=== PATIENT | male | born 1955 | race African-American/Black ===

== ENCOUNTER → 2017-02-16 | Outpatient (CLI) | payer MEDICARE ==
[~2017-02-16] MED LIST: REGADENOSON 0.4 MG/5 ML SYRINGE IV ONE
--- NOTE | 2017-02-16 13:56 | NM ---
EXAMINATION TYPE: NM stress lexiscan cardiolite DATE OF EXAM: 02/16/2017 COMPARISON: NONE HISTORY: Precordial chest pain, abnormal EKG TECHNIQUE: After the intravenous administration of 10.22 mCi Tc 99m Sestamibi - Cardiolite resting S PECT images acquired 45 minutes post injection. The patient received 0.4mg Lexiscan, 27.4 mCi Tc 99m Sestamibi - Stress images obtained [address] injection FINDINGS: Review of stress and rest SPECT images demonstrates fixed defect lateral wall and inferior wall. Foca l area of decreased perfusion on stress imaging involving the cardiac apex. Gated analysis shows norm al wall motion with an estimated left ventricular ejection fraction of 64 %. IMPRESSION: Stress-induced ischemia cardiac apex is difficult to exclude.
--- NOTE | 2017-02-17 07:26 | EST ---
EXERCISE STRESS AGE: 62 SEX: M HT: 6' WT: 341 PROTOCOL: LEXISCAN CARDIOLITE STRESS TEST STAGE: - DURATION OF EXERCISE: - HEART RATE REST: 84 BLOOD PRESSURE REST: 129/70 MAXIMUM HEART RATE ACHIEVED: 92 MAXIMUM BLOOD PRESSURE: 118/74 85% MPHR: - 100% MPHR: - METS: - INDICATIONS: Abnormal EKG. CLINICAL INFORMATION: Baseline EKG revealed a normal sinus rhythm with nonspecific T-wave flattening. With Lexiscan administration, the heart rate changed from 84 to 92 beats per minute and the blood pressure changed from 129/70 to 118/74. EKG remained unremarkable. Patient did not have any angina. By EKG criteria, this is an unremarkable Lexiscan stress test. The nuclear scan results which are more pertinent, will be reported by the radiologist. MMSARITHAL / IJN: [id number] /
== END | disposition home or self-care (01) ==
LOC: RADNMMAIN 09:03
PROVIDERS: ATTEND Internal Medicine
DX: I20.8 Other forms of angina pectoris (principal)
CPT/HCPCS: 93017; 78452; A9500; J2785

== ENCOUNTER 2017-03-02 17:35 | Inpatient (IN) | payer MEDICARE ==
[2017-03-02] MEDS ORDERED: RX INFO: IV CONTRAST WAS GIVEN 1 EACH MISC MISCELLANE PRN (18:45)
--- NOTE | 2017-03-02 18:55 | ED ---
General Adult HPI <Franklin Shaw - Last Filed: 03/02/17 21:18> - General Source: patient, RN notes reviewed Mode of arrival: ambulatory Limitations: no limitations <Eugenio Best - Last Filed: 03/02/17 21:22> - General Chief complaint: Recheck/Abnormal Lab/Rx Stated complaint: swollen glands Time Seen by Provider: 03/02/17 18:17 - History of Present Illness Initial comments: 62-year-old male who presents emergency room today with chief complaint of right -sided throat and neck swelling. He states that he was seen here in the emergency room just 2 days ago he started having some discomfort on the right side was told that there was a salivary stone. States it was 7 mm. States once he got much worse over the last day. She is having a difficult time swallowing at times and eating because his pain. States he is tolerating oral secretions. Patient denies any other complaints associated symptoms. She admits to some fever and chills. Patient denies any recent shortness of breath , chest pain, back pain, abdominal pain, nausea or vomiting, numbness or tingling, dysuria or hematuria, constipation or diarrhea, headaches or visual changes, or any other complaints. (Eugenio Best) - Related Data Home Medications Medication Instructions Recorded Confirmed Losartan/Hydrochlorothiazide 1 tab PO DAILY 03/01/17 03/02/17 [Losartan-Hctz 100-25 mg Tab] metFORMIN HCL 1,000 mg PO BID 03/01/17 03/02/17 Atorvastatin [Lipitor] 20 mg PO HS 03/02/17 03/02/17 Cabergoline 0.5 mg PO MOFR 03/02/17 03/02/17 Previous Rx's Medication Instructions Recorded Amoxic-Pot Clav 875-125Mg 1 tab PO Q12HR #20 tablet 03/01/17 [Augmentin 875-125] Fluticasone Nasal [place] [Flonase 1 spray EA NOSTRIL DAILY #1 bottle 03/01/17 Nasal [place]] Allergies Allergy/AdvReac Type Severity Reaction Status Date / Time No Known Allergies Allergy Verified 03/02/17 19:23 Review of Systems ROS Other: All systems not noted in ROS Statement are negative. <Franklin Shaw - Last Filed: 03/02/17 21:18> ROS Other: All systems not noted in ROS Statement are negative. <Eugenio Best - Last Filed: 03/02/17 21:22> ROS Statement: Those systems with pertinent positive or pertinent negative responses have been documented in the HPI. 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 Eye: Pupils are equal, round and reactive to light, extra-ocular movements are intact. No nystagmus. There is normal conjunctiva bilaterally. No signs of icterus. Ears, nose, mouth and throat: There are moist mucous membranes and no oral lesions. Moderate swelling to the right side of the neck and lower jaw. There is firm on palpation. Neck: The neck is supple, there is no tenderness or JVD. Cardiovascular: There is a regular rate and rhythm. No murmur, rub or gallop is appreciated. Respiratory: Lungs are clear to auscultation, respirations are non-labored, breath sounds are equal. No wheezes, stridor, rales, or rhonchi. Musculoskeletal: Normal ROM, no tenderness. Strength 5/5. Sensation intact. Pulses equal bilaterally 2+. Neurological: A&O x 3. CN II-XII intact, There are no obvious motor or sensory deficits. Coordination appears grossly intact. Speech is normal. Skin: Skin is warm and dry and no rashes or lesions are noted. Psychiatric: Cooperative, appropriate mood & affect, normal judgment. (Eugenio Best) Course <Franklin Shaw - Last Filed: 03/02/17 21:18> <NasirEugenio - Last Filed: 03/02/17 21:22> Vital Signs 03/02/17 03/02/17 18:07 19:36 Temperature 99.9 F H 99.9 F H Pulse Rate 97 90 Respiratory 18 24 Rate Blood Pressure 170/83 131/61 O2 Sat by Pulse 96 97 Oximetry - Reevaluation(s) Reevaluation #1: 03/02/17 21:18 I did personally do a [id number] evaluation the patient did discuss findings with him and his . Patient does have evidence of submandibular soft tissue swelling no palpable mass on excoriation of the floor of the mouth. Patient does maintain his airway. I did review the CAT scan are is evidence of 70 No evidence of any abscess or phlegmon. I did discuss case with Dr. Deutsch. The patient will be admitted with consultation by Dr. Nicole. (Franklin Shaw) Medical Decision Making - Lab Data Result diagrams: 03/02/17 19:14 03/02/17 19:14 <Franklin Shaw - Last Filed: 03/02/17 21:18> - Lab Data Result diagrams: 03/02/17 19:14 03/02/17 19:14 <Eugenio Best - Last Filed: 03/02/17 21:22> - Lab Data Lab Results 03/02/17 03/02/17 03/02/17 Range/Units 19:14 19:14 19:14 WBC 15.2 H (3.8-10.6) k/uL RBC 4.43 (4.30-5.90) m/uL Hgb 12.6 L (13.0-17.5) gm/dL Hct 38.6 L (39.0-53.0) % MCV 87.2 (80.0-100.0) fL MCH 28.3 (25.0-35.0) pg MCHC 32.5 (31.0-37.0) g/dL RDW 13.8 (11.5-15.5) % Plt Count 248 (150-450) k/uL Neutrophils % 77 % Lymphocytes % 14 % Monocytes % 5 % Eosinophils % 3 % Basophils % 1 % Neutrophils # 11.7 H (1.3-7.7) k/uL Lymphocytes # 2.1 (1.0-4.8) k/uL Monocytes # 0.7 (0-1.0) k/uL Eosinophils # 0.4 (0-0.7) k/uL Basophils # 0.1 (0-0.2) k/uL PT 11.2 (9.0-12.0) sec INR 1.1 (<1.2) APTT 27.8 (22.0-30.0) sec Sodium 143 (137-145) mmol/L Potassium 3.5 (3.5-5.1) mmol/L Chloride 102 (98-107) mmol/L Carbon Dioxide 27 (22-30) mmol/L Anion Gap 14 mmol/L BUN 8 L (9-20) mg/dL Creatinine 0.71 (0.66-1.25) mg/dL Est GFR (MDRD) Af Amer >60 (>60 ml/min/1.73 sqM) Est GFR (MDRD) Non-Af >60 (>60 ml/min/1.73 sqM) Glucose 131 H (74-99) mg/dL Calcium 9.7 (8.4-10.2) mg/dL Total Bilirubin 2.6 H (0.2-1.3) mg/dL AST 31 (17-59) U/L ALT 50 (21-72) U/L Alkaline Phosphatase 79 (38-126) U/L Total Protein 8.3 H (6.3-8.2) g/dL Albumin 4.4 (3.5-5.0) g/dL Disposition <Franklin Shaw - Last Filed: 03/02/17 21:18> Time of Disposition: 21:21 <Eugenio Best - Last Filed: 03/02/17 21:22> Clinical Impression: Sialadenitis, Submandibular swelling Disposition: ADMITTED IP TO THIS HOSP Condition: Good Referrals: Yg Gibson MD [Primary Care Provider] - 1-2 days
[2017-03-02 19:21] LABS: Basophils # (A) 0.1 k/uL (0-0.2); Basophils % (A) 1 %; CH 28.8; CHCM 33.2; Eosinophils # (A) 0.4 k/uL (0-0.7); Eosinophils % (A) 3 %; HCT 38.6 % (39.0-53.0); HDW 2.84; HGB 12.6 gm/dL (13.0-17.5); Luc # (Auto) 0.15; Luc % (Auto) 1; Lymphocytes # (A) 2.1 k/uL (1.0-4.8); Lymphocytes % (A) 14 %; MCH 28.3 pg (25.0-35.0); MCHC 32.5 g/dL (31.0-37.0); MCV 87.2 fL (80.0-100.0); Mean Platelet Volume 8.4; Monocytes # (A) 0.7 k/uL (0-1.0); Monocytes % (A) 5 %; Neutrophils # (A) 11.7 k/uL (1.3-7.7); Neutrophils % (A) 77 %; RBC 4.43 m/uL (4.30-5.90); RDW 13.8 % (11.5-15.5); WBC 15.2 k/uL (3.8-10.6)
[2017-03-02 19:29] LABS: INR 1.1 (<1.2); Partial Thromboplastin Time 27.8 sec (22.0-30.0); Prothrombin Time 11.2 sec (9.0-12.0)
[2017-03-02 19:37] LABS: ALT 50 U/L (21-72); AST 31 U/L (17-59); Alkaline Phosphatase 79 U/L (38-126); Anion Gap 14 mmol/L; Blood Urea Nitrogen 8 mg/dL (9-20); Calcium 9.7 mg/dL (8.4-10.2); Carbon Dioxide 27 mmol/L (22-30); Chloride 102 mmol/L (98-107); Glucose 131 mg/dL (74-99); Non-African American GFR(MDRD) >60 (>60 ml/min/1.73 sqM); Potassium 3.5 mmol/L (3.5-5.1); Sodium 143 mmol/L (137-145); Total Bilirubin 2.6 mg/dL (0.2-1.3); Total Protein 8.3 g/dL (6.3-8.2)
--- NOTE | 2017-03-02 20:25 | CT ---
EXAMINATION TYPE: CT soft tissue neck w con DATE OF EXAM: 03/02/2017 8:15 PM COMPARISON: 03/01/2017 HISTORY: Neck swelling under chin area. CT DLP: 687 mGycm Automated exposure control for dose reduction was used. CONTRAST: CT scan of the neck is performed following with IV Contrast, patient injected with 100 mL of Omnipaqu e 300. Axial images are obtained, coronal and sagittal reformatted images are reviewed. FINDINGS: Epiglottis appears normal. Prevertebral soft tissues are not enlarged. Parotid glands are symmetric. The right submandibular salivary gland is slightly larger than the left and shows slight enhancement. . There is increased density on the right side of the hypopharynx which is narrowing the airway to so me degree. This measures up to 15 mm in thickness. There is normal contrast opacification of the carotid arteries and jugular veins. The thyroid gland i s symmetric. The mid and lower trachea appear normal. Tonsils and adenoids appear normal. IMPRESSION: There is evidence of soft tissue swelling on the right side of the hypopharynx and upper trachea that appears new compared to yesterday and consistent with inflammatory process. No abscess seen. There is no drainable fluid collection. There is asymmetric submandibular salivary gland on the right side that could relate to inflammatory process. This is unchanged compared to yesterday. There is new mild subcutaneous edema in the submandibular region compared to last exam.
[2017-03-02] MEDS ORDERED: PIPERACILLIN-TAZOBACTAM 3.375 GM in DEXTROSE/WATER 1 50ML.BAG IVPB STA (20:38)
[2017-03-02] MEDS ORDERED: NALOXONE 0.4 MG/ML 1 ML VIAL IV PRN (21:15)
[2017-03-02] MEDS ORDERED: methylPREDNISolone SOD SUCCI 125 MG/2 ML VIAL IV STA (21:15)
[2017-03-02] MEDS ORDERED: HYDROmorphone 1 MG/ML 1 ML SYRINGE IV PRN (21:15)
[2017-03-02] MEDS ORDERED: ACETAMINOPHEN TAB 325 MG TAB PO PRN (21:15)
[2017-03-02] MEDS ORDERED: ONDANSETRON 4 MG/2 ML VIAL IVP PRN (21:15)
[2017-03-02] MEDS: HYDROcodone/APAP 5-325MG 1 EACH TAB PO PRN (22:34)
[2017-03-03] MEDS: PIPERACILLIN-TAZOBACTAM 3.375 GM in DEXTROSE/WATER 1 50ML.BAG IVPB SCH ×3 (05:19→20:55)
[2017-03-03 07:22] LABS: Glucose,Whole Blood 224 mg/dL (75-99)
[2017-03-03 09:45] LABS: Basophils % (A) 0 %; CH 28.8; CHCM 32.1; Eosinophils # (A) 0.1 k/uL (0-0.7); Eosinophils % (A) 0 %; HCT 39.6 % (39.0-53.0); HDW 2.81; HGB 12.2 gm/dL (13.0-17.5); Luc # (Auto) 0.03; Luc % (Auto) 0; Lymphocytes # (A) 0.9 k/uL (1.0-4.8); Lymphocytes % (A) 6 %; MCH 27.9 pg (25.0-35.0); MCHC 30.8 g/dL (31.0-37.0); MCV 90.4 fL (80.0-100.0); Mean Platelet Volume 8.9; Monocytes # (A) 0.2 k/uL (0-1.0); Monocytes % (A) 1 %; Neutrophils # (A) 14.6 k/uL (1.3-7.7); Neutrophils % (A) 93 %; RBC 4.38 m/uL (4.30-5.90); RDW 13.9 % (11.5-15.5); WBC 15.8 k/uL (3.8-10.6); WBC (Perox) 15.93
[2017-03-03] MEDS: HYDROcodone/APAP 5-325MG 1 EACH TAB PO PRN ×2 (09:54→21:18)
[2017-03-03 10:19] LABS: ALT 47 U/L (21-72); AST 30 U/L (17-59); Alkaline Phosphatase 88 U/L (38-126); Anion Gap 17 mmol/L; Blood Urea Nitrogen 9 mg/dL (9-20); Calcium 9.7 mg/dL (8.4-10.2); Carbon Dioxide 26 mmol/L (22-30); Chloride 99 mmol/L (98-107); Glucose 268 mg/dL (74-99); Non-African American GFR(MDRD) >60 (>60 ml/min/1.73 sqM); Potassium 3.7 mmol/L (3.5-5.1); Sodium 142 mmol/L (137-145); Total Bilirubin 2.1 mg/dL (0.2-1.3); Total Protein 8.2 g/dL (6.3-8.2)
[2017-03-03 11:49] LABS: Glucose,Whole Blood 202 mg/dL (75-99)
[2017-03-03] MEDS ORDERED: DEXAMETHASONE SOD PHOSPHATE 10 MG/ML 1 ML VIAL IV STA (12:06)
[2017-03-03 16:53] LABS: Glucose,Whole Blood 220 mg/dL (75-99)
[2017-03-03 17:04] VITALS: RESP 18
[2017-03-03] MEDS: INSULIN LISPRO (humaLOG) 300 UNIT/3 ML VIAL SQ SCH ×3 (17:45→21:20)
--- NOTE | 2017-03-03 19:49 | P.HPIM ---
History of Present Illness H&P Date: 03/03/17 Chief Complaint: throat and neck swelling 62-year-old -Thai male patient of Dr. Gibson presented with chief complaint of right-sided throat and neck swelling. Patient has history of saliva duct stone and has been seen by primary care physician in his office. Mostly patient's symptoms get better with taking lemon drops and warm compression but this time patient's symptoms got worse and patient started having difficulty swallowing secondary to the pain. Patient denies any fever or chills but did feel hot. Patient stated that he felt that his throat is closing up from sweating and could not open his mouth or chew food She does state he was in the ED the day before and was sent home on oral antibiotic which did not improve his symptoms. He came back to the ED via he had had a fever of 101.[address] neck suggesting soft tissue swelling on the right side of hypopharynx and upper trachea consistent with inflammation process with subcutaneous edema and submandibular region. Patient was given IV antibiotics and one dose of Solu-Medrol and was admitted for further management and Dr. Nicole consulted Review of Systems Constitutional: Reports chills, Reports fever, Reports lethargy Eyes: denies blurred vision, denies discharge Ears: deny: decreased hearing Ears, nose, mouth and throat: Reports ant. neck pain, Reports dysphagia, Reports mouth pain, Reports neck fullness/pressure, Reports neck lump, Reports swelling in mouth, Denies epistaxis, Denies headache, Denies hoarseness, Denies nasal congestion, Denies nasal discharge, Denies nose pain, Denies odynophagia, Denies post-nasal drip, Denies sinus pain, Denies sinus pressure, Denies swelling in throat, Denies sore throat Cardiovascular: Denies chest pain, Denies dyspnea on exertion, Denies edema, Denies high blood pressure, Denies irregular heart beat, Denies palpitations, Denies syncope Respiratory: Denies cough, Denies dyspnea Gastrointestinal: Denies abdominal pain, Denies belching, Denies bloating, Denies BRBPR, Denies change in bowel habits, Denies hematemesis, Denies hematochezia Genitourinary: Denies discharge, Denies dysuria, Denies flank pain Musculoskeletal: Denies limitation of motion, Denies muscle cramps Integumentary: Denies rash, Denies sores, Denies wounds Neurological: Denies change in speech, Denies confusion, Denies double vision, Denies motor disturbance, Denies numbness, Denies paralysis, Denies seizures Psychiatric: Denies anxiety, Denies depression Endocrine: Reports high blood sugars, Denies deepening of the voice, Denies excessive sweating, Denies fatigue Past Medical History Past Medical History: Diabetes Mellitus, Hypertension 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 History of Any Multi-Drug Resistant Organisms: None Reported Past Surgical History: No Surgical Hx Reported Additional Past Anesthesia/Blood Transfusion Reaction / Comment(s): no history of surgery Past Psychological History: No Psychological Hx Reported Smoking Status: Never smoker Past Alcohol Use History: None Reported Past Drug Use History: None Reported - Past Family History Mother Additional Family Medical History / Comment(s): heart failure Medications and Allergies Home Medications Medication Instructions Recorded Confirmed Type Amoxic-Pot Clav 875-125Mg 1 tab PO Q12HR #20 tablet 03/01/17 03/02/17 Rx [Augmentin 875-125] Fluticasone Nasal [place] [Flonase 1 spray EA NOSTRIL DAILY #1 bottle 03/01/17 Rx Nasal [place]] Losartan/Hydrochlorothiazide 1 tab PO DAILY 03/01/17 03/02/17 History [Losartan-Hctz 100-25 mg Tab] metFORMIN HCL 1,000 mg PO BID 03/01/17 03/02/17 History Atorvastatin [Lipitor] 20 mg PO HS 03/02/17 03/02/17 History Cabergoline 0.5 mg PO MOFR 03/02/17 03/02/17 History Allergies Allergy/AdvReac Type Severity Reaction Status Date / Time No Known Allergies Allergy Verified 03/02/17 19:23 Physical Exam Vitals: Vital Signs Temp Pulse Pulse Resp BP BP Pulse Ox 03/03/17 17:01 18 03/03/17 15:00 99.5 F 85 16 127/79 95 03/03/17 07:00 98.2 F 82 18 137/72 93 L 03/02/17 22:20 97.8 F 95 20 124/78 97 03/02/17 21:32 101.2 F H 94 18 136/65 96 03/02/17 19:36 99.9 F H 90 24 131/61 97 Intake and Output 03/03/17 03/03/17 03/03/17 06:59 14:59 22:59 Intake Total 100 Balance 100 Intake: Oral 100 Other: Voiding Method Toilet Toilet Toilet # Voids 1 Weight 148.688 kg - Constitutional General appearance: morbidly obese, no acute distress - EENT Eyes: anicteric sclerae, EOMI, PERRLA ENT: normal oropharynx (moderate swelling in the right side of the neck present with no overlying erythema or discoloration. We'll were laying skin is warm to touch. No dental caries or open wounds seen in the oropharynx.), other, no pharyngeal erythema, no thrush, no tonsillar exudates Ears: bilateral: normal - Neck Neck: no lymphadenopathy, no normal ROM, other (sweats submandibular swelling present on the right side), no thyromegaly Carotids: bilateral: upstroke normal Thyroid: bilateral: normal size - Respiratory Respiratory: bilateral: CTA, negative: dullness, rales, rhonchi, wheezing - Cardiovascular Rhythm: regular Heart sounds: normal: S1, S2 Abnormal Heart Sounds: no systolic murmur ankle Peripheral Edema: bilateral: None dorsalis pedis Peripheral Pulses: bilateral: Normal - Gastrointestinal General gastrointestinal: normal bowel sounds, no organomegaly, soft, no tenderness - Integumentary Integumentary: no rash, no ulcer - Psychiatric Psychiatric: A&O x's 3, appropriate affect Results CBC & Chem 7: 03/03/17 08:38 03/03/17 08:38 Labs: Abnormal Lab Results - Last 24 Hours (Table) 03/02/17 03/03/17 03/03/17 Range/Units 19:14 07:16 08:38 WBC 15.8 H (3.8-10.6) k/uL Hgb 12.2 L (13.0-17.5) gm/dL MCHC 30.8 L (31.0-37.0) g/dL Neutrophils # 14.6 H (1.3-7.7) k/uL Lymphocytes # 0.9 L (1.0-4.8) k/uL BUN 8 L (9-20) mg/dL Glucose 131 H (74-99) mg/dL POC Glucose (mg/dL) 224 H (75-99) mg/dL Total Bilirubin 2.6 H (0.2-1.3) mg/dL Total Protein 8.3 H (6.3-8.2) g/dL 03/03/17 03/03/17 03/03/17 Range/Units 08:38 11:43 16:47 WBC (3.8-10.6) k/uL Hgb (13.0-17.5) gm/dL MCHC (31.0-37.0) g/dL Neutrophils # (1.3-7.7) k/uL Lymphocytes # (1.0-4.8) k/uL BUN (9-20) mg/dL Glucose 268 H (74-99) mg/dL POC Glucose (mg/dL) 202 H 220 H (75-99) mg/dL Total Bilirubin 2.1 H (0.2-1.3) mg/dL Total Protein (6.3-8.2) g/dL Thrombosis Risk Factor Assmnt - DVT/VTE Prophylaxis DVT/VTE Prophylaxis: Pharmacologic Prophylaxis ordered - Choose All That Apply Any of the Below Risk Factors Present?: Yes Each Factor Represents 1 point: Obesity (BMI >25) Other Risk Factors: Yes Each Risk Factor Represents 2 Points: Age 61-74 years Thrombosis Risk Factor Assessment Total Risk Factor Score: 3 Thrombosis Risk Factor Assessment Level: Moderate Risk Assessment and Plan Plan: #1 Neck swelling- secondary to inflammatory process involving the soft tissue of hypopharynx and upper trachea with association of submandibular saliva reclined on the right. Continue Zosyn. Status post one dose of IV Decadron. ENT consulted. Patient feels much better after a dose of Decadron will start patient on soft diet #2 diabetes continue metformin 1000 mg twice a day #3Hyperlipidemia continue atorvastatin 20 mg #4Hypertension continue her Hyzaar #5DVT prophylaxis heparin 5000 every 12 #6GI prophylaxis continue Pepcid 20 mg by mouth daily #7CODE STATUS full code #8Disposition likely discharge tomorrow
--- NOTE | 2017-03-03 20:31 | CONS ---
CONSULTATION REASON FOR CONSULTATION: Right submandibular swelling. HISTORY: This is a 62-year-old, black male, who came 3 days ago presented to the ER with right submandibular swelling which had been increasing over the previous 2 days. He had been placed on antibiotics and discharged. This worsened yesterday and he presented to the ER again. Interestingly enough, his initial CT on 03/01 did show salivary duct stone on the right which was distal with submandibular sialoadenitis. He apparently already had made an appointment with Dr. Nicole for next week for longer term issues in this area but this worsened enough that he came to the ER. When this worsened yet after his first ER visit and he returned yesterday he had worsening swelling and even some dysphagia. His CT appeared worse and therefore he was admitted. He was placed on IV antibiotics and I ordered a dose of IV steroids today after discussing the case with the patient's nurse. He is considerably better now. He can eat and drink and swallow now and even place his partial plate which is mandibular where he could not do this before. Interestingly for the last year he has had intermittent swelling in the right submandibular area with eating or drinking and had been recommended that he use lemon drops when this happens by his primary care physician. This is why he had the appointment with Dr. Nicole already scheduled next week. 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 PAST SURGICAL HISTORY: Noncontributory. ALLERGIES: No known drug allergies. SMOKING AND ALCOHOL: None. CURRENT MEDICATIONS: Current medications at home were Losartan, metformin, Lipitor, Cabergoline. Antibiotics at home were amoxicillin. REVIEW OF SYSTEMS: Noncontributory other than as above. PHYSICAL EXAM: The vital signs are overall within normal limits. He did have a fever last night of 101 in the ER; 99.5 is the peak today. GENERAL: This is well-developed black adult male in no acute distress. He is conversant. His speech is normal. He is handling his own secretions well. There was no stridor. No voice change. HEENT: Head is normocephalic, atraumatic. Ears, bilateral canals clear. Tympanic membranes unremarkable and mobile. Nose shows no drainage or obstruction. Mouth and throat, no trismus. Intraoral exam shows he is partially edentulous and his lower plate was removed for evaluation. Floor of mouth shows an opening approximately 6 mm across in the distal right [place]'s duct with purulence which was cultured. This was approximately 1 cm distal to the [place]'s duct opening on the right. The purulence was free flowing and could be produce more by palpation of the submandibular gland. No calculus was visualized or palpated. The oropharynx is unremarkable. Hypopharynx and larynx shows no edema or swelling. Vocal cords were well visualized with flexible nasopharyngoscopy. The neck is supple without adenopathy. There is moderate submandibular swelling on the right in the submandibular gland diffusely compared to the left and it is a little firmer also. No fluctuation or erythema. ASSESSMENT: Right submandibular sialoadenitis secondary to obstruction-improving. PLAN: The patient is improving nicely and the duct itself may have broken down and started draining with calculus also extruding spontaneously given the fact that he has improved as much as he has as well as the physical exam findings. Certainly he is in much improved. We will continue the Zosyn empirically which is a reasonable choice. He does have Augmentin at home. If he continues to do well overnight he likely could be discharged in the morning but will leave this decision to his internal controls analyst. Does not appear to need any surgical intervention at this point. Certainly he does need outpatient followup to be sure there was no residual calculus as otherwise he would have continued and recurrent difficulties in the future as this was the original etiology for his issues. He does have an appoint with Dr. Nicole already scheduled next week and he prefers to keep this. Certainly I would be happy to see him as an outpatient myself although he is going to keep his appointment Dr. Nicole. Certainly, if he has any questions or concerns in the meantime, he is to call. Increase oral hydration on a routine basis would also be recommended. If further questions or concerns, please free to contact me. I did compare his CTs and the calculus is not apparent on his second CT although there is some dental artifact in this area. Therefore this may have actually spontaneously passed. If there are questions or concerns, please feel free to contact me. MMODL / IJN: [id number] /
[2017-03-03] MEDS ORDERED: ATORVASTATIN 20 MG TAB PO SCH (21:00)
[2017-03-03 21:18] LABS: Hemoglobin A1C 5.9 % (4.2-6.1)
[2017-03-03] MEDS: metFORMIN 500 MG TAB PO SCH (21:18)
[2017-03-03] MEDS: HEPARIN SODIUM,PORCINE 5,000 UNIT/ML 1 ML VIAL SQ SCH (21:20)
[2017-03-03 21:27] LABS: Glucose,Whole Blood 177 mg/dL (75-99)
[2017-03-03 23:19] VITALS: TEMP 97.6
[2017-03-04] MEDS: PIPERACILLIN-TAZOBACTAM 3.375 GM in DEXTROSE/WATER 1 50ML.BAG IVPB SCH (05:23)
[2017-03-04 06:01] VITALS: BP 142/84; PULSE 75
[2017-03-04 07:27] LABS: Glucose,Whole Blood 176 mg/dL (75-99)
[2017-03-04] MEDS: INSULIN LISPRO (humaLOG) 300 UNIT/3 ML VIAL SQ SCH (08:09)
[2017-03-04] MEDS: metFORMIN 500 MG TAB PO SCH (08:10)
[2017-03-04] MEDS: HEPARIN SODIUM,PORCINE 5,000 UNIT/ML 1 ML VIAL SQ SCH (08:11)
[2017-03-04] MEDS ORDERED: LOSARTAN-HCTZ 50-12.5 MG 1 EACH TAB PO SCH (09:00)
[2017-03-04] MEDS ORDERED: FLUTICASONE 50MCG/SPRAY NASAL 16GM EA NOSTRIL SCH (09:00)
[2017-03-04] MEDS ORDERED: FAMOTIDINE 20 MG TAB PO SCH (09:00)
[2017-03-04] MEDS: HYDROcodone/APAP 5-325MG 1 EACH TAB PO PRN (09:05)
[2017-03-04] MEDS ORDERED: CABERGOLINE 0.5 MG PO SCH (15:32)
--- NOTE | 2017-03-07 15:18 | P.DS ---
Providers Date of admission: 03/02/17 21:19 Expected date of discharge: 03/04/17 Attending physician: Janie Deutsch MD Consults: 03/02/17 21:15 Consult Physician Stat Consulting Provider: Nixon Nicole Consult Reason/Comments: Submandibular swelling Do you want consulting provider notified?: Yes Primary care physician: Yg Gibson Hospital Course: 62-year-old -[place] male patient of Dr. Gibson presented with chief complaint of right-sided throat and neck swelling. Patient has history of saliva duct stone and has been seen by primary care physician in his office. Mostly patient's symptoms get better with taking lemon drops and warm compression but this time patient's symptoms got worse and patient started having difficulty swallowing secondary to the pain. Patient denies any fever or chills but did feel hot. Patient stated that he felt that his throat is closing up from sweating and could not open his mouth or chew food She does state he was in the ED the day before and was sent home on oral antibiotic which did not improve his symptoms. He came back to the ED via he had had a fever of 101.[address] neck suggesting soft tissue swelling on the right side of hypopharynx and upper trachea consistent with inflammation process with subcutaneous edema and submandibular region. Patient was given IV antibiotics and one dose of Solu-Medrol and was admitted for further management and Dr. Nicole consulted 03/04: is doing much better today. He tolerated a soft diet without difficulty. Swallowing is improved. Patient will be discharged home today in stable condition with plan to follow up with ENT and Dr. Gibson. Discharge diagnoses: #1 Neck swelling- secondary to inflammatory process involving the soft tissue of hypopharynx and upper trachea with association of submandibular saliva reclined on the right. Continue Zosyn. Status post one dose of IV Decadron. ENT consulted. Patient feels much better after a dose of Decadron will start patient on soft diet #2 diabetes continue metformin 1000 mg twice a day #3Hyperlipidemia continue atorvastatin 20 mg #4Hypertension Discharge plan: Home Impression and plan of care have been directed as dictated by the signing physician. Lay Medina nurse practitioner acting as scribe for signing physician. Patient Condition at Discharge: Good Plan - Discharge Summary New Discharge Prescriptions: New HYDROcodone/APAP 5-325MG [Chilo 5] 1 each PO Q12H PRN #10 tab PRN Reason: Pain methylPREDNISolone Dose Pack [Medrol Dose Pack] 4 mg PO DIRECTED #21 package Continue metFORMIN HCL 1,000 mg PO BID Losartan/Hydrochlorothiazide [Losartan-Hctz 100-25 mg Tab] 1 tab PO DAILY Amoxic-Pot Clav 875-125Mg [Augmentin 875-125] 1 tab PO Q12HR #20 tablet Fluticasone Nasal [place] [Flonase Nasal [place]] 1 spray EA NOSTRIL DAILY #1 bottle Cabergoline 0.5 mg PO MOFR Atorvastatin [Lipitor] 20 mg PO HS Discharge Medication List Amoxic-Pot Clav 875-125Mg [Augmentin 875-125] 1 tab PO Q12HR #20 tablet [Rx] Fluticasone Nasal [place] [Flonase Nasal [place]] 1 spray EA NOSTRIL DAILY #1 bottle 03/01/17 [Rx] Losartan/Hydrochlorothiazide [Losartan-Hctz 100-25 mg Tab] 1 tab PO DAILY [History] metFORMIN HCL 1,000 mg PO BID 03/01/17 [History] Atorvastatin [Lipitor] 20 mg PO HS 03/02/17 [History] Cabergoline 0.5 mg PO MOFR 03/02/17 [History] HYDROcodone/APAP 5-325MG [Chilo 5] 1 each PO Q12H PRN #10 tab 03/04/17 [Rx] methylPREDNISolone Dose Pack [Medrol Dose Pack] 4 mg PO DIRECTED #21 package 03/04/17 [Rx] Follow up Appointment(s)/Referral(s): Yg Gibson MD [Primary Care Provider] - 03/11/17 11:00 am Nixon Nicole MD [STAFF PHYSICIAN] - 1 Week (Office currently closed, please call for appointment.) Patient Instructions/Handouts: Parotid Duct Obstruction (GEN) Activity/Diet/Wound Care/Special Instructions: Cardiac, diabetic diet. Limited activity until follow up . Discharge Disposition: HOME SELF-CARE
== END 2017-03-04 11:01 | disposition home or self-care (01) | DRG 156 ==
LOC: EC 17:35 → 4MS4W 21:19
PROVIDERS: ADMIT Internal Medicine; ATTEND Internal Medicine
DX: K11.20 Sialoadenitis, unspecified (principal); R13.10 Dysphagia, unspecified; I10 Essential (primary) hypertension; E11.9 Type 2 diabetes mellitus without complications; E78.5 Hyperlipidemia, unspecified; K11.5 Sialolithiasis; Z79.899 Other long term (current) drug therapy; Z82.49 Family history of ischemic heart disease and other diseases of the circulatory system; Z79.84 Long term (current) use of oral hypoglycemic drugs
CPT/HCPCS: 36415; 70450; 70491; 80048; 80053; 83036; 85025; 85610; 85730; 87040; 87070; 87075; 87081; 87205; 87430; 96361; 96365; 96374; 96375; 99284

== ENCOUNTER 2017-04-15 10:51 | Day surgery (SDC) | payer MEDICARE ==
[2017-04-13 10:46] VITALS: BMI 45.7
[~2017-04-15 10:51] MED LIST changes: +ALPRAZolam 0.25 MG TAB PO PRN; +ALPRAZolam 0.5 MG TAB PO PRN; +ASPIRIN 325 MG TAB PO STA; +NITROGLYCERIN SL TABS 0.4 MG TAB SUBLINGUAL PRN; -REGADENOSON 0.4 MG/5 ML SYRINGE IV ONE; +SODIUM CHLORIDE 0.9% 1,000 ML in EMPTY BAG 1 BAG IV ONE
[2017-04-15 11:31] LABS: Glucose,Whole Blood 136 mg/dL (75-99)
[2017-04-15] MEDS ORDERED: VERAPAMIL 2.5 MG/ML 2 ML AMP ONE (11:34)
[2017-04-15] MEDS ORDERED: LIDOCAINE 2% INJ 20 MG/ML (20 ML MDV) ONE (11:35)
[2017-04-15 11:45] LABS: Basophils % (A) 1 %; CH 27.9; CHCM 31.9; Eosinophils # (A) 0.2 k/uL (0-0.7); Eosinophils % (A) 3 %; HCT 37.1 % (39.0-53.0); HDW 2.62; HGB 11.8 gm/dL (13.0-17.5); Luc # (Auto) 0.13; Luc % (Auto) 2; Lymphocytes % (A) 29 %; MCHC 31.8 g/dL (31.0-37.0); MCV 87.9 fL (80.0-100.0); Mean Platelet Volume 8.2; Monocytes # (A) 0.3 k/uL (0-1.0); Monocytes % (A) 5 %; Neutrophils # (A) 4.2 k/uL (1.3-7.7); Neutrophils % (A) 61 %; RBC 4.22 m/uL (4.30-5.90); RDW 14.4 % (11.5-15.5); WBC (Perox) 7.04
[2017-04-15] MEDS ORDERED: MIDAZOLAM 2 MG/2 ML VIAL ONE (12:26)
[2017-04-15] MEDS: LIDOCAINE 2% INJ 20 MG/ML SQ ONE ×2 (12:28→13:26)
[2017-04-15] MEDS ORDERED: LIDOCAINE 2% INJ 20 MG/ML SQ ONE (12:28)
[2017-04-15] MEDS ORDERED: fentaNYL (PF) 50 MCG/ML 2 ML AMP ONE (12:34)
[2017-04-15] MEDS ORDERED: VERAPAMIL SYRINGE (5 MG/10 ML) INTRAARTER ONE (12:36)
[2017-04-15] MEDS ORDERED: MIDAZOLAM 2 MG/2 ML VIAL IV ONE (12:36)
[2017-04-15] MEDS ORDERED: fentaNYL (PF) 50 MCG/ML 2 ML AMP IV ONE (12:37)
[2017-04-15] MEDS ORDERED: HEPARIN SODIUM 1,000 UN/ML (10ML VL) ONE (12:38)
[2017-04-15] MEDS ORDERED: HEPARIN SODIUM 1,000 UN/ML (10ML VL) IV ONE (12:39)
[2017-04-15] MEDS ORDERED: BIVALIRUDIN BOLUS 250 MG/50 ML IV ONE (12:58)
[2017-04-15] MEDS ORDERED: BIVALIRUDIN 250 MG in SODIUM CHLORIDE 0.9% 50 ML IV ONE (12:59)
[2017-04-15] MEDS ORDERED: ADENOSINE 180 MG in SODIUM CHLORIDE 0.9% 30 ML IVP ONE (13:02)
[2017-04-15] MEDS ORDERED: IOHEXOL 350 MG/ML 125ML BOTTLE INJ ONE (13:07)
[2017-04-15] MEDS ORDERED: RX INFO: IV CONTRAST WAS GIVEN 1 EACH MISC MISCELLANE PRN (13:14)
[2017-04-15] MEDS ORDERED: SODIUM CHLORIDE 0.9% 1,000 ML IV SCH (13:15)
--- NOTE | 2017-04-15 13:36 | LTR ---
April 15, [address] Gibson: Mr. Camilo Patiño underwent a heart catheterization which revealed intermediate to severe disease involving the mid LAD with FFR of 0.84. I want to thank you for allowing me to participate in his care and please do not hesitate to call if you have any question or concern. Sincerely, CARLA / MARYN: [id number] /
[2017-04-15 13:45] LABS: Anion Gap 8 mmol/L; Blood Urea Nitrogen 8 mg/dL (9-20); Calcium 9.1 mg/dL (8.4-10.2); Carbon Dioxide 29 mmol/L (22-30); Chloride 104 mmol/L (98-107); Glucose 127 mg/dL (74-99); Non-African American GFR(MDRD) >60 (>60 ml/min/1.73 sqM); Potassium 3.1 mmol/L (3.5-5.1); Sodium 141 mmol/L (137-145)
--- NOTE | 2017-04-15 13:46 | CC ---
CARDIAC CATHETERIZATION REPORT DATE OF SERVICE: April 15, 2017 PERFORMING PHYSICIAN: Antoine Valentino MD, wet process technician. PROCEDURE PERFORMED: 1. Selective right and left coronary angiogram. 2. Left heart catheterization. 3. Fractional flow reserve of the LAD.. INDICATION: This is a pleasant 62-year-old gentleman who is known to have diabetes, hypertension, dyslipidemia, as well as he is obese with poor functional capacity, was experiencing chest discomfort and underwent myocardial perfusion imaging stress test as an outpatient. He was found to have an apical ischemia. In view of that, heart catheterization was recommended. APPROACH: Right radial artery. COMPLICATION: None. LEVEL OF SEDATION: Moderate with sedation length of 46 minutes. PROCEDURE DESCRIPTION: After obtaining informed consent, the patient was brought to the cardiac drop crew laborer. The right radial artery was cannulated using micropuncture technique, the micropuncture wire passed easily. Then I placed a 6-Angolan sheath in the right radial artery subsequently I gave the patient 2 mg of verapamil IA and 5000 units of heparin IV. After that, I did selective right and left coronary angiogram using JR4 and JL3 0.5 catheters. After that I did left heart catheterization using the JR4 catheter, which flipped into the LV and then I did pullback. After that, I did FFR of the LAD. Please see a separate paragraph for that. SELECTIVE CORONARY ANGIOGRAM: 1. The right coronary artery is a large caliber vessel and it is a dominant vessel. It is angiographically normal. It distally bifurcates into PDA and PLV branches. Both are angiographically normal. 2. The left main is a short left main but angiographically normal. It bifurcates into the left circumflex and left anterior descending artery. 3. The left circumflex is a large caliber vessel and it is a nondominant vessel. The proximal circ is angiographically normal and gives rise into 3 small obtuse marginal branches. The mid left circumflex is normal and gives rise into a large OM branch which seems to be angiographically normal and the circumflex continued after that as a medium caliber vessel in the AV groove. 4. The LAD: The proximal LAD appeared to be angiographically normal. The mid LAD has a lesion appeared to be in the range of 60%. We FFR'd that lesion and FFR came in to be at 0.84. The LAD distally is angiographically normal. The LAD gives rise into the first diagonal branch which is a medium caliber vessel, seems to be angiographically normal and the second diagonal branch is small caliber vessel. It appears to be angiographically normal. HEMODYNAMICS: The left ventricular end-diastolic pressure was 12-16 mmHg and no gradient was identified across the aortic valve. FFR OF THE LAD: Anticoagulation was initiated using Angiomax. After zeroing the Doppler wire and equalizing between the Doppler wire and the guiding catheter which was JL3.5 guiding catheter with a short tip I did FFR per IV adenosine infusion and the FFR came in to be 0.84. The procedure was completed without any complication. CONCLUSION: 1. Normal and dominant RCA. 2. Normal left main coronary artery. 3. Normal left circumflex coronary system. 4. Intermediate disease involving the mid LAD with FFR came in to be 0.84. POSTPROCEDURE MANAGEMENT: 1. Maximize medical treatment. 2. Follow up with the patient. MMSARITHAL / MARYN: [id number] /
[2017-04-15 17:08] LABS: Glucose,Whole Blood 118 mg/dL (75-99)
[2017-04-15 17:35] VITALS: RESP 16; TEMP 97.2
[2017-04-15 19:06] VITALS: BP 131/71; PULSE 83
== END 2017-04-15 19:55 | disposition home or self-care (01) ==
LOC: CATHCVL 10:51 → 6SEL 13:09 → CATHCVL 19:55
PROVIDERS: ATTEND Internal Medicine Interventional Cardiology
DX: I25.110 Atherosclerotic heart disease of native coronary artery with unstable angina pectoris (principal); I10 Essential (primary) hypertension; E78.5 Hyperlipidemia, unspecified; E11.9 Type 2 diabetes mellitus without complications; E66.9 Obesity, unspecified; Z68.42 Body mass index [BMI] 45.0-49.9, adult; Z82.49 Family history of ischemic heart disease and other diseases of the circulatory system; Z79.84 Long term (current) use of oral hypoglycemic drugs; Z79.899 Other long term (current) drug therapy
CPT/HCPCS: 93571; 93458; 80048; 85025; C1887; C1894 ×2; C1769 ×2; J2001; J2250; J3010; J1644; J0583; J0153; Q9967

== ENCOUNTER → 2022-04-02 | Outpatient (CLI) | payer MEDICARE ==
--- NOTE | 2022-04-02 13:00 | US ---
EXAMINATION TYPE: US carotid duplex BILAT DATE OF EXAM: 04/02/2022 COMPARISON: NONE CLINICAL HISTORY: I65.23 Occlusion and stenosis of bilateral carotid. Stenosis TECHNIQUE: Carotid duplex ultrasound examination. Indirect Doppler criteria was utilized. FINDINGS: EXAM MEASUREMENTS: RIGHT: Peak Systolic Velocity (PSV) cm/sec ----- Right CCA: 90.8 ----- Right ICA: 127.0 ----- Right ECA: 115.7 ICA/CCA ratio: 1.4 RIGHT: End Diastole cm/sec ----- Right CCA: 11.7 ----- Right ICA: 30.0 ----- Right ECA: 10.7 LEFT: Peak Systolic Velocity (PSV) cm/sec ----- Left CCA: 130.2 ----- Left ICA: 105.6 ----- Left ECA: 120.5 ICA/CCA ratio: 0.8 LEFT: End Diastole cm/sec ----- Left CCA: 18.7 ----- Left ICA: 31.8 ----- Left ECA: 13.9 VERTEBRALS (direction of flow): Right Vertebral: Antegrade Left Vertebral: Antegrade Rhythm: Normal CAKE KNOCKER NOTES: No significant stenosis seen bilaterally IMPRESSION: No evidence for hemodynamically significant stenosis. Criteria for Assigning % of Stenosis / Diameter reduction (Estimation based on the indirect measurements of the internal carotid artery velocities (ICA PSV). 1. Normal (no stenosis)=ICA PSV < 125 cm/s: ratio < 2.0: ICA EDV<40 cm/s. 2. Less than 50% stenosis=ICA PSV < 125 cm/s: ratio < 2.0: ICA EDV<40 cm/s. 3. 50 to 69% stenosis=ICA PSV of 125 to 230 cm/s: ration 2.0 ? 4.0: ICA EDV 40-100 cm/s. 4. Greater than 70% stenosis to near occlusion= ICA PSV > 230 cm/s: ratio > 4.0: ICA EDV > 100 cm/s. 5. Near occlusion= ICA PSV velocities may be low or undetectable: variable ratio and ICA EDV. 6. Total occlusion=unable to detect flow.
== END | disposition home or self-care (01) ==
LOC: RADUSWWP 12:23
PROVIDERS: ATTEND Internal Medicine
DX: I65.23 Occlusion and stenosis of bilateral carotid arteries (principal)
CPT/HCPCS: 93880

== ENCOUNTER → 2023-11-14 | Outpatient (CLI) | payer MEDICARE ==
[2023-11-14 12:25] LABS: African American GFR (CKD) >90 (>60 ml/min/1.73 sqM); Blood Urea Nitrogen 16 mg/dL (9-20); Non-African American GFR(CKD) >90 (>60 ml/min/1.73 sqM)
--- NOTE | 2023-11-14 14:17 | CT ---
EXAMINATION TYPE: CT abdomen pelvis wo/w con CT DLP: 5042.50 mGycm, Automated exposure control for dose reduction was used. DATE OF EXAM: 11/14/2023 1:26 PM COMPARISON: None CLINICAL INDICATION:Male, 68 years old with history of D64.9 ANEMIA, UNSPECIFIED; anemia TECHNIQUE: Standard CT of the abdomen and pelvis before and after the uneventful administration of 100 cc of Isovue-300 intravenous and oral contrast. Coronal and sagittal reformats were performed. FINDINGS: LOWER CHEST: Unremarkable ABDOMEN LIVER: Unremarkable GALLBLADDER AND BILE DUCTS: Multiple gallstones identified. No surrounding inflammatory changes. No b iliary ductal dilatation. PANCREAS: Unremarkable. SPLEEN: Unremarkable. ADRENAL GLANDS: Unremarkable. KIDNEYS AND URETERS: No evidence of hydronephrosis or renal calculus. The ureters are unremarkable. The kidneys enhance symmetrically. Contrast is demonstrated within both collecting systems on the del ayed phase. PELVIS BLADDER: Incompletely distended but grossly unremarkable. REPRODUCTIVE: Unremarkable. ABDOMEN & PELVIS STOMACH AND BOWEL: Stomach and duodenum are unremarkable. Colonic diverticulosis without evidence for acute diverticulitis. This limits evaluation for acute bl eed. No focal bowel wall thickening. No evidence of bowel obstruction. PERITONEUM: No evidence of pneumoperitoneum or free fluid. VASCULATURE: No evidence of aortic aneurysm. MUSCULOSKELETAL: No acute osseous abnormalities. Sclerotic focus within the L3 vertebral body like ar eas having a benign bone island. LYMPH NODES: No gross evidence for lymphadenopathy. SOFT TISSUE/ABDOMINAL WALL: Small fat filled umbilical hernia. IMPRESSION: 1. No acute abdominal/pelvic process. 2. Pancolonic diverticulosis. 3. Cholelithiasis.
== END | disposition home or self-care (01) ==
LOC: RADCTMAIN 11:16
PROVIDERS: ATTEND Internal Medicine
DX: K57.30 Diverticulosis of large intestine without perforation or abscess without bleeding (principal); K80.20 Calculus of gallbladder without cholecystitis without obstruction; D64.9 Anemia, unspecified
CPT/HCPCS: 82565; 84520; 74178; 36415; Q9967

== ENCOUNTER 2024-04-10 06:12 | Day surgery (SDC) | payer MEDICARE ==
[2024-04-06 10:03] VITALS: BMI 44.3
[~2024-04-10 06:12] MED LIST changes: -ALPRAZolam 0.25 MG TAB PO PRN; -ALPRAZolam 0.5 MG TAB PO PRN; -ASPIRIN 325 MG TAB PO STA; +LACTATED RINGERS 1,000 ML IV SCH; +LIDOCAINE 1% (10MG/ML) FOR IV START INTRADERMA PRN; -NITROGLYCERIN SL TABS 0.4 MG TAB SUBLINGUAL PRN; -SODIUM CHLORIDE 0.9% 1,000 ML in EMPTY BAG 1 BAG IV ONE
[2024-04-10 06:55] VITALS: TEMP 96.6
[2024-04-10] MEDS ORDERED: ONDANSETRON 4 MG/2 ML VIAL IVP PRN (07:00)
[2024-04-10] MEDS ORDERED: LIDOCAINE 2% (PF) 20 MG/ML 5 ML VIAL ONE (07:15)
[2024-04-10] MEDS ORDERED: PROPOFOL 10 MG/ML 20 ML VIAL IV ONE (07:15)
[2024-04-10] MEDS ORDERED: KETAMINE HCL IN 0.9 % NACL 50 MG/5 ML SYRINGE ONE (07:15)
[2024-04-10] MEDS: IV FLUID CONTINUATION 1,000 ML IV ONE (07:15)
[2024-04-10 07:17] LABS: Glucose,Whole Blood 204 mg/dL (70-110)
--- NOTE | 2024-04-10 07:21 | P.GSHP ---
History of Present Illness H&P Date: 04/10/24 Chief Complaint: GERD, anemia, screening 69-year-old male here for upper and lower endoscopy. Patient was scheduled for colonoscopy however states his primary care doctor told him he should have a upper scope because of chronic reflux and anemia. No bowel complaints. No f amily history of colon cancer. Past Medical History Past Medical History: Diabetes Mellitus, Hyperlipidemia, Hypertension, Osteoarthritis (OA), Sleep Apnea/CPAP/BIPAP Additional Past Medical History / Comment(s): DM II, brain tumor, cataracts History of Any Multi-Drug Resistant Organisms: None Reported Past Surgical History: Orthopedic Surgery Additional Past Surgical History / Comment(s): rt knee surgery for torn tendon, Cataract removal, lens implant. Past Anesthesia/Blood Transfusion Reactions: No Reported Reaction Additional Past Anesthesia/Blood Transfusion Reaction / Comment(s): no history of surgery Smoking Status: Never smoker - Past Family History Mother Additional Family Medical History / Comment(s): heart failure Father Family Medical History: Cancer Medications and Allergies Home Medications Medication Instructions Recorded Confirmed Type metFORMIN HCL [Glucophage] 1,000 mg PO BID 03/01/17 04/10/24 History Cabergoline 0.5 mg PO MOFR 03/02/17 04/10/24 History Fluticasone Nasal [place] [Flonase 1 spray EA NOSTRIL DAILY PRN 04/13/17 04/10/24 History Nasal [place]] Gabapentin [Neurontin] 300 mg PO BID 04/06/24 04/10/24 History Losartan/Hydrochlorothiazide 1 tab PO AC-BRKFST 04/06/24 04/10/24 History [Losartan-Hctz 100-25 mg Tab] Potassium Chloride [Potassium 10 meq PO AC-LUNCH 04/06/24 04/10/24 History Chloride ER (K-Dur GEQ)] Rosuvastatin Calcium 20 mg PO AC-BRKFST 04/06/24 04/10/24 History Tolterodine Tartrate [Tolterodine 4 mg PO DAILY 04/06/24 04/10/24 History Tartrate ER] acetaZOLAMIDE [Diamox Sequels] 500 mg PO BID 04/06/24 04/10/24 History glipiZIDE [Glucotrol] 10 mg PO AC-BRKFST 04/06/24 04/10/24 History Allergies Allergy/AdvReac Type Severity Reaction Status Date / Time No Known Allergies Allergy Verified 04/10/24 06:41 Surgical - Exam Vital Signs Temp Pulse Resp BP Pulse Ox 96.6 F L 98 18 113/70 99 04/10/24 06:53 04/10/24 06:53 04/10/24 06:53 04/10/24 06:53 04/10/24 06:53 Physical exam: General: Well-developed, well-nourished HEENT: Normocephalic, sclerae nonicteric Abdomen: Nontender, nondistended Extremities: No edema Neuro: Alert and oriented Results - Labs Abnormal Lab Results - Last 24 Hours (Table) 04/10/24 Range/Units 07:12 POC Glucose (mg/dL) 204 H (70-110) mg/dL Assessment and Plan (1) Colon cancer screening Narrative/Plan: Will proceed with upper and lower endoscopy Current Visit: Yes Status: Acute Code(s): Z12.11 - ENCOUNTER FOR SCREENING FOR MALIGNANT NEOPLASM OF COLON SNOMED Code(s): 044413975
--- NOTE | 2024-04-10 07:43 | P.PCN ---
Date of Procedure: 04/10/24 Procedure(s) Performed: PREOPERATIVE DIAGNOSIS: GERD, anemia, screening POSTOPERATIVE DIAGNOSIS: Gastritis, cecal polyp, diverticulosis PROCEDURE: 1. EGD with biopsy 2. Colonoscopy with snare polypectomy ANESTHESIA: MAC SURGEON: Eugenio Yusuf M.D. SPECIMENS: Antrum, ENDOSCOPIC PROCEDURE: The patient was on the endoscopy table in the left decubitus position. The Olympus gastroscope was inserted into the oropharynx and passed under direct visualization to the region of the third portion of the duodenum. From that point the scope was slowly withdrawn inspecting all surfaces carefully. There were no neoplastic inflammatory or polypoid lesions throughout the duodenum. The pylorus was widely patent. The stomach was carefully inspected. There was gastritis noted in the prepyloric region. 2 biopsies were taken of this area. The remainder of the stomach showed no significant inflammatory changes ulcerations or polyps. Retroflexion revealed a normal hiatus. The esophagus was then carefully examined. There were no neoplastic inflammatory or polypoid lesions throughout the visualized esophagus. The patient was kept on the endoscopy table in the left decubitus position. The Olympus colonoscope was inserted into the anus and passed under direct visualization to the base of the cecum. The appendiceal orifice was visualized. From that point the scope was slowly withdrawn inspecting all surfaces carefully. There was a polyp at the base of the cecum that was removed using the snare with cautery technique. The remainder of the cecum ascending transverse descending sigmoid and rectum appeared normal. The patient had scattered diverticulosis. The prep was slightly suboptimal. Digital rectal examination was normal. The patient was taken to the recovery room in stable condition per anesthesia guidelines. RECOMMENDATIONS: Await biopsy results. Will contact patient with timing of next colonoscopy.
[2024-04-10 08:08] VITALS: BP 112/56; PULSE 89; RESP 18
== END 2024-04-10 08:34 | disposition home or self-care (01) ==
LOC: ORWHC2ENDO 06:12
PROVIDERS: ATTEND Surgery
DX: Z12.11 Encounter for screening for malignant neoplasm of colon (principal); D12.0 Benign neoplasm of cecum; K57.30 Diverticulosis of large intestine without perforation or abscess without bleeding; K29.50 Unspecified chronic gastritis without bleeding; D64.9 Anemia, unspecified; E11.9 Type 2 diabetes mellitus without complications; E78.5 Hyperlipidemia, unspecified; I10 Essential (primary) hypertension; M19.90 Unspecified osteoarthritis, unspecified site; G47.33 Obstructive sleep apnea (adult) (pediatric); E66.01 Morbid (severe) obesity due to excess calories; Z79.899 Other long term (current) drug therapy
CPT/HCPCS: 45385; 43239; J2704; J2003; 88305

== ENCOUNTER 2024-07-22 05:54 | Inpatient (IN) | payer MEDICARE ==
[2024-07-22] MEDS: SODIUM CHLORIDE 0.9% 500 ML 500 ML IV STA (06:40)
[2024-07-22] MEDS: HYDROmorphone 0.5 MG/0.5 ML SYRINGE IVP STA (06:42)
[2024-07-22] MEDS: ACETAMINOPHEN TAB 500 MG TAB PO STA (06:43)
[2024-07-22 06:48] LABS: Basophils % (A) 0 %; Eosinophils # (A) 0.1 k/uL (0-0.7); Eosinophils % (A) 1 %; HCT 32.5 % (39.0-53.0); HGB 10.2 gm/dL (13.0-17.5); Hypochromasia Slight; Lymphocytes # (A) 1.7 k/uL (1.0-4.8); Lymphocytes % (A) 13 %; MCH 26.5 pg (25.0-35.0); MCHC 31.4 g/dL (31.0-37.0); MCV 84.4 fL (80.0-100.0); Mean Platelet Volume 8.4; Monocytes # (A) 0.4 k/uL (0-1.0); Monocytes % (A) 3 %; Neutrophils # (A) 10.6 k/uL (1.3-7.7); Neutrophils % (A) 81 %; Platelet Count 313 k/uL (150-450); RBC 3.85 m/uL (4.30-5.90); RDW 14.8 % (11.5-15.5); WBC 13.1 k/uL (3.8-10.6)
--- NOTE | 2024-07-22 06:55 | ED ---
Weakness HPI <MarkChito - Last Filed: 07/22/24 08:37> - General Source: patient, EMS, RN notes reviewed Mode of arrival: EMS Limitations: no limitations <Jason Hanna - Last Filed: 07/22/24 13:43> - General Chief complaint: Weakness Stated complaint: Sepsis, Fall Time Seen by Provider: 07/22/24 06:03 - History of Present Illness Initial comments: 69-year-old male presents emergency department with chief complaint of weakness. He states that increased weakness the last 3 to 4 weeks. He states that he rolled out of bed in which he fell onto his right shoulder complaint of right shoulder pain states he could not get up so his called EMS. Patient noted to have a fever he does admit that he has had some cough, cold-like symptoms. Patient denies any dysuria denies abdominal pain denies any head injury no loss conscious denies any blood thinners. Patient states he has increasing weakness with ambulating has not worsened over the last 3 to 4 weeks but has not discussed this with his primary. Denies any focal weakness no neck pain no back pain. (Jason Hanna) - Related Data Home Medications Medication Instructions Recorded Confirmed metFORMIN HCL [Glucophage] 1,000 mg PO BID 03/01/17 04/10/24 Cabergoline 0.5 mg PO MOFR 03/02/17 04/10/24 Fluticasone Nasal [place] [Flonase 1 spray EA NOSTRIL DAILY PRN 04/13/17 04/10/24 Nasal [place]] Gabapentin [Neurontin] 300 mg PO BID 04/06/24 04/10/24 Losartan/Hydrochlorothiazide 1 tab PO AC-BRKFST 04/06/24 04/10/24 [Losartan-Hctz 100-25 mg Tab] Potassium Chloride [Potassium 10 meq PO AC-LUNCH 04/06/24 04/10/24 Chloride ER (K-Dur GEQ)] Rosuvastatin Calcium 20 mg PO AC-BRKFST 04/06/24 04/10/24 Tolterodine Tartrate [Tolterodine 4 mg PO DAILY 04/06/24 04/10/24 Tartrate ER] acetaZOLAMIDE [Diamox Sequels] 500 mg PO BID 04/06/24 04/10/24 glipiZIDE [Glucotrol] 10 mg PO AC-BRKFST 04/06/24 04/10/24 Allergies Allergy/AdvReac Type Severity Reaction Status Date / Time No Known Allergies Allergy Verified 07/22/24 06:06 Review of Systems ROS Other: All systems not noted in ROS Statement are negative. <MarkChito - Last Filed: 07/22/24 08:37> ROS Other: All systems not noted in ROS Statement are negative. <Jason Hanna - Last Filed: 07/22/24 13:43> ROS Statement: Those systems with pertinent positive or pertinent negative responses have been documented in the HPI. Past Medical History Past Medical History: Diabetes Mellitus, Hyperlipidemia, Hypertension, Osteoarthritis (OA), Sleep Apnea/CPAP/BIPAP Additional Past Medical History / Comment(s): DM II, brain tumor, cataracts History of Any Multi-Drug Resistant Organisms: None Reported Past Surgical History: Orthopedic Surgery Additional Past Surgical History / Comment(s): rt knee surgery for torn tendon, Cataract removal, lens implant. Past Anesthesia/Blood Transfusion Reactions: No Reported Reaction Additional Past Anesthesia/Blood Transfusion Reaction / Comment(s): no history of surgery Past Psychological History: No Psychological Hx Reported Smoking Status: Never smoker - Past Family History Mother Additional Family Medical History / Comment(s): heart failure Father Family Medical History: Cancer <Jason Hanna - Last Filed: 07/22/24 13:43> General Exam Limitations: no limitations General appearance: alert, in no apparent distress Head exam: Present: atraumatic, normocephalic, normal inspection Eye exam: Present: normal appearance, PERRL, EOMI. Absent: scleral icterus, conjunctival injection, periorbital swelling ENT exam: Present: normal exam, normal oropharynx, mucous membranes moist Neck exam: Present: normal inspection, full ROM. Absent: tenderness, meningismus, lymphadenopathy Respiratory exam: Present: normal lung sounds bilaterally. Absent: respiratory distress, wheezes, rales, rhonchi, stridor Cardiovascular Exam: Present: normal rhythm, tachycardia, normal heart sounds. Absent: systolic murmur, diastolic murmur, rubs, gallop, clicks GI/Abdominal exam: Present: soft, normal bowel sounds. Absent: distended, tenderness, guarding, rebound, rigid Extremities exam: Present: other (Shoulder tenderness, no's deformity neurovascular intact Limited range of motion) Back exam: Present: full ROM. Absent: tenderness Neurological exam: Present: alert, oriented X3, CN II-XII intact, reflexes normal. Absent: motor sensory deficit Skin exam: Present: warm, dry, intact, normal color. Absent: rash <Jason Hanna - Last Filed: 07/22/24 13:43> Course Vital Signs 07/22/24 07/22/24 07/22/24 06:00 08:14 08:18 Temperature 100.6 F H Pulse Rate 112 H 97 100 Respiratory 18 17 18 Rate Blood Pressure 114/60 133/69 O2 Sat by Pulse 95 95 100 Oximetry 07/22/24 07/22/24 07/22/24 08:20 08:25 08:31 Temperature Pulse Rate 100 98 99 Respiratory 18 18 18 Rate Blood Pressure 130/73 131/67 134/67 O2 Sat by Pulse 99 99 97 Oximetry 07/22/24 07/22/24 07/22/24 08:34 08:35 08:50 Temperature Pulse Rate 99 99 97 Respiratory 18 17 18 Rate Blood Pressure 124/67 126/58 O2 Sat by Pulse 99 98 97 Oximetry 07/22/24 07/22/24 11:55 12:45 Temperature 98.6 F 98.2 F Pulse Rate 87 87 Respiratory 18 18 Rate Blood Pressure 133/73 117/59 O2 Sat by Pulse 96 97 Oximetry EKG Findings - EKG Comments: EKG Findings:: EKG performed at 6: 33 sinus tachycardia rate of 112 MN 193 QRS 109 QT/QTc 321/387 - EKG Results: EKG: interpreted by ERMD <Jason Hanna - Last Filed: 07/22/24 13:43> Procedures - Procedural Sedation *Procedural Sedation Start Time: 08:15 *Procedural Sedation Stop Time: 08:40 *Risks,benefits, and alternative therapies discussed?: Yes *Patient indicates understanding of risk/benefit discussion?: Yes *Indications: fracture/dislocation reduction *Previous Adverse Reaction to Anesthesia/Sedation?: No *ASA Class: II *Mallampati Airway Score: 2 *Time of Last PO Intake: 22:00 Preparation: grade and center marker applied, pulse oximeter, supplemental O2 applied IV Propofol Dose (mgs): 80 Complications: none <Chito Mark - Last Filed: 07/22/24 08:37> - Orthopedic Joint Reduction Joint #1 Consent Obtained: written consent Side: right Joint Reduction Location: shoulder Analgesia: procedural sedation Shoulder Technique Used (if applicable): traction/counter-traction, external rotation Post-Reduction Neuro Exam: intact Post-Reduction Vascular Exam: intact Post Reduction X-Ray Obtained: Yes Post Reduction X-Ray Results: reduced Splint Applied: Yes Patient Tolerated Procedure: well <Jason Hanna - Last Filed: 07/22/24 13:43> Medical Decision Making - Lab Data Result diagrams: 07/22/24 06:37 07/22/24 06:37 <Chito Mark - Last Filed: 07/22/24 08:37> - Lab Data Result diagrams: 07/22/24 06:37 07/22/24 06:37 <Jason Hanna - Last Filed: 07/22/24 13:43> - Medical Decision Making Was pt. sent in by a medical professional or institution (, PA, STAVE LOG CUT OFF SAW OPERATOR, urgent care, hospital, or senior care...) When possible be specific @ -No Did you speak to anyone other than the patient for history (EMS, parent, family, police, friend...)? What history was obtained from this source @ -No Did you review nursing and triage notes (agree or disagree)? Why? @ -I reviewed and agree with nursing and triage notes Were old charts reviewed (outside hosp., previous admission, EMS record, old EKG, old radiological studies, urgent care reports/EKG's, senior care records)? Report findings @ -No old charts were reviewed Differential Diagnosis (chest pain, altered mental status, abdominal pain women, abdominal pain men, vaginal bleeding, weakness, fever, dyspnea, syncope, headache, dizziness, GI bleed, back pain, seizure, CVA, palpatations, mental health, musculoskeletal)? @ -Differential Weakness: Hypoglycemia, shock, sepsis, hyponatremia, anemia, infection, AL, ETOH, adverse medicine reaction, overdose, stroke, this is not meant to be an all-inclusive list. EKG interpreted by me (3pts min.). @ -As above X-rays interpreted by me (1pt min.). @ -Chest x-ray shows no acute cardiopulmonary process. X-ray right shoulder showing anterior dislocation X-ray Limited right shoulder shows adequate reduction CT interpreted by me (1pt min.). @ -None done U/S interpreted by me (1pt. min.). @ -None done What testing was considered but not performed or refused? (CT, X-rays, U/S, labs)? Why? @ -None What meds were considered but not given or refused? Why? @ -None Did you discuss the management of the patient with other professionals (professionals i.e. Dr., PA, STAVE LOG CUT OFF SAW OPERATOR, lab, RT, psych nurse, social welfare administrator, special education instructor, teacher, tax revenue officer, telephonic nurse case manager)? Give summary @ -Dr. Mann for admission Was smoking cessation discussed for >3mins.? @ -No Was critical care preformed (if so, how long)? @ -No Were there social determinants of health that impacted care today? How? (Homelessness, low income, unemployed, alcoholism, drug addiction, transportation, low edu. Level, literacy, decrease access to med. care, penitentiary, rehab)? @ -No Was there de-escalation of care discussed even if they declined (Discuss DNR or withdrawal of care, Hospice)? DNR status @ -No What co-morbidities impacted this encounter? (DM, HTN, Smoking, COPD, CAD, Cancer, CVA, ARF, Chemo, Hep., AIDS, mental health diagnosis, sleep apnea, morbid obesity)? @ -Diabetes hypertension Was patient admitted / discharged? Hospital course, mention meds given and route, prescriptions, significant lab abnormalities, going to OR and other pertinent info. @ -Admitted patient presented for increasing weakness of the last several weeks. Patient unable to get up, no ambulation. Patient did have a fall out of bed today and had right shoulder dislocation which was reduced. Patient is influenza A positive. Patient will be admitted to Dr. Mann he did request patient to be seen by Dr. Holguin/[facility] as he is not in the hospital today. Undiagnosed new problem with uncertain prognosis? @ -No Drug Therapy requiring intensive monitoring for toxicity (Heparin, Nitro, Insulin, Cardizem)? @ -No Were any procedures done? @ -No Diagnosis/symptom? @ -Influenza A, weakness, debility, shoulder dislocation Acute, or Chronic, or Acute on Chronic? @ -Acute Uncomplicated (without systemic symptoms) or Complicated (systemic symptoms)? @ -Uncomplicated Side effects of treatment? @ -No Exacerbation, Progression, or Severe Exacerbation? @ -No Poses a threat to life or bodily function? How? (Chest pain, USA, AL, pneumonia, PE, COPD, DKA, ARF, appy, cholecystitis, CVA, Diverticulitis, Homicidal, Suicidal, threat to staff... and all critical care pts) @ -No (Jason Hanna) - Lab Data Lab Results 07/22/24 07/22/24 07/22/24 Range/Units 06:18 06:37 06:37 WBC 13.1 H (3.8-10.6) k/uL RBC 3.85 L (4.30-5.90) m/uL Hgb 10.2 L (13.0-17.5) gm/dL Hct 32.5 L (39.0-53.0) % MCV 84.4 (80.0-100.0) fL MCH 26.5 (25.0-35.0) pg MCHC 31.4 (31.0-37.0) g/dL RDW 14.8 (11.5-15.5) % Plt Count 313 (150-450) k/uL MPV 8.4 Neutrophils % 81 % Lymphocytes % 13 % Monocytes % 3 % Eosinophils % 1 % Basophils % 0 % Neutrophils # 10.6 H (1.3-7.7) k/uL Lymphocytes # 1.7 (1.0-4.8) k/uL Monocytes # 0.4 (0-1.0) k/uL Eosinophils # 0.1 (0-0.7) k/uL Basophils # 0.0 (0-0.2) k/uL Hypochromasia Slight PT 12.0 (10.0-12.5) sec INR 1.1 (<1.2) APTT 26.0 (22.0-30.0) sec Sodium (137-145) mmol/L Potassium (3.5-5.1) mmol/L Chloride (98-107) mmol/L Carbon Dioxide (22-30) mmol/L Anion Gap mmol/L BUN (9-20) mg/dL Creatinine (0.66-1.25) mg/dL Est GFR (CKD-EPI)AfAm (>60 ml/min/1.73 sqM) Est GFR (CKD-EPI)NonAf (>60 ml/min/1.73 sqM) Glucose (74-99) mg/dL Plasma Lactic Acid [place] (0.7-2.0) mmol/L Calcium (8.4-10.2) mg/dL Magnesium (1.6-2.3) mg/dL Total Bilirubin (0.2-1.3) mg/dL AST (17-59) U/L ALT (4-49) U/L Alkaline Phosphatase (38-126) U/L Troponin I (0.000-0.034) ng/mL Total Protein (6.3-8.2) g/dL Albumin (3.5-5.0) g/dL Urine Color Yellow Urine Appearance Cloudy (Clear) Urine pH 5.5 (5.0-8.0) Ur Specific [place] 1.019 (1.001-1.035) Urine Protein 1+ H (Negative) Urine Glucose (UA) Negative (Negative) Urine Ketones Negative (Negative) Urine Blood Moderate H (Negative) Urine Nitrite Negative (Negative) Urine Bilirubin Negative (Negative) Urine Urobilinogen 4.0 (<2.0) mg/dL Ur Leukocyte Esterase Negative (Negative) Urine RBC <1 (0-5) /hpf Urine WBC 3 (0-5) /hpf Ur Squamous Epith Cells 1 (0-4) /hpf Urine Bacteria Rare H (None) /hpf Urine Mucus Few H (None) /hpf Influenza Type A (PCR) (Not Detectd) Influenza Type B (PCR) (Not Detectd) RSV (PCR) (Not Detectd) SARS-CoV-2 (PCR) (Not Detectd) 07/22/24 07/22/24 07/22/24 Range/Units 06:37 06:37 06:37 WBC (3.8-10.6) k/uL RBC (4.30-5.90) m/uL Hgb (13.0-17.5) gm/dL Hct (39.0-53.0) % MCV (80.0-100.0) fL MCH (25.0-35.0) pg MCHC (31.0-37.0) g/dL RDW (11.5-15.5) % Plt Count (150-450) k/uL MPV Neutrophils % % Lymphocytes % % Monocytes % % Eosinophils % % Basophils % % Neutrophils # (1.3-7.7) k/uL Lymphocytes # (1.0-4.8) k/uL Monocytes # (0-1.0) k/uL Eosinophils # (0-0.7) k/uL Basophils # (0-0.2) k/uL Hypochromasia PT (10.0-12.5) sec INR (<1.2) APTT (22.0-30.0) sec Sodium 140 (137-145) mmol/L Potassium 3.1 L (3.5-5.1) mmol/L Chloride 104 (98-107) mmol/L Carbon Dioxide 20 L (22-30) mmol/L Anion Gap 16 mmol/L BUN 15 (9-20) mg/dL Creatinine 0.94 (0.66-1.25) mg/dL Est GFR (CKD-EPI)AfAm >90 (>60 ml/min/1.73 sqM) Est GFR (CKD-EPI)NonAf 82 (>60 ml/min/1.73 sqM) Glucose 246 H (74-99) mg/dL Plasma Lactic Acid [place] 2.0 (0.7-2.0) mmol/L Calcium 9.6 (8.4-10.2) mg/dL Magnesium 1.5 L (1.6-2.3) mg/dL Total Bilirubin 2.0 H (0.2-1.3) mg/dL AST 49 (17-59) U/L ALT 33 (4-49) U/L Alkaline Phosphatase 75 (38-126) U/L Troponin I <0.012 (0.000-0.034) ng/mL Total Protein 7.9 (6.3-8.2) g/dL Albumin 4.3 (3.5-5.0) g/dL Urine Color Urine Appearance (Clear) Urine pH (5.0-8.0) Ur Specific [place] (1.001-1.035) Urine Protein (Negative) Urine Glucose (UA) (Negative) Urine Ketones (Negative) Urine Blood (Negative) Urine Nitrite (Negative) Urine Bilirubin (Negative) Urine Urobilinogen (<2.0) mg/dL Ur Leukocyte Esterase (Negative) Urine RBC (0-5) /hpf Urine WBC (0-5) /hpf Ur Squamous Epith Cells (0-4) /hpf Urine Bacteria (None) /hpf Urine Mucus (None) /hpf Influenza Type A (PCR) (Not Detectd) Influenza Type B (PCR) (Not Detectd) RSV (PCR) (Not Detectd) SARS-CoV-2 (PCR) (Not Detectd) 07/22/24 Range/Units 06:37 WBC (3.8-10.6) k/uL RBC (4.30-5.90) m/uL Hgb (13.0-17.5) gm/dL Hct (39.0-53.0) % MCV (80.0-100.0) fL MCH (25.0-35.0) pg MCHC (31.0-37.0) g/dL RDW (11.5-15.5) % Plt Count (150-450) k/uL MPV Neutrophils % % Lymphocytes % % Monocytes % % Eosinophils % % Basophils % % Neutrophils # (1.3-7.7) k/uL Lymphocytes # (1.0-4.8) k/uL Monocytes # (0-1.0) k/uL Eosinophils # (0-0.7) k/uL Basophils # (0-0.2) k/uL Hypochromasia PT (10.0-12.5) sec INR (<1.2) APTT (22.0-30.0) sec Sodium (137-145) mmol/L Potassium (3.5-5.1) mmol/L Chloride (98-107) mmol/L Carbon Dioxide (22-30) mmol/L Anion Gap mmol/L BUN (9-20) mg/dL Creatinine (0.66-1.25) mg/dL Est GFR (CKD-EPI)AfAm (>60 ml/min/1.73 sqM) Est GFR (CKD-EPI)NonAf (>60 ml/min/1.73 sqM) Glucose (74-99) mg/dL Plasma Lactic Acid [place] (0.7-2.0) mmol/L Calcium (8.4-10.2) mg/dL Magnesium (1.6-2.3) mg/dL Total Bilirubin (0.2-1.3) mg/dL AST (17-59) U/L ALT (4-49) U/L Alkaline Phosphatase (38-126) U/L Troponin I (0.000-0.034) ng/mL Total Protein (6.3-8.2) g/dL Albumin (3.5-5.0) g/dL Urine Color Urine Appearance (Clear) Urine pH (5.0-8.0) Ur Specific [place] (1.001-1.035) Urine Protein (Negative) Urine Glucose (UA) (Negative) Urine Ketones (Negative) Urine Blood (Negative) Urine Nitrite (Negative) Urine Bilirubin (Negative) Urine Urobilinogen (<2.0) mg/dL Ur Leukocyte Esterase (Negative) Urine RBC (0-5) /hpf Urine WBC (0-5) /hpf Ur Squamous Epith Cells (0-4) /hpf Urine Bacteria (None) /hpf Urine Mucus (None) /hpf Influenza Type A (PCR) Detected A (Not Detectd) Influenza Type B (PCR) Not Detected (Not Detectd) RSV (PCR) Not Detected (Not Detectd) SARS-CoV-2 (PCR) Not Detected (Not Detectd) Disposition <Chito Mark - Last Filed: 07/22/24 08:37> Time of Disposition: 12:54 <Jason Hanna - Last Filed: 07/22/24 13:43> Clinical Impression: Debility, Influenza A, Weakness, Shoulder dislocation Disposition: ADMITTED IP TO THIS HOSP Condition: Fair Referrals: Yg Gibson MD [Primary Care Provider] - 1-2 days
[2024-07-22 06:57] LABS: ALT 33 U/L (4-49); AST 49 U/L (17-59); African American GFR (CKD) >90 (>60 ml/min/1.73 sqM); Albumin 4.3 g/dL (3.5-5.0); Alkaline Phosphatase 75 U/L (38-126); Anion Gap 16 mmol/L; Blood Urea Nitrogen 15 mg/dL (9-20); Calcium 9.6 mg/dL (8.4-10.2); Carbon Dioxide 20 mmol/L (22-30); Chloride 104 mmol/L (98-107); Glucose 246 mg/dL (74-99); Magnesium 1.5 mg/dL (1.6-2.3); Non-African American GFR(CKD) 82 (>60 ml/min/1.73 sqM); Potassium 3.1 mmol/L (3.5-5.1); Sodium 140 mmol/L (137-145); Total Protein 7.9 g/dL (6.3-8.2)
--- NOTE | 2024-07-22 07:12 | XR ---
EXAMINATION TYPE: XR chest 1V DATE OF EXAM: 07/22/2024 7:02 AM COMPARISON: Chest radiographs from 03/30/2010 CLINICAL INDICATION: Male, 69 years old with history of fall,weakness; TECHNIQUE: XR chest 1V Frontal view of the chest. FINDINGS: Lungs/Pleura: There is no evidence of pleural effusion, focal consolidation, or pneumothorax. Pulmonary vascularity: Unremarkable. Heart/mediastinum: Cardiomediastinal silhouette is unremarkable. Musculoskeletal: No acute osseous pathology. The right humeral head is displaced medially and below t he right glenoid IMPRESSION: 1. Anterior inferior shoulder dislocation suspected correlate with physical exam. 2. No acute cardiopulmonary disease/process. [facility], , 07/22/2024 7:10 AM
--- NOTE | 2024-07-22 07:13 | XR ---
EXAMINATION TYPE: XR shoulder limited RT DATE OF EXAM: 07/22/2024 7:02 AM COMPARISON: None CLINICAL INDICATION: Male, 69 years old with history of fall; PHH, pain TECHNIQUE: XR shoulder limited RT; examined in AP, internally rotated and scapular Y projections. FINDINGS: Right humerus is located inferior and medial compared to the glenoid. Remote appearing AC joint injur y with calcification between the clavicle and the coracoid process. No evidence of acute osseous path ology, or soft tissue swelling. The remaining portions of the visualized chest are unremarkable. De generation changes of the acromion, distal clavicle with osteophyte formation. There is osteophyte fo rmation of the glenoid and humeral head. There is joint space narrowing of glenohumeral joint. IMPRESSION: Anterior inferior right shoulder dislocation, no evidence of fracture. No acute osseous pathology. [facility], , 07/22/2024 7:11 AM
[2024-07-22 07:17] LABS: INR 1.1 (<1.2)
[2024-07-22 07:23] LABS: Influenza A Detected (Not Detectd); Influenza B Not Detected (Not Detectd); RSV Not Detected (Not Detectd)
[2024-07-22] MEDS: POTASSIUM CHLORIDE ER 20 MEQ TAB.ER PO STA (07:53)
[2024-07-22] MEDS: MAGNESIUM OXIDE 400 MG TAB PO STA (07:53)
[2024-07-22] MEDS: PROPOFOL 10 MG/ML 20 ML VIAL IV ONE (08:56)
--- NOTE | 2024-07-22 09:05 | XR ---
EXAMINATION TYPE: XR shoulder limited RT, XR shoulder limited RT DATE OF EXAM: 07/22/2024 8:32 AM COMPARISON: None CLINICAL INDICATION: Male, 69 years old with history of shoulder reduction; PHH, pain TECHNIQUE: XR shoulder limited RT, XR shoulder limited RT; examined in AP projections. 2 sequential shoulder frontal radiographs. FINDINGS: 2 sequential shoulder radiographs from most recent demonstrating the right shoulder in appropriate po sition. No evidence of fractures definitively visualized. Remote injury to the AC joint. IMPRESSION: Interval reduction of the right shoulder on the most recent radiograph. No definitive fracture visual ized. [facility], , 07/22/2024 9:02 AM
[2024-07-22] MEDS: SODIUM CHLORIDE 0.9% 500 ML 500 ML IV ONE (10:35)
[2024-07-22] MEDS: SODIUM CHLORIDE 0.9% 1,000 ML IV SCH (10:36)
[2024-07-22] MEDS: IBUPROFEN 600 MG TAB PO STA (11:53)
[2024-07-22 12:32] LABS: Appearance,Urine Cloudy (Clear); Bacteria,Urine Rare /hpf; Bilirubin,Urine Negative (Negative); Blood,Urine Moderate (Negative); Color,Urine Yellow; Glucose,Urine (UA) Negative (Negative); Ketones,Urine Negative (Negative); Leukocyte Esterase,Urine Negative (Negative); Mucus,Urine Few /hpf; Nitrite,Urine Negative (Negative); PH, Urine 5.5 (5.0-8.0); Protein,Urine 1+ (Negative); RBC,Urine <1 /hpf (0-5); Specific Gravity,Urine 1.019 (1.001-1.035); Squamous Epithelial Cell,Urine 1 /hpf (0-4); WBC,Urine 3 /hpf (0-5)
[2024-07-22] MEDS ORDERED: IBUPROFEN 400 MG TAB PO PRN (12:46)
[2024-07-22] MEDS ORDERED: NALOXONE 0.4 MG/ML 1 ML VIAL IV PRN (12:46)
[2024-07-22] MEDS ORDERED: ONDANSETRON 4 MG/2 ML VIAL IVP PRN (12:46)
[2024-07-22] MEDS ORDERED: DEXTROSE 50% SYRINGE 50 ML IVP PRN ×2 (12:49)
[2024-07-22] MEDS: HYDROCORTISONE SUCCINATE 100 MG/2 ML VIAL IV STA (13:45)
[2024-07-22] MEDS: DEXTROSE 5% IN WATER 100 ML with AMIODARONE 150 MG IV ONE (13:45)
--- NOTE | 2024-07-22 14:11 | P.HPIM ---
History of Present Illness This is a pleasant 69 years old -[place] male with past medical history of multiple medical problems including diabetes mellitus. Information were obtained from the patient with the help of at bedside. Patient has been having weakness over the last 2 to 4 weeks. Associated with bilateral lower extremity weakness up-and-down, 1 day is good and the other day the bed. This morning patient was a little bit confused, he was trying to get out of bed as per and then he fell on his right shoulder which led to dislocation of his shoulder that has to be reduced in the emergency room. Patient however denies syncope and he remembers the incident. He related to his generalized weakness and bilateral symmetrical leg weakness. Patient also has been having poor appetite and poor drinking of fluids. He is diabetic but hemoglobin A1c dropped from 6.8 down to 6.1 as per . His weakness is affecting his daily activity, he cannot get up from sitting position. However his mentation at baseline currently he knows in the hospital and he is oriented to time place person follow command and has insight. He has been having some loose bowel movement yesterday and today but no abdominal pain. No vomiting. No specific urinary complaints. Usually he has chronic back pain but currently over the last few days and today he denies any back pain. Also denies tingling or numbness or paresthesia in his legs or saddle area. No double vision or slurred speech. No smoking no alcohol no illicit drugs. Patient had low-grade fever in the emergency room at 100.6. He has leukocytosis of 13.1, hemoglobin 10.2. Chest x-ray showing no acute process per radiologist, I reviewed chest x-ray by myself it looks prominent interstitial markings and there is some haziness in the left lower chest. Also there is anterior shoulder dislocation. Repeat shoulder x-ray showing interval relocation of the right shoulder EKG showing sinus tachycardia at [address]-T changes. In the emergency room he was started on Tamiflu and normal sinus 75 mL/h and he was admitted under service of Dr. Mann who will resume the care of the patient tomorrow Review of Systems Review of systems CONSTITUTIONAL: No fever, no malaise, no fatigue. HEENT: No recent visual problems or hearing problems. Denied any sore throat. CARDIOVASCULAR: No orthopnea, PND, no palpitations, no syncope. PULMONARY: No chest wall tenderness, no hemoptysis. GASTROINTESTINAL: No diarrhea, no nausea, no vomiting, no abdominal pain. Normoactive bowel sounds. NEUROLOGICAL: No headaches, no weakness, no numbness. HEMATOLOGICAL: Denies any bleeding or petechiae. GENITOURINARY: Denies any burning micturition, frequency, or urgency. MUSCULOSKELETAL/RHEUMATOLOGICAL: Denies any joint pain, swelling, or any muscle pain. ENDOCRINE: Denies any polyuria or polydipsia. Past Medical History Past Medical History: Diabetes Mellitus, Hyperlipidemia, Hypertension, Osteoarthritis (OA), Sleep Apnea/CPAP/BIPAP Additional Past Medical History / Comment(s): DM II, brain tumor, cataracts History of Any Multi-Drug Resistant Organisms: None Reported Past Surgical History: Orthopedic Surgery Additional Past Surgical History / Comment(s): rt knee surgery for torn tendon, Cataract removal, lens implant. Past Anesthesia/Blood Transfusion Reactions: No Reported Reaction Additional Past Anesthesia/Blood Transfusion Reaction / Comment(s): no history of surgery Past Psychological History: No Psychological Hx Reported Smoking Status: Never smoker - Past Family History Mother Additional Family Medical History / Comment(s): heart failure Father Family Medical History: Cancer Medications and Allergies Home Medications Medication Instructions Recorded Confirmed Type metFORMIN HCL [Glucophage] 1,000 mg PO BID 03/01/17 04/10/24 History Gabapentin [Neurontin] 300 mg PO BID 04/06/24 04/10/24 History Losartan/Hydrochlorothiazide 1 tab PO AC-BRKFST 04/06/24 04/10/24 History [Losartan-Hctz 100-25 mg Tab] Potassium Chloride [Potassium 10 meq PO AC-LUNCH 04/06/24 04/10/24 History Chloride ER (K-Dur GEQ)] Rosuvastatin Calcium 20 mg PO AC-BRKFST 04/06/24 04/10/24 History acetaZOLAMIDE [Diamox Sequels] 500 mg PO BID 04/06/24 04/10/24 History Cabergoline 0.5 mg PO MOFR 07/22/24 07/22/24 History glipiZIDE XL [Glucotrol Xl] 10 mg PO DAILY 07/22/24 07/22/24 History Allergies Allergy/AdvReac Type Severity Reaction Status Date / Time No Known Allergies Allergy Verified 07/22/24 13:51 Physical Exam Vitals: Vital Signs Temp Pulse Resp BP Pulse Ox 07/22/24 12:45 98.2 F 87 18 117/59 97 07/22/24 11:55 98.6 F 87 18 133/73 96 07/22/24 08:50 97 18 126/58 97 07/22/24 08:35 99 17 124/67 98 07/22/24 08:34 99 18 99 07/22/24 08:31 99 18 134/67 97 07/22/24 08:25 98 18 131/67 99 07/22/24 08:20 100 18 130/73 99 07/22/24 08:18 100 18 100 07/22/24 08:14 97 17 133/69 95 07/22/24 06:00 100.6 F H 112 H 18 114/60 95 Intake and Output 07/21/24 07/22/24 07/22/24 22:59 06:59 14:59 Other: Weight 142.428 kg --GENERAL: The patient is alert and oriented x3, not in any acute distress. Well developed, well nourished. Obese generalized weakness -HEENT: Pupils are round and equally reacting to light. EOMI. No scleral icterus. No conjunctival pallor. Normocephalic, atraumatic. No pharyngeal erythema. No thyromegaly. Dehydrated CARDIOVASCULAR: S1 and S2 present. No murmurs, rubs, or gallops. -PULMONARY: Chest is clear to auscultation, no wheezing , bilateral coarse crackles. ABDOMEN: Soft, nontender, nondistended, normoactive bowel sounds. No palpable organomegaly. MUSCULOSKELETAL: No joint swelling or deformity. EXTREMITIES: No cyanosis, clubbing, or pedal edema. NEUROLOGICAL: Gross neurological examination did not reveal any focal deficits. SKIN: No rashes. no petechiae. Results CBC & Chem 7: 07/22/24 06:37 07/22/24 06:37 Labs: Abnormal Lab Results - Last 24 Hours (Table) 07/22/24 07/22/24 07/22/24 Range/Units 06:18 06:37 06:37 WBC 13.1 H (3.8-10.6) k/uL RBC 3.85 L (4.30-5.90) m/uL Hgb 10.2 L (13.0-17.5) gm/dL Hct 32.5 L (39.0-53.0) % Neutrophils # 10.6 H (1.3-7.7) k/uL Potassium 3.1 L (3.5-5.1) mmol/L Carbon Dioxide 20 L (22-30) mmol/L Glucose 246 H (74-99) mg/dL Magnesium 1.5 L (1.6-2.3) mg/dL Total Bilirubin 2.0 H (0.2-1.3) mg/dL Urine Protein 1+ H (Negative) Urine Blood Moderate H (Negative) Urine Bacteria Rare H (None) /hpf Urine Mucus Few H (None) /hpf Influenza Type A (PCR) (Not Detectd) 07/22/24 Range/Units 06:37 WBC (3.8-10.6) k/uL RBC (4.30-5.90) m/uL Hgb (13.0-17.5) gm/dL Hct (39.0-53.0) % Neutrophils # (1.3-7.7) k/uL Potassium (3.5-5.1) mmol/L Carbon Dioxide (22-30) mmol/L Glucose (74-99) mg/dL Magnesium (1.6-2.3) mg/dL Total Bilirubin (0.2-1.3) mg/dL Urine Protein (Negative) Urine Blood (Negative) Urine Bacteria (None) /hpf Urine Mucus (None) /hpf Influenza Type A (PCR) Detected A (Not Detectd) Assessment and Plan Assessment: Acute influenza A infection with no pneumonia or hypoxia Fall at home without syncope Right shoulder dislocation status post closed reduction in the emergency room Sepsis with fever, leukocytosis and tachycardia Acute bronchitis, there is also some suspicions of lower respiratory tract infection Obesity Diabetes mellitus Dehydration Plan: Start the patient on ceftriaxone and Zithromax Continue with Tamiflu Continue with normal saline 75 mL/h Currently the suspicion of stroke is low, there is no focal neurological deficit however we will continue with neurocheck. Insulin sliding scale Labs and medication were reviewed.. Continue same treatment. Continue with symptomatic treatment. Resume home medication. Monitor labs and vitals. DVT and GI prophylaxis. Further recommendations as per clinical course of the patient DVT prophylaxis: Subcutaneous heparin GI Prophylaxis: Pepcid PT/OT: Pending Prognosis is guarded
[2024-07-22] MEDS: AZITHROMYCIN 500 MG TAB PO SCH (14:30)
[2024-07-22 16:37] LABS: Glucose,Whole Blood 199 mg/dL (70-110)
[2024-07-22] MEDS: INSULIN ASPART (NovoLOG) 100 UNIT/ML VIAL SQ SCH (17:33)
[2024-07-22 20:48] LABS: Glucose,Whole Blood 164 mg/dL (70-110)
[2024-07-22] MEDS: HEPARIN SODIUM,PORCINE 5,000 UNIT/ML 1 ML VIAL SQ SCH (22:08)
[2024-07-22] MEDS: FAMOTIDINE 20 MG/2 ML VIAL IV SCH (22:08)
[2024-07-23 05:47] LABS: Glucose,Whole Blood 183 mg/dL (70-110)
[2024-07-23] MEDS: HEPARIN SODIUM,PORCINE 5,000 UNIT/ML 1 ML VIAL SQ SCH (06:34)
[2024-07-23] MEDS: MAGNESIUM SULFATE-D5W PMX 1 GM in DEXTROSE/WATER 1 100ML.BAG IVPB SCH (06:34)
[2024-07-23 08:59] LABS: African American GFR (CKD) >90 (>60 ml/min/1.73 sqM); Anion Gap 15 mmol/L; Blood Urea Nitrogen 12 mg/dL (9-20); Calcium 9.2 mg/dL (8.4-10.2); Carbon Dioxide 19 mmol/L (22-30); Chloride 106 mmol/L (98-107); Glucose 211 mg/dL (74-99); Non-African American GFR(CKD) >90 (>60 ml/min/1.73 sqM); Potassium 3.7 mmol/L (3.5-5.1); Sodium 140 mmol/L (137-145)
[2024-07-23] MEDS: acetaZOLAMIDE 250 MG TAB PO SCH (09:03)
[2024-07-23] MEDS: OSELTAMIVIR 75 MG CAP PO SCH ×2 (09:03→22:24)
[2024-07-23] MEDS: glipiZIDE 5 MG TAB PO SCH (09:04)
[2024-07-23] MEDS: ATORVASTATIN 40 MG TAB PO SCH (09:04)
[2024-07-23] MEDS: GABAPENTIN 300 MG CAP PO SCH (09:04)
[2024-07-23] MEDS: POTASSIUM CHLORIDE ER 10 MEQ TAB.ER.PRT PO SCH (09:04)
[2024-07-23 10:50] LABS: HCT 33.5 % (39.6-50.0); HGB 10.1 g/dL (13.0-17.0); MCH 26.1 pg (27.0-32.0); MCHC 30.1 g/dL (32.0-37.0); MCV 86.6 FL (80.0-97.0); NRBC Per 100 WBC 0 X 10*3/uL (0.00-0.01); Platelet Count 275 X 10*3/uL (140-440); RBC 3.87 X 10*6/uL (4.40-5.60); RDW 14.9 % (11.5-14.5); WBC 7.16 X 10*3/uL (4.50-10.00)
[2024-07-23 11:51] LABS: Basophils # (A) 0.04 X 10*3/uL (0.00-0.10); Basophils % (A) 0.6 %; Crenated RBC 2+ (None Seen); Eosinophils # (A) 0.05 X 10*3/uL (0.04-0.35); Eosinophils % (A) 0.7 %; Lymphocytes # (A) 1.52 X 10*3/uL (0.90-5.00); Lymphocytes % (A) 21.2 %; Monocytes # (A) 0.29 X 10*3/uL (0.20-1.00); Monocytes % (A) 4.1 %; Neutrophils # (A) 5.22 X 10*3/uL (1.80-7.70); Neutrophils % (A) 72.8 %
[2024-07-23 12:18] LABS: Glucose,Whole Blood 165 mg/dL (70-110)
--- NOTE | 2024-07-23 12:36 | P.CNOR ---
History of Present Illness - [facility] Consult date: 07/23/24 Consult reason: joint pain (Right shoulder dislocation.) History of present illness: Camilo is seen today on consult with history of a fall out of bed, landing directly on the right shoulder yesterday. His called EMS for transportation. The patient has been ill with influenza A and was significantly weak. He was attempting to get out of bed and fell and landed on his right shoulder. He had immediate right shoulder pain. On exam and x-ray in the emergency department he was found to have a dislocated right glenohumeral joint. The dislocation was reduced by the emergency department. He was placed in a sling. He is currently not wearing the sling. We are consulted for orthopedic evaluation. Past Medical History Past Medical History: Diabetes Mellitus, Hyperlipidemia, Hypertension, Osteoarthritis (OA), Sleep Apnea/CPAP/BIPAP Additional Past Medical History / Comment(s): DM II, brain tumor, cataracts History of Any Multi-Drug Resistant Organisms: None Reported Past Surgical History: Orthopedic Surgery Additional Past Surgical History / Comment(s): rt knee surgery for torn tendon, Cataract removal, lens implant. Past Anesthesia/Blood Transfusion Reactions: No Reported Reaction Additional Past Anesthesia/Blood Transfusion Reaction / Comm: no history of surgery Past Psychological History: No Psychological Hx Reported Smoking Status: Never smoker Past Alcohol Use History: None Reported Past Drug Use History: None Reported - Past Family History Mother Additional Family Medical History / Comment(s): heart failure Father Family Medical History: Cancer Medications and Allergies Home Medications Medication Instructions Recorded Confirmed Type metFORMIN HCL [Glucophage] 1,000 mg PO BID 03/01/17 07/22/24 History Gabapentin [Neurontin] 300 mg PO BID 04/06/24 07/22/24 History Losartan/Hydrochlorothiazide 1 tab PO AC-BRKFST 04/06/24 07/22/24 History [Losartan-Hctz 100-25 mg Tab] Potassium Chloride [Potassium 10 meq PO BID 04/06/24 07/22/24 History Chloride ER (K-Dur GEQ)] Rosuvastatin Calcium 20 mg PO DAILY 04/06/24 07/22/24 History acetaZOLAMIDE [Diamox Sequels] 500 mg PO BID 04/06/24 07/22/24 History Cabergoline 0.5 mg PO MOFR 07/22/24 07/22/24 History glipiZIDE XL [Glucotrol Xl] 10 mg PO DAILY 07/22/24 07/22/24 History Allergies Allergy/AdvReac Type Severity Reaction Status Date / Time No Known Allergies Allergy Verified 07/22/24 13:51 Physical Examination This is a pleasant 69-year-old male in no acute distress. He is currently getting and ultrasound of the carotids. His family is present at bedside. I am unable to do a full exam since the assistive technology trainer is actively doing the test at this time. There is minimal soft tissue swelling noted to the shoulder. His arm is resting at his side. He has full wrist and finger motion without difficulty or pain. Neurovascular status to the upper extremity is grossly intact. There are no other obvious musculoskeletal abnormalities on exam. Results X-rays of the right shoulder reveal a shoulder dislocation with subsequent reduction. There is no obvious fracture noted on x-rays. - Labs Labs: Abnormal Lab Results - Last 24 Hours (Table) 07/22/24 07/22/24 07/22/24 Range/Units 06:18 06:37 16:35 RBC (4.40-5.60) X 10*6/uL Hgb (13.0-17.0) g/dL Hct (39.6-50.0) % MCH (27.0-32.0) pg MCHC (32.0-37.0) g/dL RDW (11.5-14.5) % Crenated Cell (None Seen) Carbon Dioxide (22-30) mmol/L Glucose (74-99) mg/dL POC Glucose (mg/dL) 199 H (70-110) mg/dL Hemoglobin A1c 6.4 H (<=6.0) % Urine Protein 1+ H (Negative) Urine Blood Moderate H (Negative) Urine Bacteria Rare H (None) /hpf Urine Mucus Few H (None) /hpf 07/22/24 07/23/24 07/23/24 Range/Units 20:46 05:45 08:18 RBC 3.87 L (4.40-5.60) X 10*6/uL Hgb 10.1 L (13.0-17.0) g/dL Hct 33.5 L (39.6-50.0) % MCH 26.1 L (27.0-32.0) pg MCHC 30.1 L (32.0-37.0) g/dL RDW 14.9 H (11.5-14.5) % Crenated Cell 2+ A (None Seen) Carbon Dioxide (22-30) mmol/L Glucose (74-99) mg/dL POC Glucose (mg/dL) 164 H 183 H (70-110) mg/dL Hemoglobin A1c (<=6.0) % Urine Protein (Negative) Urine Blood (Negative) Urine Bacteria (None) /hpf Urine Mucus (None) /hpf 07/23/24 07/23/24 Range/Units 08:18 12:16 RBC (4.40-5.60) X 10*6/uL Hgb (13.0-17.0) g/dL Hct (39.6-50.0) % MCH (27.0-32.0) pg MCHC (32.0-37.0) g/dL RDW (11.5-14.5) % Crenated Cell (None Seen) Carbon Dioxide 19 L (22-30) mmol/L Glucose 211 H (74-99) mg/dL POC Glucose (mg/dL) 165 H (70-110) mg/dL Hemoglobin A1c (<=6.0) % Urine Protein (Negative) Urine Blood (Negative) Urine Bacteria (None) /hpf Urine Mucus (None) /hpf H & H 07/22/24 07/23/24 Range/Units 06:37 08:18 Hgb 10.2 L 10.1 L (13.0-17.5) gm/dL Hct 32.5 L 33.5 L (39.0-53.0) % Coagulation 07/22/24 Range/Units 06:37 INR 1.1 (<1.2) Result Diagrams: 07/23/24 08:18 07/23/24 08:18 Assessment and Plan (1) Influenza A Current Visit: Yes Status: Acute Code(s): J10.1 - FLU DUE TO OTH IDENT INFLUENZA VIRUS W OTH RESP MANIFEST SNOMED Code(s): 422005049 (2) Shoulder dislocation Current Visit: Yes Status: Acute Code(s): S43.006A - UNSP DISLOCATION OF UNSPECIFIED SHOULDER JOINT, INIT ENCNTR SNOMED Code(s): 114487463 (3) Weakness Current Visit: Yes Status: Acute Code(s): R53.1 - WEAKNESS SNOMED Code(s): 56608176 Plan: The clinical and x-ray findings are discussed with the patient and his family. It is recommended that he use a sling for immobilization. A CT scan has been ordered for further evaluation to rule out a glenoid fracture. We will continue to follow. He will follow-up as an outpatient after discharge.
--- NOTE | 2024-07-23 12:42 | CA ---
Transthoracic Echo Report Name: Camilo Patiño Age: 69 Gender: M : 1955 Exam Date: 07/23/2024 10:38 Exam Location: [facility] Ht (in): 72 Wt (lb): 314 Ordering Physician: Lay Medina Attending/Referring Phys: [id number], Carol Boat Wrapper Jennifer Vincent RDCS Procedure CPT: Indications: LVF, CVA, bubble study Cardiac Hx: Technical Quality: Good Contrast 1: Agitated Saline Total Dose (mL): 9 Contrast 2: Total Dose (mL): MEASUREMENTS (Male / Female) Normal Values 2D ECHO LV Diastolic Diameter PLAX 4.7 cm 4.2 - 5.9 / 3.9 - 5.3 cm LV Systolic Diameter PLAX 3.6 cm IVS Diastolic Thickness 1.4 cm 0.6 - 1.0 / 0.6 - 0.9 cm LVPW Diastolic Thickness 1.4 cm 0.6 - 1.0 / 0.6 - 0.9 cm LV Relative Wall Thickness 0.6 RV Internal Dim ED PLAX 3.3 cm Aortic Root Diameter 1.7 cm LA Systolic Diameter LX 3.7 cm 3.0 - 4.0 / 2.7 - 3.8 cm LV Diastolic Volume MOD 4C 140.9 cm??? LV Systolic Volume MOD 4C 62.9 cm??? LV Ejection Fraction MOD 4C 55.4 % LV Cardiac Index MOD 4C 2832.8 cm???/min???m??? LV Diastolic Length 4C 8.4 cm LV Systolic Length 4C 7.3 cm LV Diastolic Volume MOD 2C 106.9 cm??? LV Systolic Volume MOD 2C 36.6 cm??? LV Ejection Fraction MOD 2C 65.8 % LV Cardiac Index MOD 2C 2555.4 cm???/min???m??? LV Diastolic Length 2C 7.9 cm LV Systolic Length 2C 6.9 cm LA Volume 49.5 cm??? 18 - 58 / 22 - 52 cm??? LA Volume Index 18.0 cm???/m??? 16 - 28 cm???/m??? M-MODE Aortic Root Diameter MM 3.9 cm AV Cusp Separation MM 2.7 cm FINDINGS Left Ventricle Left ventricular ejection fraction is estimated at 55-60 %. Left ventricular cavity size normal. Moderate concentric left ventricular hypertrophy. Normal left ventricular wall motion. Right Ventricle Mild right ventricular dilatation. Unable to estimate the right ventricular systolic pressure. Right Atrium Normal right atrial size. No right atrial thrombus or mass seen. Left Atrium Normal left atrial size. No left atrial thrombus or mass present. Mitral Valve Structurally normal mitral valve. No mitral stenosis, regurgitation or prolapse. Aortic Valve Trileaflet aortic valve. No aortic valve stenosis or regurgitation. Tricuspid Valve Structurally normal tricuspid valve. No tricuspid stenosis, regurgitation or prolapse. Pulmonic Valve Structurally normal pulmonic valve. No pulmonic regurgitation. Pericardium No pericardial effusion. Aorta Mild aortic dilatation at the level of the sinuses of valsalva 39 mm CONCLUSIONS Normal biventricular systolic function No significant valvular abnormalities Mildly enlarged RV No pericardial effusion Previewed by: Dr. Antoine Valentino MD (Electronically Signed) Final Date: 23 July 2024 12:41
--- NOTE | 2024-07-23 12:53 | US ---
EXAMINATION TYPE: US carotid duplex BILAT DATE OF EXAM: 07/23/2024 COMPARISON: 04/02/2022 CLINICAL INDICATION: Male, 69 years old with history of LVF; Right shoulder dislocation with right ar m weakness Additional History: .... TECHNIQUE: Grayscale, color Doppler and spectral Doppler evaluation of the bilateral carotid systems and vertebral arteries. Indirect Doppler criteria was utilized. FINDINGS: EXAM MEASUREMENTS: RIGHT: Peak Systolic Velocity (PSV) cm/sec ----- Right CCA: 107 ----- Right ICA: 119 ----- Right ECA: 104 ICA/CCA ratio: 1.1 RIGHT: End Diastole cm/sec ----- Right CCA: 22 ----- Right ICA: 27 ----- Right ECA: 13 LEFT: Peak Systolic Velocity (PSV) cm/sec ----- Left CCA: 121 ----- Left ICA: 90 ----- Left ECA: 100 ICA/CCA ratio: 0.7 LEFT: End Diastole cm/sec ----- Left CCA: 20 ----- Left ICA: 28 ----- Left ECA: 20 VERTEBRALS (direction of flow): Right Vertebral: Antegrade Left Vertebral: Antegrade Rhythm: Normal SCHOOL BUS OPERATOR NOTES: No intimal thickening, carotid plaque, or elevated velocities seen. Color Doppler imaging shows patency with blood flow throughout the carotid artery. Spectral waveforms are within normal limits. IMPRESSION: No evidence for hemodynamically significant stenosis. Criteria for Assigning % of Stenosis / Diameter reduction (Estimation based on the indirect measurements of the internal carotid artery velocities (ICA PSV). 1. Normal (no stenosis)=ICA PSV < 125 cm/s: ratio < 2.0: ICA EDV<40 cm/s. 2. Less than 50% stenosis=ICA PSV < 125 cm/s: ratio < 2.0: ICA EDV<40 cm/s. 3. 50 to 69% stenosis=ICA PSV of 125 to 230 cm/s: ration 2.0 ? 4.0: ICA EDV 40-100 cm/s. 4. Greater than 70% stenosis to near occlusion= ICA PSV > 230 cm/s: ratio > 4.0: ICA EDV > 100 cm/s. 5. Near occlusion= ICA PSV velocities may be low or undetectable: variable ratio and ICA EDV. 6. Total occlusion=unable to detect flow. [facility], , 07/23/2024 12:50 PM
--- NOTE | 2024-07-23 13:07 | P.PN ---
Subjective Progress Note Date: 07/23/24 HISTORY OF PRESENT ILLNESS: This is a 69-year-old -[place] gentleman with a previous medical history significant for hypertension and hypertensive cardiovascular disease, hyperlipidemia, diabetes mellitus type 2, history of pituitary adenoma currently on cabergoline 0.5 mg Tuesday and Tuesday, detrusor instability, enlarged prostate, allergic rhinitis, diabetic neuropathy, glaucoma, patient presented to the emergency department at [facility] yesterday with generalized weakness and not able to get out of the bed, apparently he rolled out of the bed and landed on the floor, he dislocated his shoulder, status post duction under sedation in the ER patient was found to have influenza A, he has a chest x-ray did not show evidence of acute abnormalities, patient was extremely weak was not able to get up and move around, therefore the patient was admitted to the hospital for evaluation by physical therapy and Occupational Therapy, he was started IV antibiotic empirically, and I started the patient on oseltamavir 75 mg orally twice every day for the next 5 days. 07/23: Patient is laying down in bed in no apparent distress, he continues to be generally weak, he denies any chest pain, or shortness of breath, he has no abdominal pain, nausea vomiting or diarrhea, patient will be seen in consultation by physical therapy occupational therapy and will likely require some sort of subacute rehabilitation, patient does appear to have significant weakness in the right upper extremity, CT scan of the right shoulder was obtained by orthopedic surgery, I will obtain CT scan of the brain without contrast and MRI of the brain with and without sheryl, ultrasound of the carotid echocardiogram for evaluation aspirin statin neurology consultation rule out any CVA. REVIEW OF SYSTEMS: Constitutional: Positive for documented fever, no chills, no night sweats. No weight change. No weakness, fatigue or lethargy. No daytime sleepiness. EENT: No headache. No blurred vision or double vision, no loss of vision. No loss of Hearing, no ringing in the ears, no dizziness. No nasal drainage or congestion. No epistaxis. No sore throat. Lungs: No shortness of breath, occasional cough, no sputum production. No wheezing. Reports dyspnea with activity. Cardiovascular: No chest pain, no lower extremity edema. No palpitations. No paroxysmal nocturnal dyspnea. No orthopnea. No lightheadedness or dizziness. No syncopal episodes. Abdominal: Reports no abdominal pain. No nausea, vomiting. No diarrhea. No constipation. No bloody or tarry stools reports loss of appetite. Genitourinary: No dysuria, increased frequency, urgency. No urinary retention. Musculoskeletal: No myalgias. positive for muscle weakness right upper extremity, positive for gait dysfunction, no frequent falls. No back pain. No neck pain. Integumentary: No wounds, no lesions. No rash or pruritus. No unusual bruising. No change in hair or nails. Neurologic: No aphasia. No facial droop. No change in mentation. No head injury. No headache. No paralysis. No paresthesia. Psychiatric: No depression. No anxiety. No mood swings. Endocrine: No abnormal blood sugars. No weight change. PHYSICAL EXAMINATION: General: 69-year-old -[place] gentleman lying down in bed in no distress. HEENT: Head is atraumatic, normocephalic, pupils were equal round reactive to light and recommendation, extraocular muscle movement were intact, sclera nonicteric, conjunctivae were pale, mucous membranes of the mouth are somewhat dry. Neck: Supple, no JVP, normal carotid upstroke bilaterally, no lymphadenopathy. Chest: Decreased breath sounds at the bases, few rhonchi, no expiratory wheezes, no chest wall tenderness, no intercostal retractions. Heart: First heart sound is normal, second heart sounds normal, there is systolic ejection murmur 2 over systolic in the left sternal border. Abdomen: Soft, nontender, nondistended, positive bowel sounds. Extremities: There is no edema no calf tenderness DP +2 bilaterally. Neurologic examination: Patient is awake alert and oriented x3, cranial nerves II-12 appear grossly intact, muscle power were 2 out of 5 in right upper extremity and 4 out of 5 in left upper extremity and 4 out of 5 in bilateral lower extremities, deep tendon reflexes normal bilaterally. ASSESSMENT AND PLAN: 1. Acute influenza A with SIRS and possible acute bronchitis. Continue IV fluid resuscitation in the form of normal saline at 75 cc an hour, continue Tamiflu 75 mg orally twice every day, continue empiric IV antibiotic in the form of Rocephin 1 g piggyback every 24 hours, Zithromax 500 mg orally once every day, monitor the patient's symptoms very closely, repeat labs tomorrow morning. 2. Severe hypokalemia and hypomagnesemia patient will be receiving potassium s upplement 10 mill equivalent orally once every day, start the patient on magnesium 1 g of piggyback times 1 repeat magnesium tomorrow morning. 3. Generalized weakness and inability to ambulate with recurrent falls. Physical therapy and Occupational Therapy evaluation follow-up with the patient very closely. 4. Right shoulder dislocation status post reduction with orthopedic consultation ordered CT scan of the shoulder to rule out any glenoid fracture. 5. Right upper extremity weakness rule out CVA. Stat CT scan of the brain without contrast along with aspirin 81 mg once every day, continue rosuvastatin, neurology consultation, MRI of the brain with and without sheryl, echocardiogram carotid ultrasound. 6. Hypertension and hypertensive cardiovascular disease currently hypotensive hold losartan hydrochlorothiazide for now, continue IV fluid resuscitation, monitor the patient blood pressure very closely. 7. Leukocytosis likely due to sepsis due to influenza A. Possible bronchitis. Continue IV antibiotic as well as Tamiflu, continue IV fluid resuscitation as well 8. Mixed hyperlipidemia continue rosuvastatin 20 mg once every day, monitor patient lipid panel, keep LDL 55-70. 9. Diabetes mellitus type 2. Resume the patient on glipizide 10 mg orally once every day, along with a sliding scale insulin. 10. History of pituitary adenoma continue cabergoline 0.5 mg orally Tuesday and Tuesday. The patient cortisol level, check the patient prolactin level as well. If the patient is not getting better, MRI of the brain will be done. 11. [id number]. instability. Stable at this time. Hold off Detrol LA. 12. DVT prophylaxis. Continue patient on heparin 5000 units subcutaneously every 8 hours. 13. GI prophylaxis. Continue Protonix 40 mg orally once every day. 14. Patient is full code. 15. Prognosis is guarded. Objective - Vital Signs Vital signs: Vital Signs Temp 99.4 F 07/23/24 01:59 Pulse 93 07/23/24 01:59 Resp 18 07/23/24 01:59 BP 120/73 07/23/24 01:59 Pulse Ox 98 07/23/24 01:59 FiO2 Intake & Output 07/22/24 07/22/24 07/23/24 06:59 18:59 06:59 Weight 142.428 kg 142.428 kg Other: Voiding Method Urinal # Voids 2 - Labs CBC & Chem 7: 07/23/24 08:18 07/23/24 08:18 Labs: Abnormal Lab Results - Last 24 Hours (Table) 07/22/24 07/22/24 07/22/24 Range/Units 06:18 06:37 06:37 WBC 13.1 H (3.8-10.6) k/uL RBC 3.85 L (4.30-5.90) m/uL Hgb 10.2 L (13.0-17.5) gm/dL Hct 32.5 L (39.0-53.0) % Neutrophils # 10.6 H (1.3-7.7) k/uL Potassium 3.1 L (3.5-5.1) mmol/L Carbon Dioxide 20 L (22-30) mmol/L Glucose 246 H (74-99) mg/dL POC Glucose (mg/dL) (70-110) mg/dL Magnesium 1.5 L (1.6-2.3) mg/dL Total Bilirubin 2.0 H (0.2-1.3) mg/dL Urine Protein 1+ H (Negative) Urine Blood Moderate H (Negative) Urine Bacteria Rare H (None) /hpf Urine Mucus Few H (None) /hpf Influenza Type A (PCR) (Not Detectd) 07/22/24 07/22/24 07/22/24 Range/Units 06:37 16:35 20:46 WBC (3.8-10.6) k/uL RBC (4.30-5.90) m/uL Hgb (13.0-17.5) gm/dL Hct (39.0-53.0) % Neutrophils # (1.3-7.7) k/uL Potassium (3.5-5.1) mmol/L Carbon Dioxide (22-30) mmol/L Glucose (74-99) mg/dL POC Glucose (mg/dL) 199 H 164 H (70-110) mg/dL Magnesium (1.6-2.3) mg/dL Total Bilirubin (0.2-1.3) mg/dL Urine Protein (Negative) Urine Blood (Negative) Urine Bacteria (None) /hpf Urine Mucus (None) /hpf Influenza Type A (PCR) Detected A (Not Detectd) 07/23/24 Range/Units 05:45 WBC (3.8-10.6) k/uL RBC (4.30-5.90) m/uL Hgb (13.0-17.5) gm/dL Hct (39.0-53.0) % Neutrophils # (1.3-7.7) k/uL Potassium (3.5-5.1) mmol/L Carbon Dioxide (22-30) mmol/L Glucose (74-99) mg/dL POC Glucose (mg/dL) 183 H (70-110) mg/dL Magnesium (1.6-2.3) mg/dL Total Bilirubin (0.2-1.3) mg/dL Urine Protein (Negative) Urine Blood (Negative) Urine Bacteria (None) /hpf Urine Mucus (None) /hpf Influenza Type A (PCR) (Not Detectd)
[2024-07-23] MEDS: ASPIRIN 81 MG PO SCH (13:33)
--- NOTE | 2024-07-23 16:25 | CT ---
EXAMINATION TYPE: CT brain wo con DATE OF EXAM: 07/23/2024 4:20 PM COMPARISON: 03/01/2017. CLINICAL INDICATION: Male, 69 years old with history of CVA, weakness, ams TECHNIQUE: Brain: Axial CT images of the brain were obtained with coronal and sagittal reformats created and rev iewed. Contrast used: None. Oral contrast used: None. CT DLP: 1150.5 mGycm, Automated exposure control for dose reduction was used. FINDINGS: Brain: Extra-axial spaces: No abnormal extra-axial fluid collections. Ventricular system: Dilatation in proportion to cerebral atrophy. Cerebral parenchyma: Cerebral atrophy. No acute intraparenchymal hemorrhage or mass effect. The gamez -white junction is well differentiated. Scattered hypoattenuating areas are seen within the white mat ter. Cerebellum: Unremarkable. Mass effect: No evidence of midline shift. Intracranial vasculature: Atherosclerotic calcifications of the intracranial vessels. Soft tissues: Normal. Calvarium/osseous structures: No depressed skull fracture. Paranasal sinuses and mastoid air cells: Mild scattered paranasal sinus disease. Visualized orbits: Bilateral aphakia IMPRESSION: 1. No acute intracranial process. 2. Nonspecific white matter changes, likely secondary to chronic small vessel ischemic disease. [facility], , 07/23/2024 4:23 PM
--- NOTE | 2024-07-23 16:46 | CT ---
EXAMINATION TYPE: CT shoulder RT wo con DATE OF EXAM: 07/23/2024 4:34 PM COMPARISON: None. CLINICAL INDICATION: Male, 69 years old with history of Eval s/p dislocation, right shoulder pain TECHNIQUE: Contrast used: mL of , (none if empty) Oral contrast used: (none if empty) Axial images at 2 mm thick sections. Reconstructed images in the coronal and sagittal planes. 3-D re constructive images performed on separate computer by the technologist are reviewed. FINDINGS: No acute displaced fractures evident. Humeral head articulates with the glenoid. Acromioclavicular junction appears intact. Some hypertroph y is present with inferior spurring which can contribute to impingement syndrome. Coracoid appears in tact and coronal plane. Soft tissues appear unremarkable. Muscular density appears appropriate. Glenoid appears intact. No Bankart or Hill-Sachs fractures evident. IMPRESSION: 1. NO ACUTE FRACTURES POST DISLOCATION WITH REDUCTION. [facility], , 07/23/2024 4:43 PM
[2024-07-23 17:09] LABS: Glucose,Whole Blood 157 mg/dL (70-110)
[2024-07-23 20:54] LABS: Glucose,Whole Blood 169 mg/dL (70-110)
[2024-07-23] MEDS: LATANOPROST 0.005% OPHTH DROPS 2.5 ML BTL LEFT EYE SCH (22:08)
[2024-07-23] MEDS: MELATONIN 3 MG TABLET PO SCH (22:24)
[2024-07-23] MEDS: OSELTAMIVIR 75 MG CAP PO STA (22:24)
[2024-07-23] MEDS: ACETAMINOPHEN TAB 325 MG TAB PO PRN (22:26)
[2024-07-24 06:01] LABS: Glucose,Whole Blood 215 mg/dL (70-110)
[2024-07-24] MEDS ORDERED: LORazepam 2 MG/ML INJ IV PRN (06:40)
--- NOTE | 2024-07-24 08:03 | P.CNNES ---
History of Present Illness Consult date: 07/23/24 Requesting physician: Lay Medina Reason for Consult: CVA History of Present Illness: Patient is a 69-year-old left-handed male came to the hospital by ambulance yesterday at 5:54 AM after he fell out of the bed, and landed between the dresser and the bed and could not get out. Patient's called the ambulance. Patient denies any loss of consciousness and remembers the fall very well. Patient's was also present, who also provided with a history. She mentions that for the last couple weeks he has not been acting normal. Prior to that he was perfectly fine, walks without any issues drives and is otherwise normal state of health. In the last 2 weeks, he has been feeling weak and while wa lking has to hang onto something. His legs felt like cement, could not move as normal. He was not able to do things that he wanted to do. She noticed that he was dropping things with his right hand. When trying to touch the phone to dial the number, he was misjudging and not reaching the phone. Once he dropped the phone to the floor, was trying to reach with his right hand and could not get to the phone. His hands has been shaking, not eating or drinking very little to eat. Also had diarrhea. He is also sleeping early and sometimes sleeping all day long, which is not usual. She has noticed that sometimes he has difficulty with comprehension. She has to repeat a few times so he can comprehend. She has noticed that he is moving around all night long and sometimes looks like he has a blank stare. A few times he went to the bathroom, and could not get up, or took long time to get up. Patient states that yesterday, prior to arrival he remembers sitting up on the side of the bed and then fell on his right side between the CPAP and the dresser and could not get up. Patient denies any facial droop, slurred speech or visual disturbance. As per EMS flowsheet, it was reported that patient rolled out of bed and that he is too weak to get up and she cannot get him up or self. Patient lost control of his bowels and diarrhea. Patient was found laying on his right side in betw een a dresser in the bed. Patient states that he did not hurt and did not hit his head but needs help up. Patient was tangled up in his CPAP mask tubing. Patient was noted to be hot to the touch of fast ED score was negative. Patient's mentioned that patient has been increasingly weak for about 3 to 4 weeks. Patient has no appetite. He has lost weight in the last few weeks. He also has had moments of confusion and is also having bouts of incontinence of urine and stool. Patient's blood glucose was 271. Oral temperature 101.4. Patient's vitals at the scene was blood pressure 135/72, pulse rate 06/14/2011 saturation 95%. Vital signs on arrival blood pressure 114/60, pulse rate 1 and 12. His Tmax is 100.6. Blood test shows WBC 13.1 hemoglobin 10.2, platelets 313. PT PTT aleks l, sodium is normal potassium 3.1. Renal functions is normal, hepatic panel normal troponin negative UA negative. Influenza A positive. RSV and coronavirus PCR negative. TSH is normal. EKG showed sinus tachycardia. Chest x-ray showed anterior inferior shoulder dislocation suspected, correlate with physical exam. No acute cardiopulmonary process. Patient underwent interval reduction of the right shoulder. CT head showed no acute intracranial process. Nonspecific white matter changes, likely secondary to chronic small vessel ischemic disease. I personally reviewed CT head, agree with the findings. Patient has history of diabetes for last 4 years, also has hypertension and hyperlipidemia. Denies any tobacco or alcohol use. Does not have a pacemaker. Patient has history of low back pain off and on for years. He rates it at x 10/10, but is localized goes all the way across the back but no radiation to the legs. He also has torn tendon in the right knee, which has been repaired. He has to brace his knee. Patient denies any history of strokes or TIA. No history of seizures. He does not take any antiplatelet or anticoagulants. Patient dislocated the shoulder from the fall. In the ER it was reduced, but then happened again and required second time reduction. He requires assistance to get to the bathroom. Review of Systems All pertinent positive and negative review of systems mentioned in the HPI. Past Medical History Past Medical History: Diabetes Mellitus, Hyperlipidemia, Hypertension, Osteoarthritis (OA), Sleep Apnea/CPAP/BIPAP Additional Past Medical History / Comment(s): DM II, brain tumor, cataracts History of Any Multi-Drug Resistant Organisms: None Reported Past Surgical History: Orthopedic Surgery Additional Past Surgical History / Comment(s): rt knee surgery for torn tendon, Cataract removal, lens implant. Past Anesthesia/Blood Transfusion Reactions: No Reported Reaction Additional Past Anesthesia/Blood Transfusion Reaction / Comment(s): no history of surgery Past Psychological History: No Psychological Hx Reported Smoking Status: Never smoker Past Alcohol Use History: None Reported Past Drug Use History: None Reported - Past Family History Mother Additional Family Medical History / Comment(s): heart failure Father Family Medical History: Cancer Medications and Allergies Home Medications Medication Instructions Recorded Confirmed Type metFORMIN HCL [Glucophage] 1,000 mg PO BID 03/01/17 07/22/24 History Gabapentin [Neurontin] 300 mg PO BID 04/06/24 07/22/24 History Losartan/Hydrochlorothiazide 1 tab PO AC-BRKFST 04/06/24 07/22/24 History [Losartan-Hctz 100-25 mg Tab] Potassium Chloride [Potassium 10 meq PO BID 04/06/24 07/22/24 History Chloride ER (K-Dur GEQ)] Rosuvastatin Calcium 20 mg PO DAILY 04/06/24 07/22/24 History acetaZOLAMIDE [Diamox Sequels] 500 mg PO BID 04/06/24 07/22/24 History Cabergoline 0.5 mg PO MOFR 07/22/24 07/22/24 History glipiZIDE XL [Glucotrol Xl] 10 mg PO DAILY 07/22/24 07/22/24 History Allergies Allergy/AdvReac Type Severity Reaction Status Date / Time No Known Allergies Allergy Verified 07/22/24 13:51 Physical Examination - Vital Signs Vital Signs: Vital Signs Temp Pulse Pulse Resp BP BP Pulse Ox 07/23/24 14:30 99.1 F 98 16 137/80 97 07/23/24 07:00 98.6 F 94 16 133/82 95 07/23/24 01:59 99.4 F 93 18 120/73 98 07/22/24 20:48 98.4 F 87 18 97/64 98 07/22/24 20:22 84 18 127/82 96 Intake and Output 07/23/24 07/23/24 07/23/24 06:59 14:59 22:59 Intake Total 118 118 Balance 118 118 Intake: Oral 118 118 Other: Voiding Method Urinal Diaper # Voids 2 3 # Bowel Movements 1 Patient is an elderly Afro-[place]ian male, very pleasant, in no acute distress. Patient is alert awake oriented to time place and person. Speech and language functions are normal. Patient can name and repeat very well. No aphasia or dysarthria. Attention, concentration and fund of knowledge is adequate. On cranial nerve examination, pupils are equal, round and reacting to light, visual christianson are full on confrontation, with no neglect on double simultaneous stimulation. Extraocular muscles are intact with no nystagmus. Face is symmetric, tongue protrudes to the midline. Palatal elevation and sensation normal, hearing and shoulder shrug normal, facial sensation normal. On muscle strength testing, there is no pronator drift, although he can bring his right arm all the way up because of recent shoulder dislocation. The strength is normal in the left arm and left leg distally and proximally. In the right upper limb, deltoid is about 2+3-, biceps 5-, triceps 5, stake driver 4, wrist extension 2. In the right lower limb, his hip flexion is about 5-, ankle dorsiflexion 5. Deep tendon reflexes are asymmetric (right/left) biceps trace/2, brachioradialis trace/1+, knees 0/1+, ankles trace/trace and plantars downgoing bilaterally. Patient has previous right knee surgery. Sensory to touch is equal with no neglect on double simultaneous stimulation. Cerebellar function showed no ataxia for [id number] testing. No ataxia for [id number] testing on either side. Tone and bulk of muscles normal. Gait deferred.. On general examination, there is no carotid bruit or murmur, S1-S2 audible. Chest is clear on consultation. Abdomen is soft nontender. No organomegaly, bowel sounds present. Peripheral pulses are present. No peripheral edema. Results - Laboratory Findings CBC and BMP: 07/23/24 08:18 07/23/24 08:18 Abnormal Lab Findings: Abnormal Labs 07/22/24 07/22/24 07/22/24 06:18 06:37 06:37 WBC 13.1 H RBC 3.85 L Hgb 10.2 L Hct 32.5 L MCH MCHC RDW Neutrophils # 10.6 H Crenated Cell Potassium 3.1 L Carbon Dioxide 20 L Glucose 246 H POC Glucose (mg/dL) Hemoglobin A1c Magnesium 1.5 L Total Bilirubin 2.0 H Urine Protein 1+ H Urine Blood Moderate H Urine Bacteria Rare H Urine Mucus Few H Influenza Type A (PCR) 07/22/24 07/22/24 07/22/24 06:37 06:37 16:35 WBC RBC Hgb Hct MCH MCHC RDW Neutrophils # Crenated Cell Potassium Carbon Dioxide Glucose POC Glucose (mg/dL) 199 H Hemoglobin A1c 6.4 H Magnesium Total Bilirubin Urine Protein Urine Blood Urine Bacteria Urine Mucus Influenza Type A (PCR) Detected A 07/22/24 07/23/24 07/23/24 20:46 05:45 08:18 WBC RBC 3.87 L Hgb 10.1 L Hct 33.5 L MCH 26.1 L MCHC 30.1 L RDW 14.9 H Neutrophils # Crenated Cell 2+ A Potassium Carbon Dioxide Glucose POC Glucose (mg/dL) 164 H 183 H Hemoglobin A1c Magnesium Total Bilirubin Urine Protein Urine Blood Urine Bacteria Urine Mucus Influenza Type A (PCR) 07/23/24 07/23/24 07/23/24 08:18 12:16 17:06 WBC RBC Hgb Hct MCH MCHC RDW Neutrophils # Crenated Cell Potassium Carbon Dioxide 19 L Glucose 211 H POC Glucose (mg/dL) 165 H 157 H Hemoglobin A1c Magnesium Total Bilirubin Urine Protein Urine Blood Urine Bacteria Urine Mucus Influenza Type A (PCR) Assessment and Plan Assessment: * 69-year-old male, otherwise healthy, developed some difficulty with walking, imbalance in the last 2 weeks, right arm weakness, and then fell off the bed to the right side not able to get up. EMS pulled him from that position. Patient had right shoulder dislocation. Examination reveals weakness in the right hand as well as right wrist drop. Cerebrovascular accident needs to be rule out, however differential also includes right brachial plexopathy. * Acute influenza A infection. * Diabetes * Hypertension * Hyperlipidemia * Chronic low back pain * Osteoarthritis * Obstructive sleep apnea * History of right knee surgery Plan: * MRI of the brain with and without contrast was attempted earlier but patient is severely claustrophobic. He did not receive any premedication prior to the MRI therefore was not able to be done. We will give patient Ativan 2 mg IV prior to his MRI. * May need MRI of the lumbar spine as well for chronic low back pain, rule out spinal stenosis. * Carotid Doppler revealed no evidence for hemodynamically significant stenosis. Antegrade flow in both vertebral arteries. * 2D echo revealed normal biventricular systolic function with LVEF 55 to 60%. Moderate concentric LVH. Normal left and right atrial size. No thrombus. No significant valvular abnormalities. * Hemoglobin A1c 6.4. Diabetes is well-controlled. * Lipid panel with cholesterol 109, LDL 47, HDL 37 and triglycerides 124 on 06/27/2024. No need to repeat. Patient on Crestor 20 mg at home. Currently started on Lipitor 40 mg. * B12 305, folate 8.5 on 11/11/2023. Needs B12 and folate replacement. TSH normal 1.020. * Orthopedic surgery on board for right shoulder dislocation * Patient started on aspirin 81 mg daily. * Patient also on azithromycin 500 mg and ceftriaxone and Tamiflu, as per IM. * DVT prophylaxis: Heparin 5000 units subcu every 8 hours * PT OT * Neurology will follow. Thank you for the consult. Time with Patient: Greater than 30
[2024-07-24 08:31] LABS: Basophils # (A) 0.03 X 10*3/uL (0.00-0.10); Basophils % (A) 0.6 %; Eosinophils # (A) 0.09 X 10*3/uL (0.04-0.35); Eosinophils % (A) 1.9 %; HCT 30.9 % (39.6-50.0); HGB 9.7 g/dL (13.0-17.0); Lymphocytes # (A) 2.07 X 10*3/uL (0.90-5.00); MCH 26.7 pg (27.0-32.0); MCHC 31.4 g/dL (32.0-37.0); MCV 85.1 FL (80.0-97.0); Mean Platelet Volume 11.6 FL (9.5-12.2); Monocytes # (A) 0.28 X 10*3/uL (0.20-1.00); NRBC Per 100 WBC 0 X 10*3/uL (0.00-0.01); Neutrophils # (A) 2.22 X 10*3/uL (1.80-7.70); Neutrophils % (A) 47.3 %; Platelet Count 275 X 10*3/uL (140-440); RBC 3.63 X 10*6/uL (4.40-5.60); RDW 14.9 % (11.5-14.5)
--- NOTE | 2024-07-24 08:46 | P.PN ---
Subjective Progress Note Date: 07/24/24 Principal diagnosis: S/p right shoulder dislocation Camilo is seen on consult with history of a fall out of bed, landing directly on the right shoulder yesterday. His called EMS for transportation. The patient has been ill with influenza A and was significantly weak. He was attempting to get out of bed and fell and landed on his right shoulder. He had immediate right shoulder pain. On exam and x-ray in the emergency department he was found to have a dislocated right glenohumeral joint. The dislocation was reduced by the emergency department. He was placed in a sling. He is currently not wearing the sling. We are consulted for orthopedic evaluation. 07/24/2024: He states his shoulder pain is improving. He is moving his hand better today. No new complaints. Objective - Vital Signs Vital signs: Vital Signs Temp 98.8 F 07/24/24 02:39 Pulse 91 07/24/24 02:39 Resp 15 07/24/24 02:39 BP 126/69 07/24/24 02:39 Pulse Ox 97 07/24/24 02:39 FiO2 Intake & Output 07/23/24 07/24/24 07/24/24 18:59 06:59 18:59 Intake Total 236 Balance 236 Intake: Oral 236 Other: Voiding Method Urinal Urinal Diaper Diaper # Voids 3 1 # Bowel Movements 1 - Exam There is minimal soft tissue swelling noted to the shoulder. His arm is resting at his side. He has full wrist and finger motion without difficulty or pain. Neurovascular status to the upper extremity is grossly intact. - Labs CBC & Chem 7: 07/24/24 05:24 07/24/24 05:24 Labs: Abnormal Lab Results - Last 24 Hours (Table) 07/22/24 07/23/24 07/23/24 Range/Units 06:37 08:18 08:18 RBC 3.87 L (4.40-5.60) X 10*6/uL Hgb 10.1 L (13.0-17.0) g/dL Hct 33.5 L (39.6-50.0) % MCH 26.1 L (27.0-32.0) pg MCHC 30.1 L (32.0-37.0) g/dL RDW 14.9 H (11.5-14.5) % Crenated Cell 2+ A (None Seen) Carbon Dioxide 19 L (22-30) mmol/L Glucose 211 H (74-99) mg/dL POC Glucose (mg/dL) (70-110) mg/dL Hemoglobin A1c 6.4 H (<=6.0) % 07/23/24 07/23/24 07/23/24 Range/Units 12:16 17:06 20:51 RBC (4.40-5.60) X 10*6/uL Hgb (13.0-17.0) g/dL Hct (39.6-50.0) % MCH (27.0-32.0) pg MCHC (32.0-37.0) g/dL RDW (11.5-14.5) % Crenated Cell (None Seen) Carbon Dioxide (22-30) mmol/L Glucose (74-99) mg/dL POC Glucose (mg/dL) 165 H 157 H 169 H (70-110) mg/dL Hemoglobin A1c (<=6.0) % 07/24/24 07/24/24 Range/Units 05:24 05:59 RBC 3.63 L (4.40-5.60) X 10*6/uL Hgb 9.7 L (13.0-17.0) g/dL Hct 30.9 L (39.6-50.0) % MCH 26.7 L (27.0-32.0) pg MCHC 31.4 L (32.0-37.0) g/dL RDW 14.9 H (11.5-14.5) % Crenated Cell (None Seen) Carbon Dioxide (22-30) mmol/L Glucose (74-99) mg/dL POC Glucose (mg/dL) 215 H (70-110) mg/dL Hemoglobin A1c (<=6.0) % Assessment and Plan (1) Shoulder dislocation Current Visit: Yes Status: Acute Code(s): S43.006A - UNSP DISLOCATION OF UNSPECIFIED SHOULDER JOINT, INIT ENCNTR SNOMED Code(s): 815999623 Plan: The clinical and CT findings were discussed with the patient today. No fractures seen on CT. He will continue in arm sling. Continue pain control. He was encou raged to rest the shoulder and not try any range of motion at this time but can move his elbow, wrist, and hand as tolerated. The patient will follow up in our office in 2 weeks then start physical therapy at that time most likely. He is orthopedically stable for discharge from our standpoint.
[2024-07-24 09:08] LABS: ALT 39 U/L (10-49); AST 71 U/L (14-35); Albumin 3.8 g/dL (3.8-4.9); Albumin/Globulin Ratio 1.12 Ratio (1.60-3.17); Alkaline Phosphatase 63 U/L (41-126); BUN/Creat Ratio 13.88 Ratio (12.00-20.00); Blood Urea Nitrogen 11.1 mg/dL (9.0-27.0); Calcium 8.7 mg/dL (8.7-10.3); Carbon Dioxide 19.3 mmol/L (21.6-31.8); Chloride 109 mmol/L (96-109); Globulin 3.4 g/dL (1.6-3.3); Glucose 212 mg/dL (70-110); Magnesium 1.9 mg/dL (1.5-2.4); Potassium 3.6 mmol/L (3.5-5.5); Sodium 142 mmol/L (135-145); Total Bilirubin 0.9 mg/dL (0.3-1.2); Total Protein 7.2 g/dL (6.2-8.2)
[2024-07-24] MEDS: LORazepam 2 MG/ML INJ IV PRN (09:31)
--- NOTE | 2024-07-24 11:14 | MR ---
EXAMINATION TYPE: MR brain wo/w con DATE OF EXAM: 07/24/2024 10:42 AM COMPARISON: CT brain 07/23/2024 CLINICAL INDICATION: Male, 69 years old with history of CVA, weakness, ams TECHNIQUE: Multiplanar, multiecho imaging on a 3.0 [place] magnet is performed through the brain. Stud y is performed within 24 hours of arrival to the hospital.Multiplanar, multiecho imaging on a 3.0 Nelli la magnet is performed through the knee. IV Contrast: 14.5 mL Gadobutrol (None, if empty) FINDINGS: The craniovertebral junction is normal. The pituitary is normal. Diffusion-weighted imaging is performed. No abnormal hyperintensity is present to suggest an acute i ntracranial infarct or acute ischemic change. There are multiple scattered punctate areas of hyperintensity on T2 and Inversion Recovery weighted s equences scattered within the deep white matter and subcortical white matter which are non-specific b ut can be related to microvascular ischemic changes. Ventricles and sulci are appropriate for the patient age. No abnormal enhancement is evident. IMPRESSION: 1. Multiple subtle tiny punctate areas of hyperintensity within deep white matter are nonspecific but can be related to microvascular ischemic change. 2. No acute ischemic areas identified. [facility], , 07/24/2024 11:11 AM
[2024-07-24 12:46] LABS: Glucose,Whole Blood 178 mg/dL (70-110)
[2024-07-24 15:51] VITALS: BMI 42.5
[2024-07-24 18:26] LABS: Glucose,Whole Blood 149 mg/dL (70-110)
[2024-07-24 21:14] LABS: Glucose,Whole Blood 181 mg/dL (70-110)
[2024-07-25 05:44] LABS: Glucose,Whole Blood 177 mg/dL (70-110)
[2024-07-25 06:53] LABS: ALT 38 U/L (4-49); AST 54 U/L (17-59); African American GFR (CKD) >90 (>60 ml/min/1.73 sqM); Albumin 3.5 g/dL (3.5-5.0); Albumin/Globulin Ratio 1.1; Alkaline Phosphatase 62 U/L (38-126); Anion Gap 13 mmol/L; Blood Urea Nitrogen 10 mg/dL (9-20); Calcium 9.1 mg/dL (8.4-10.2); Carbon Dioxide 18 mmol/L (22-30); Chloride 110 mmol/L (98-107); Globulin 3.3 g/dL; Glucose 169 mg/dL (74-99); Non-African American GFR(CKD) >90 (>60 ml/min/1.73 sqM); Sodium 141 mmol/L (137-145); Total Protein 6.8 g/dL (6.3-8.2)
[2024-07-25 08:48] LABS: Basophils # (A) 0.03 X 10*3/uL (0.00-0.10); Basophils % (A) 0.5 %; Eosinophils # (A) 0.11 X 10*3/uL (0.04-0.35); Eosinophils % (A) 1.9 %; HCT 31.6 % (39.6-50.0); HGB 9.6 g/dL (13.0-17.0); Lymphocytes # (A) 2.21 X 10*3/uL (0.90-5.00); MCH 26.6 pg (27.0-32.0); MCHC 30.4 g/dL (32.0-37.0); MCV 87.5 FL (80.0-97.0); Mean Platelet Volume 11.7 FL (9.5-12.2); Monocytes # (A) 0.23 X 10*3/uL (0.20-1.00); NRBC Per 100 WBC 0 X 10*3/uL (0.00-0.01); Neutrophils # (A) 3.23 X 10*3/uL (1.80-7.70); Neutrophils % (A) 55.4 %; Platelet Count 264 X 10*3/uL (140-440); RBC 3.61 X 10*6/uL (4.40-5.60); RDW 15.1 % (11.5-14.5); WBC 5.82 X 10*3/uL (4.50-10.00)
[2024-07-25 11:58] LABS: Glucose,Whole Blood 167 mg/dL (70-110)
--- NOTE | 2024-07-25 12:31 | P.PN ---
Subjective Progress Note Date: 07/24/24 Patient was seen for a follow-up. Patient is sitting comfortably in the recliner, having his dinner. States his right arm feels slightly better. No new concerns. Patient denies any neck pain. He had some shoulder pain earlier today but is gone. Objective - Vital Signs Vital signs: Vital Signs Temp 98.1 F 07/24/24 15:00 Pulse 88 07/24/24 15:00 Resp 16 07/24/24 15:00 BP 106/51 07/24/24 15:00 Pulse Ox 98 07/24/24 15:00 FiO2 Intake & Output 07/23/24 07/24/24 07/24/24 18:59 06:59 18:59 Intake Total 236 Balance 236 Weight 142.428 kg Intake: Oral 236 Other: Voiding Method Urinal Urinal Toilet Diaper Diaper Urinal # Voids 3 1 3 # Bowel Movements 1 - Exam Examination reveals normal mental status, cranial nerves. On muscle strength testing, the strength is normal in the left arm and left leg. In the right upper limb, his right wrist extension is 3, finger extension 3+, which is improved as compared to yesterday. Still weak in the biceps 4+5-, triceps is normal. Deltoid is weak. Ankle dorsiflexion normal. - Labs CBC & Chem 7: 07/25/24 04:59 07/25/24 04:59 Labs: Abnormal Lab Results - Last 24 Hours (Table) 07/23/24 07/24/24 07/24/24 Range/Units 20:51 05:24 05:24 RBC 3.63 L (4.40-5.60) X 10*6/uL Hgb 9.7 L (13.0-17.0) g/dL Hct 30.9 L (39.6-50.0) % MCH 26.7 L (27.0-32.0) pg MCHC 31.4 L (32.0-37.0) g/dL RDW 14.9 H (11.5-14.5) % Carbon Dioxide 19.3 L (21.6-31.8) mmol/L Anion Gap 13.70 H (4.00-12.00) mmol/L Glucose 212 H (70-110) mg/dL POC Glucose (mg/dL) 169 H (70-110) mg/dL AST 71 H (14-35) U/L Globulin 3.4 H (1.6-3.3) g/dL Albumin/Globulin Ratio 1.12 L (1.60-3.17) Ratio 07/24/24 07/24/24 Range/Units 05:59 12:45 RBC (4.40-5.60) X 10*6/uL Hgb (13.0-17.0) g/dL Hct (39.6-50.0) % MCH (27.0-32.0) pg MCHC (32.0-37.0) g/dL RDW (11.5-14.5) % Carbon Dioxide (21.6-31.8) mmol/L Anion Gap (4.00-12.00) mmol/L Glucose (70-110) mg/dL POC Glucose (mg/dL) 215 H 178 H (70-110) mg/dL AST (14-35) U/L Globulin (1.6-3.3) g/dL Albumin/Globulin Ratio (1.60-3.17) Ratio Assessment and Plan Assessment: * 69-year-old male, otherwise healthy, developed some difficulty with walking, imbalance in the last 2 weeks, right arm weakness, and then fell off the bed to the right side not able to get up. EMS pulled him from that position. Patient had right shoulder dislocation. Examination reveals weakness in the right hand as well as right wrist drop. Acute CVA ruled out. Possible brachial plexopathy. * Acute influenza A infection. * Diabetes * Hypertension * Hyperlipidemia * Chronic low back pain * Osteoarthritis * Obstructive sleep apnea * History of right knee surgery Plan: * MRI of the brain with and without contrast revealed multiple subtle tiny punctate areas of hyperintensity within the deep white matter are nonspecific but can be related to microvascular ischemic change. No acute ischemic areas identified. I personally reviewed MRI, agree with the findings. No evidence of acute ischemic stroke. * I discussed with patient about an MRI of the brachial plexus, but he declined. He believes his right upper extremity is getting better. * Carotid Doppler revealed no evidence for hemodynamically significant stenosis. Antegrade flow in both vertebral arteries. * 2D echo revealed normal biventricular systolic function with LVEF 55 to 60%. Moderate concentric LVH. Normal left and right atrial size. No thrombus. No significant valvular abnormalities. * Hemoglobin A1c 6.4. Diabetes is well-controlled. * Lipid panel with cholesterol 109, LDL 47, HDL 37 and triglycerides 124 on 06/27/2024. No need to repeat. Patient on Crestor 20 mg at home. Currently started on Lipitor 40 mg. * B12 305, folate 8.5 on 11/11/2023. Needs B12 and folate replacement. TSH normal 1.020. * Orthopedic surgery on board for right shoulder dislocation * Patient started on aspirin 81 mg daily. * Patient also on azithromycin 500 mg and ceftriaxone and Tamiflu, as per IM. * DVT prophylaxis: Heparin 5000 units subcu every 8 hours * PT OT * Recommend patient undergo EMG and nerve conduction studies of right upper extremities as an outpatient. Recommend follow-up with neurologist.
[2024-07-25] MEDS: CYANOCOBALAMIN 1,000 MCG/ML 1 ML VIAL IM ONE (13:16)
[2024-07-25] MEDS: FOLIC ACID 1 MG TAB PO SCH (13:17)
[2024-07-25 17:23] LABS: Glucose,Whole Blood 153 mg/dL (70-110)
[2024-07-25 19:38] LABS: Glucose,Whole Blood 158 mg/dL (70-110)
[2024-07-26 06:14] LABS: Glucose,Whole Blood 167 mg/dL (70-110)
--- NOTE | 2024-07-26 06:15 | P.PN ---
Subjective Progress Note Date: 07/24/24 HISTORY OF PRESENT ILLNESS: This is a 69-year-old -[place] gentleman with a previous medical history significant for hypertension and hypertensive cardiovascular disease, hyperlipidemia, diabetes mellitus type 2, history of pituitary adenoma currently on cabergoline 0.5 mg Tuesday and Tuesday, detrusor instability, enlarged prostate, allergic rhinitis, diabetic neuropathy, glaucoma, patient presented to the emergency department at [facility] yesterday with generalized weakness and not able to get out of the bed, apparently he rolled out of the bed and landed on the floor, he dislocated his shoulder, status post duction under sedation in the ER patient was found to have influenza A, he has a chest x-ray did not show evidence of acute abnormalities, patient was extremely weak was not able to get up and move around, therefore the patient was admitted to the hospital for evaluation by physical therapy and Occupational Therapy, he was started IV antibiotic empirically, and I started the patient on oseltamavir 75 mg orally twice every day for the next 5 days. 07/23: Patient is laying down in bed in no apparent distress, he continues to be generally weak, he denies any chest pain, or shortness of breath, he has no abdominal pain, nausea vomiting or diarrhea, patient will be seen in consultation by physical therapy occupational therapy and will likely require some sort of subacute rehabilitation, patient does appear to have significant weakness in the right upper extremity, CT scan of the right shoulder was obtained by orthopedic surgery, I will obtain CT scan of the brain without contrast and MRI of the brain with and without sheryl, ultrasound of the carotid echocardiogram for evaluation aspirin statin neurology consultation rule out any CVA. 07/24: Patient is sitting up in the recliner chair he is doing a bit better, he is working with physical therapy and Occupational Therapy, he is using a walker for ambulation, he denies any chest pain at this time, he has no shortness of breath at this point, he did have a CT scan of the brain did not show evidence of acute abnormalities, MRI of the brain did not show evidence of small vessel disease without acute abnormalities, ultrasound the carotid was with no significant stenosis and echocardiogram was okay as well, patient will continue to work with physical therapy occupational therapy continue IV antibiotic with ceftriaxone and Zithromax, continue Tamiflu as well, will continue to follow with the patient very closely REVIEW OF SYSTEMS: Constitutional: Positive for documented fever, no chills, no night sweats. No weight change. No weakness, fatigue or lethargy. No daytime sleepiness. EENT: No headache. No blurred vision or double vision, no loss of vision. No loss of Hearing, no ringing in the ears, no dizziness. No nasal drainage or congestion. No epistaxis. No sore throat. Lungs: No shortness of breath, occasional cough, no sputum production. No wheezing. Reports dyspnea with activity. Cardiovascular: No chest pain, no lower extremity edema. No palpitations. No paroxysmal nocturnal dyspnea. No orthopnea. No lightheadedness or dizziness. No syncopal episodes. Abdominal: Reports no abdominal pain. No nausea, vomiting. No diarrhea. No constipation. No bloody or tarry stools reports loss of appetite. Genitourinary: No dysuria, increased frequency, urgency. No urinary retention. Musculoskeletal: No myalgias. positive for muscle weakness right upper extremity, positive for gait dysfunction, no frequent falls. No back pain. No neck pain. Integumentary: No wounds, no lesions. No rash or pruritus. No unusual bruising. No change in hair or nails. Neurologic: No aphasia. No facial droop. No change in mentation. No head injury. No headache. No paralysis. No paresthesia. Psychiatric: No depression. No anxiety. No mood swings. Endocrine: No abnormal blood sugars. No weight change. PHYSICAL EXAMINATION: General: 69-year-old -[place] gentleman lying down in bed in no distress. HEENT: Head is atraumatic, normocephalic, pupils were equal round reactive to light and recommendation, extraocular muscle movement were intact, sclera nonicteric, conjunctivae were pale, mucous membranes of the mouth are somewhat dry. Neck: Supple, no JVP, normal carotid upstroke bilaterally, no lymphadenopathy. Chest: Decreased breath sounds at the bases, few rhonchi, no expiratory wheezes, no chest wall tenderness, no intercostal retractions. Heart: First heart sound is normal, second heart sounds normal, there is systolic ejection murmur 2 over systolic in the left sternal border. Abdomen: Soft, nontender, nondistended, positive bowel sounds. Extremities: There is no edema no calf tenderness DP +2 bilaterally. Neurologic examination: Patient is awake alert and oriented x3, cranial nerves II-12 appear grossly intact, muscle power were 2 out of 5 in right upper extremity and 4 out of 5 in left upper extremity and 4 out of 5 in bilateral lower extremities, deep tendon reflexes normal bilaterally. ASSESSMENT AND PLAN: 1. Acute influenza A with SIRS and possible acute bronchitis. Discontinue IV fluid, continue patient on Zithromax, continue Rocephin, continue Tamiflu 75 mg orally twice a day for total of 5 days. 2. Severe hypokalemia and hypomagnesemia status post replacement. 3. Generalized weakness and inability to ambulate with recurrent falls. Physical therapy and Occupational Therapy evaluation follow-up with the patient very closely. Likely will require home PT. 4. Right shoulder dislocation status post reduction with orthopedic consultation ordered CT scan of the shoulder that was negative for any fracture continue to put the patient arm in the sling orthopedic consultation appreciated 5. Right upper extremity weakness likely due to shoulder dislocation and reduction continue the sling, MRI of the brain did not show evidence of acute abnormalities, stroke workup was previous negative including ultrasound of the carotid echocardiogram MRI and CT scan of the brain neurology consultation appreciated 6. Hypertension and hypertensive cardiovascular disease . Start the patient back on losartan 25 mg orally once every day. 7. Leukocytosis likely due to sepsis due to influenza A. Possible bronchitis. Continue IV antibiotic as well as Tamiflu. 8. Mixed hyperlipidemia continue rosuvastatin 20 mg once every day, monitor patient lipid panel, keep LDL 55-70. 9. Diabetes mellitus type 2. Resume the patient on glipizide 10 mg orally once every day, along with a sliding scale insulin. 10. History of pituitary adenoma continue cabergoline 0.5 mg orally Tuesday and Tuesday. 11. detrusor instability. Stable at this time. Hold off Detrol LA. 12. DVT prophylaxis. Continue patient on heparin 5000 units subcutaneously every 8 hours. 13. GI prophylaxis. Continue Protonix 40 mg orally once every day. 14. Patient is full code. 15. Likely will require home PT. Objective - Vital Signs Vital signs: Vital Signs Temp 98.1 F 07/24/24 07:55 Pulse 78 07/24/24 07:55 Resp 16 07/24/24 07:55 BP 129/75 07/24/24 07:55 Pulse Ox 99 07/24/24 07:55 FiO2 Intake & Output 07/23/24 07/24/24 07/24/24 18:59 06:59 18:59 Intake Total 236 Balance 236 Intake: Oral 236 Other: Voiding Method Urinal Urinal Toilet Diaper Diaper Urinal # Voids 3 1 # Bowel Movements 1 - Labs CBC & Chem 7: 07/25/24 04:59 07/25/24 04:59 Labs: Abnormal Lab Results - Last 24 Hours (Table) 07/23/24 07/23/24 07/24/24 Range/Units 17:06 20:51 05:24 RBC 3.63 L (4.40-5.60) X 10*6/uL Hgb 9.7 L (13.0-17.0) g/dL Hct 30.9 L (39.6-50.0) % MCH 26.7 L (27.0-32.0) pg MCHC 31.4 L (32.0-37.0) g/dL RDW 14.9 H (11.5-14.5) % Carbon Dioxide (21.6-31.8) mmol/L Anion Gap (4.00-12.00) mmol/L Glucose (70-110) mg/dL POC Glucose (mg/dL) 157 H 169 H (70-110) mg/dL AST (14-35) U/L Globulin (1.6-3.3) g/dL Albumin/Globulin Ratio (1.60-3.17) Ratio 07/24/24 07/24/24 Range/Units 05:24 05:59 RBC (4.40-5.60) X 10*6/uL Hgb (13.0-17.0) g/dL Hct (39.6-50.0) % MCH (27.0-32.0) pg MCHC (32.0-37.0) g/dL RDW (11.5-14.5) % Carbon Dioxide 19.3 L (21.6-31.8) mmol/L Anion Gap 13.70 H (4.00-12.00) mmol/L Glucose 212 H (70-110) mg/dL POC Glucose (mg/dL) 215 H (70-110) mg/dL AST 71 H (14-35) U/L Globulin 3.4 H (1.6-3.3) g/dL Albumin/Globulin Ratio 1.12 L (1.60-3.17) Ratio
--- NOTE | 2024-07-26 06:16 | P.PN ---
Subjective Progress Note Date: 07/25/24 HISTORY OF PRESENT ILLNESS: This is a 69-year-old -[place] gentleman with a previous medical history significant for hypertension and hypertensive cardiovascular disease, hyperlipidemia, diabetes mellitus type 2, history of pituitary adenoma currently on cabergoline 0.5 mg Tuesday and Tuesday, detrusor instability, enlarged prostate, allergic rhinitis, diabetic neuropathy, glaucoma, patient presented to the emergency department at [facility] yesterday with generalized weakness and not able to get out of the bed, apparently he rolled out of the bed and landed on the floor, he dislocated his shoulder, status post duction under sedation in the ER patient was found to have influenza A, he has a chest x-ray did not show evidence of acute abnormalities, patient was extremely weak was not able to get up and move around, therefore the patient was admitted to the hospital for evaluation by physical therapy and Occupational Therapy, he was started IV antibiotic empirically, and I started the patient on oseltamavir 75 mg orally twice every day for the next 5 days. 07/23: Patient is laying down in bed in no apparent distress, he continues to be generally weak, he denies any chest pain, or shortness of breath, he has no abdominal pain, nausea vomiting or diarrhea, patient will be seen in consultation by physical therapy occupational therapy and will likely require some sort of subacute rehabilitation, patient does appear to have significant weakness in the right upper extremity, CT scan of the right shoulder was obtained by orthopedic surgery, I will obtain CT scan of the brain without contrast and MRI of the brain with and without sheryl, ultrasound of the carotid echocardiogram for evaluation aspirin statin neurology consultation rule out any CVA. 07/24: Patient is sitting up in the recliner chair he is doing a bit better, he is working with physical therapy and Occupational Therapy, he is using a walker for ambulation, he denies any chest pain at this time, he has no shortness of breath at this point, he did have a CT scan of the brain did not show evidence of acute abnormalities, MRI of the brain did not show evidence of small vessel disease without acute abnormalities, ultrasound the carotid was with no significant stenosis and echocardiogram was okay as well, patient will continue to work with physical therapy occupational therapy continue IV antibiotic with ceftriaxone and Zithromax, continue Tamiflu as well, will continue to follow with the patient very closely 07/25: Was not able to sleep at night in his bed yesterday he slept the night on the recliner chair, because of possible underlying sleep apnea that the patient has not gone for sleep study for as an outpatient yet, continue to monitor the patient very closely, continue patient on current treatment plan with Tamiflu, continue IV antibiotic, continue to work with physical therapy and Occupational Therapy, patient at this point in time would likely be discharged home in the next 24 hours with home PT. Restart the patient on small dose of losartan 25 mg orally once every day REVIEW OF SYSTEMS: Constitutional: Positive for documented fever, no chills, no night sweats. No weight change. No weakness, fatigue or lethargy. No daytime sleepiness. EENT: No headache. No blurred vision or double vision, no loss of vision. No loss of Hearing, no ringing in the ears, no dizziness. No nasal drainage or congestion. No epistaxis. No sore throat. Lungs: No shortness of breath, occasional cough, no sputum production. No wheezing. Reports dyspnea with activity. Cardiovascular: No chest pain, no lower extremity edema. No palpitations. No paroxysmal nocturnal dyspnea. No orthopnea. No lightheadedness or dizziness. No syncopal episodes. Abdominal: Reports no abdominal pain. No nausea, vomiting. No diarrhea. No constipation. No bloody or tarry stools reports loss of appetite. Genitourinary: No dysuria, increased frequency, urgency. No urinary retention. Musculoskeletal: No myalgias. positive for muscle weakness right upper extremity, positive for gait dysfunction, no frequent falls. No back pain. No neck pain. Integumentary: No wounds, no lesions. No rash or pruritus. No unusual bruising. No change in hair or nails. Neurologic: No aphasia. No facial droop. No change in mentation. No head injury. No headache. No paralysis. No paresthesia. Psychiatric: No depression. No anxiety. No mood swings. Endocrine: No abnormal blood sugars. No weight change. PHYSICAL EXAMINATION: General: 69-year-old -[place] gentleman lying down in bed in no di stress. HEENT: Head is atraumatic, normocephalic, pupils were equal round reactive to light and recommendation, extraocular muscle movement were intact, sclera nonicteric, conjunctivae were pale, mucous membranes of the mouth are somewhat dry. Neck: Supple, no JVP, normal carotid upstroke bilaterally, no lymphadenopathy. Chest: Decreased breath sounds at the bases, few rhonchi, no expiratory wheezes, no chest wall tenderness, no intercostal retractions. Heart: First heart sound is normal, second heart sounds normal, there is systolic ejection murmur 2 over systolic in the left sternal border. Abdomen: Soft, nontender, nondistended, positive bowel sounds. Extremities: There is no edema no calf tenderness DP +2 bilaterally. Neurologic examination: Patient is awake alert and oriented x3, cranial nerves II-12 appear grossly intact, muscle power were 2 out of 5 in right upper extremity and 4 out of 5 in left upper extremity and 4 out of 5 in bilateral lower extremities, deep tendon reflexes normal bilaterally. ASSESSMENT AND PLAN: 1. Acute influenza A with SIRS and possible acute bronchitis. continue Tamiflu 75 mg orally twice a day for total of 5 days. 2. Severe hypokalemia and hypomagnesemia status post replacement. 3. Generalized weakness and inability to ambulate with recurrent falls. Physical therapy and Occupational Therapy evaluation follow-up with the patient very closely. Likely will require home PT. 4. Right shoulder dislocation status post reduction with orthopedic consultation ordered CT scan of the shoulder that was negative for any fracture continue to put the patient arm in the sling orthopedic consultation appreciated 5. Right upper extremity weakness likely due to shoulder dislocation and reduction continue the sling, MRI of the brain did not show evidence of acute abnormalities, stroke workup was previous negative including ultrasound of the carotid echocardiogram MRI and CT scan of the brain neurology consultation appreciated 6. Hypertension and hypertensive cardiovascular disease . Start the patient back on losartan 25 mg orally once every day. 7. Leukocytosis likely due to sepsis due to influenza A. Possible bronchitis. Continue IV antibiotic as well as Tamiflu. 8. Mixed hyperlipidemia continue rosuvastatin 20 mg once every day, monitor patient lipid panel, keep LDL 55-70. 9. Diabetes mellitus type 2. Resume the patient on glipizide 10 mg orally once every day, along with a sliding scale insulin. 10. History of pituitary adenoma continue cabergoline 0.5 mg orally Tuesday and Tuesday. 11. detrusor instability. Stable at this time. Hold off Detrol LA. 12. DVT prophylaxis. Continue patient on heparin 5000 units subcutaneously every 8 hours. 13. GI prophylaxis. Continue Protonix 40 mg orally once every day. 14. Patient is full code. 15. Likely will require home PT hopefully in the next 24 hours. Objective - Vital Signs Vital signs: Vital Signs Temp 97.8 F 07/26/24 02:00 Pulse 83 07/26/24 02:00 Resp 17 07/26/24 02:00 BP 111/65 07/26/24 02:00 Pulse Ox 96 07/26/24 02:00 FiO2 Intake & Output 07/25/24 07/25/24 07/26/24 06:59 18:59 06:59 Intake Total 339 Balance 339 Intake: Oral 339 Other: Voiding Method Toilet Toilet Toilet Urinal Urinal Urinal # Voids 1 3 1 - Labs CBC & Chem 7: 07/26/24 06:30 07/26/24 06:30 Labs: Abnormal Lab Results - Last 24 Hours (Table) 07/25/24 07/25/24 07/25/24 Range/Units 04:59 04:59 11:56 RBC 3.61 L (4.40-5.60) X 10*6/uL Hgb 9.6 L (13.0-17.0) g/dL Hct 31.6 L (39.6-50.0) % MCH 26.6 L (27.0-32.0) pg MCHC 30.4 L (32.0-37.0) g/dL RDW 15.1 H (11.5-14.5) % Chloride 110 H (98-107) mmol/L Carbon Dioxide 18 L (22-30) mmol/L Glucose 169 H (74-99) mg/dL POC Glucose (mg/dL) 167 H (70-110) mg/dL 07/25/24 07/25/24 07/26/24 Range/Units 17:21 19:28 06:12 RBC (4.40-5.60) X 10*6/uL Hgb (13.0-17.0) g/dL Hct (39.6-50.0) % MCH (27.0-32.0) pg MCHC (32.0-37.0) g/dL RDW (11.5-14.5) % Chloride (98-107) mmol/L Carbon Dioxide (22-30) mmol/L Glucose (74-99) mg/dL POC Glucose (mg/dL) 153 H 158 H 167 H (70-110) mg/dL
[2024-07-26 07:03] LABS: Basophils % (A) 1 %; Eosinophils # (A) 0.1 k/uL (0-0.7); Eosinophils % (A) 2 %; HCT 32.3 % (39.0-53.0); HGB 9.8 gm/dL (13.0-17.5); Hypochromasia Marked; Lymphocytes % (A) 36 %; MCH 26.4 pg (25.0-35.0); MCHC 30.2 g/dL (31.0-37.0); MCV 87.3 fL (80.0-100.0); Mean Platelet Volume 9.1; Monocytes # (A) 0.2 k/uL (0-1.0); Monocytes % (A) 3 %; Neutrophils % (A) 55 %; Platelet Count 252 k/uL (150-450); RDW 14.8 % (11.5-15.5); WBC 5.5 k/uL (3.8-10.6)
[2024-07-26 07:24] LABS: ALT 37 U/L (4-49); AST 44 U/L (17-59); African American GFR (CKD) >90 (>60 ml/min/1.73 sqM); Albumin 3.6 g/dL (3.5-5.0); Albumin/Globulin Ratio 1.1; Alkaline Phosphatase 57 U/L (38-126); Anion Gap 13 mmol/L; Blood Urea Nitrogen 10 mg/dL (9-20); Calcium 8.9 mg/dL (8.4-10.2); Carbon Dioxide 19 mmol/L (22-30); Chloride 110 mmol/L (98-107); Globulin 3.2 g/dL; Glucose 164 mg/dL (74-99); Non-African American GFR(CKD) >90 (>60 ml/min/1.73 sqM); Potassium 3.9 mmol/L (3.5-5.1); Sodium 142 mmol/L (137-145); Total Bilirubin 0.9 mg/dL (0.2-1.3); Total Protein 6.8 g/dL (6.3-8.2)
--- NOTE | 2024-07-26 07:54 | P.PN ---
Subjective Progress Note Date: 07/25/24 Patient was seen for a follow-up. Patient is sitting comfortably in the recliner. States his right arm feels slightly better. No new concerns. Patient denies any neck pain. Denies any pain. Objective - Vital Signs Vital signs: Vital Signs Temp 97.8 F 07/26/24 02:00 Pulse 83 07/26/24 02:00 Resp 17 07/26/24 02:00 BP 111/65 07/26/24 02:00 Pulse Ox 96 07/26/24 02:00 FiO2 Intake & Output 07/25/24 07/26/24 07/26/24 18:59 06:59 18:59 Intake Total 339 Balance 339 Intake: Oral 339 Other: Voiding Method Toilet Toilet Urinal Urinal # Voids 3 2 - Exam Examination reveals normal mental status, cranial nerves. On muscle strength testing, the strength is normal in the left arm and left leg. In the right upper limb, his right wrist extension is 4-, finger extension 4, which is improved as compared to yesterday, interossei 3+, triceps 5, biceps 5, deltoid 2, shoulder external rotators are weak. Ankle dorsiflexion normal. Deep tendon reflexes (right/left) biceps 0/2, brachioradialis 0/2, knees 0/2, ankles 1/trace. Patient has history of right knee surgery. Sensations are equal. - Labs CBC & Chem 7: 07/26/24 06:30 07/26/24 06:30 Labs: Abnormal Lab Results - Last 24 Hours (Table) 07/25/24 07/25/24 07/25/24 Range/Units 04:59 11:56 17:21 RBC 3.61 L (4.40-5.60) X 10*6/uL Hgb 9.6 L (13.0-17.0) g/dL Hct 31.6 L (39.6-50.0) % MCH 26.6 L (27.0-32.0) pg MCHC 30.4 L (32.0-37.0) g/dL RDW 15.1 H (11.5-14.5) % Chloride (98-107) mmol/L Carbon Dioxide (22-30) mmol/L Glucose (74-99) mg/dL POC Glucose (mg/dL) 167 H 153 H (70-110) mg/dL 07/25/24 07/26/24 07/26/24 Range/Units 19:28 06:12 06:30 RBC 3.70 L (4.40-5.60) X 10*6/uL Hgb 9.8 L (13.0-17.0) g/dL Hct 32.3 L (39.6-50.0) % MCH (27.0-32.0) pg MCHC 30.2 L (32.0-37.0) g/dL RDW (11.5-14.5) % Chloride (98-107) mmol/L Carbon Dioxide (22-30) mmol/L Glucose (74-99) mg/dL POC Glucose (mg/dL) 158 H 167 H (70-110) mg/dL 07/26/24 Range/Units 06:30 RBC (4.40-5.60) X 10*6/uL Hgb (13.0-17.0) g/dL Hct (39.6-50.0) % MCH (27.0-32.0) pg MCHC (32.0-37.0) g/dL RDW (11.5-14.5) % Chloride 110 H (98-107) mmol/L Carbon Dioxide 19 L (22-30) mmol/L Glucose 164 H (74-99) mg/dL POC Glucose (mg/dL) (70-110) mg/dL Assessment and Plan Assessment: * 69-year-old male, otherwise healthy, developed some difficulty with walking, imbalance in the last 2 weeks, right arm weakness, and then fell off the bed to the right side not able to get up. EMS pulled him from that position. Patient had right shoulder dislocation. Examination reveals weakness in the right hand as well as right wrist drop. Acute CVA ruled out. Probable brachial plexopathy. * Acute influenza A infection with SIRS. * Right shoulder dislocation, status postreduction * Diabetes * Hypertension * Hyperlipidemia * History of pituitary adenoma, on cabergoline * Chronic low back pain * Osteoarthritis * Obstructive sleep apnea * History of right knee surgery Plan: * MRI of the brain with and without contrast revealed multiple subtle tiny punctate areas of hyperintensity within the deep white matter are nonspecific but can be related to microvascular ischemic change. No acute ischemic areas identified. I personally reviewed MRI, agree with the findings. No evidence of acute ischemic stroke. * Patient probably has developed right brachial plexopathy, which uncertain his related to diabetes, or traumatic from falling and getting entrapped between the dresser and the wall, that led to shoulder dislocation. Patient's strength is improving in the right upper extremity on its own. Short course of steroids could be considered, although may affect his diabetes. Will discuss with the primary physician. * I had discussed with patient about an MRI of the brachial plexus, but he declined. He believes his right upper extremity is getting better. * Carotid Doppler revealed no evidence for hemodynamically significant stenosis. Antegrade flow in both vertebral arteries. * 2D echo revealed normal biventricular systolic function with LVEF 55 to 60%. Moderate concentric LVH. Normal left and right atrial size. No thrombus. No significant valvular abnormalities. * Hemoglobin A1c 6.4. Diabetes is well-controlled. * Lipid panel with cholesterol 109, LDL 47, HDL 37 and triglycerides 124 on 06/27/2024. No need to repeat. Patient on Crestor 20 mg at home. Currently started on Lipitor 40 mg. * B12 305, folate 8.5 on 11/11/2023. Needs B12 and folate replacement. TSH normal 1.020. * Orthopedic surgery on board for right shoulder dislocation * Patient started on aspirin 81 mg daily. * Patient also on ceftriaxone and Tamiflu, as per IM. * DVT prophylaxis: Heparin 5000 units subcu every 8 hours * PT OT * Recommend patient undergo EMG and nerve conduction studies of right upper extremities as an outpatient. Recommend follow-up with neurologist.
[2024-07-26] MEDS: CYANOCOBALAMIN 500 MCG TAB PO SCH (08:31)
[2024-07-26] MEDS: LOSARTAN 25 MG TAB PO SCH (08:31)
[2024-07-26 12:52] LABS: Glucose,Whole Blood 126 mg/dL (70-110)
[2024-07-26 17:46] LABS: Glucose,Whole Blood 138 mg/dL (70-110)
[2024-07-26 20:29] LABS: Glucose,Whole Blood 171 mg/dL (70-110)
--- NOTE | 2024-07-26 23:05 | P.PN ---
Subjective Progress Note Date: 07/26/24 Patient was seen for a follow-up. Patient is sitting comfortably in the recliner. States his right arm feels slightly better. No new concerns. Patient denies any neck pain. Denies any pain. Patient's was also present by the bedside. Objective - Vital Signs Vital signs: Vital Signs Temp 98.3 F 07/26/24 20:00 Pulse 74 07/26/24 20:00 Resp 17 07/26/24 20:00 BP 110/70 07/26/24 20:00 Pulse Ox 97 07/26/24 20:00 FiO2 Intake & Output 07/26/24 07/26/24 07/27/24 06:59 18:59 06:59 Intake Total 640 Balance 640 Intake: Intake, IV Titration 50 Amount cefTRIAXone 1 gm In 50 Sodium Chloride 0.9% 50 ml @ 100 mls/hr IVPB Q24HR GABE Rx#:[id number] Oral 590 Other: Voiding Method Toilet Toilet Urinal Urinal # Voids 2 2 - Exam Examination reveals normal mental status, cranial nerves. On muscle strength testing, the strength is normal in the left arm and left leg. In the right upper limb, his right wrist extension is 4+, finger extension 4 4- , interossei 3+, triceps 5, biceps 5, deltoid 2, shoulder external rotators are weak. Patient has significant weakness of the flexor digitorum profundus of the right fourth and fifth digits. Ankle dorsiflexion normal. Deep tendon reflexes (right/left) biceps 0/2, brachioradialis 0/2, knees 0/2, ankles 1/trace. Patient has history of right knee surgery. Sensations are equal. - Labs CBC & Chem 7: 07/26/24 06:30 07/26/24 06:30 Labs: Abnormal Lab Results - Last 24 Hours (Table) 07/26/24 07/26/24 07/26/24 Range/Units 06:12 06:30 06:30 RBC 3.70 L (4.30-5.90) m/uL Hgb 9.8 L (13.0-17.5) gm/dL Hct 32.3 L (39.0-53.0) % MCHC 30.2 L (31.0-37.0) g/dL Chloride 110 H (98-107) mmol/L Carbon Dioxide 19 L (22-30) mmol/L Glucose 164 H (74-99) mg/dL POC Glucose (mg/dL) 167 H (70-110) mg/dL 07/26/24 07/26/24 07/26/24 Range/Units 12:50 17:50 20:28 RBC (4.30-5.90) m/uL Hgb (13.0-17.5) gm/dL Hct (39.0-53.0) % MCHC (31.0-37.0) g/dL Chloride (98-107) mmol/L Carbon Dioxide (22-30) mmol/L Glucose (74-99) mg/dL POC Glucose (mg/dL) 126 H 138 H 171 H (70-110) mg/dL Assessment and Plan Assessment: * 69-year-old male, otherwise healthy, developed some difficulty with walking, imbalance in the last 2 weeks, right arm weakness, and then fell off the bed to the right side between the dresser in the wall, and not able to get up. EMS pulled him from that position. Patient had right shoulder dislocation. Examination reveals weakness in the right hand as well as right wrist drop. Acute CVA ruled out. Probable brachial plexopathy. * Acute influenza A infection with SIRS. * Right shoulder dislocation, status post-reduction * Diabetes * Hypertension * Hyperlipidemia * History of pituitary adenoma, on cabergoline * Chronic low back pain * Osteoarthritis * Obstructive sleep apnea * History of right knee surgery Plan: * MRI of the brain with and without contrast revealed multiple subtle tiny punctate areas of hyperintensity within the deep white matter are nonspecific but can be related to microvascular ischemic change. No acute ischemic areas identified. I personally reviewed MRI, agree with the findings. No evidence of acute ischemic stroke. * Patient probably has developed right brachial plexopathy, which uncertain his related to diabetes, or traumatic from falling and getting entrapped between the dresser and the wall, that led to shoulder dislocation. Patient's strength is improving in the right upper extremity on its own. Short course of steroids could be considered, although may affect his diabetes. Discussed with primary physician. * I had discussed with patient about an MRI of the brachial plexus, but he declined. He believes his right upper extremity is getting better. * Carotid Doppler revealed no evidence for hemodynamically significant stenosis. Antegrade flow in both vertebral arteries. * 2D echo revealed normal biventricular systolic function with LVEF 55 to 60%. Moderate concentric LVH. Normal left and right atrial size. No thrombus. No significant valvular abnormalities. * Hemoglobin A1c 6.4. Diabetes is well-controlled. * Lipid panel with cholesterol 109, LDL 47, HDL 37 and triglycerides 124 on 06/27/2024. No need to repeat. Patient on Crestor 20 mg at home. Currently started on Lipitor 40 mg. * B12 305, folate 8.5 on 11/11/2023. Needs B12 and folate replacement. TSH normal 1.020. * Orthopedic surgery on board for right shoulder dislocation * Patient started on aspirin 81 mg daily. * Patient also on ceftriaxone and Tamiflu, as per IM. * DVT prophylaxis: Heparin 5000 units subcu every 8 hours * PT OT * Recommend patient undergo EMG and nerve conduction studies of right upper extremities as an outpatient. Recommend follow-up with neurologist.
[2024-07-27 05:39] LABS: Glucose,Whole Blood 177 mg/dL (70-110)
--- NOTE | 2024-07-27 06:13 | P.PN ---
Subjective Progress Note Date: 07/26/24 HISTORY OF PRESENT ILLNESS: This is a 69-year-old -French gentleman with a previous medical history significant for hypertension and hypertensive cardiovascular disease, hyperlipidemia, diabetes mellitus type 2, history of pituitary adenoma currently on cabergoline 0.5 mg Tuesday and Tuesday, detrusor instability, enlarged prostate, allergic rhinitis, diabetic neuropathy, glaucoma, patient presented to the emergency department at [facility] yesterday with generalized weakness and not able to get out of the bed, apparently he rolled out of the bed and landed on the floor, he dislocated his shoulder, status post duction under sedation in the ER patient was found to have influenza A, he has a chest x-ray did not show evidence of acute abnormalities, patient was extremely weak was not able to get up and move around, therefore the patient was admitted to the hospital for evaluation by physical therapy and Occupational Therapy, he was started IV antibiotic empirically, and I started the patient on oseltamavir 75 mg orally twice every day for the next 5 days. 07/23: Patient is laying down in bed in no apparent distress, he continues to be generally weak, he denies any chest pain, or shortness of breath, he has no abdominal pain, nausea vomiting or diarrhea, patient will be seen in consultation by physical therapy occupational therapy and will likely require some sort of subacute rehabilitation, patient does appear to have significant weakness in the right upper extremity, CT scan of the right shoulder was obtained by orthopedic surgery, I will obtain CT scan of the brain without contrast and MRI of the brain with and without sheryl, ultrasound of the carotid echocardiogram for evaluation aspirin statin neurology consultation rule out any CVA. 07/24: Patient is sitting up in the recliner chair he is doing a bit better, he is working with physical therapy and Occupational Therapy, he is using a walker for ambulation, he denies any chest pain at this time, he has no shortness of breath at this point, he did have a CT scan of the brain did not show evidence of acute abnormalities, MRI of the brain did not show evidence of small vessel disease without acute abnormalities, ultrasound the carotid was with no significant stenosis and echocardiogram was okay as well, patient will continue to work with physical therapy occupational therapy continue IV antibiotic with ceftriaxone and Zithromax, continue Tamiflu as well, will continue to follow with the patient very closely 07/25: Was not able to sleep at night in his bed yesterday he slept the night on the recliner chair, because of possible underlying sleep apnea that the patient has not gone for sleep study for as an outpatient yet, continue to monitor the patient very closely, continue patient on current treatment plan with Tamiflu, continue IV antibiotic, continue to work with physical therapy and Occupational Therapy, patient at this point in time would likely be discharged home in the next 24 hours with home PT. Restart the patient on small dose of losartan 25 mg orally once every day 07/26: Patient is sitting up in the recliner chair, he denies any chest pain, or any shortness of breath, occasional cough, no phlegm production, he continues to be on ceftriaxone, will discontinue that tomorrow morning, patient was seen by neurology who recommended for the patient to go on prednisone for possible right brachial plexopathy due to recent fall and dislocation of the right shoulder, patient will be discharged home tomorrow morning with home physical therapy and Occupational Therapy he will have a walker, I will finish a course of Tamiflu for the patient to finish up 5-day course of that and we will switch the patient to oral antibiotic in the form of Zithromax 500 mg orally once every day for 3 days REVIEW OF SYSTEMS: Constitutional: Positive for documented fever, no chills, no night sweats. No weight change. No weakness, fatigue or lethargy. No daytime sleepiness. EENT: No headache. No blurred vision or double vision, no loss of vision. No loss of Hearing, no ringing in the ears, no dizziness. No nasal drainage or congestion. No epistaxis. No sore throat. Lungs: No shortness of breath, occasional cough, no sputum production. No wheezing. Reports dyspnea with activity. Cardiovascular: No chest pain, no lower extremity edema. No palpitations. No paroxysmal nocturnal dyspnea. No orthopnea. No lightheadedness or dizziness. No syncopal episodes. Abdominal: Reports no abdominal pain. No nausea, vomiting. No diarrhea. No constipation. No bloody or tarry stools reports loss of appetite. Genitourinary: No dysuria, increased frequency, urgency. No urinary retention. Musculoskeletal: No myalgias. positive for muscle weakness right upper extremity, positive for gait dysfunction, no frequent falls. No back pain. No neck pain. Integumentary: No wounds, no lesions. No rash or pruritus. No unusual bruising. No change in hair or nails. Neurologic: No aphasia. No facial droop. No change in mentation. No head injury. No headache.right upper extremity weakness( better) Psychiatric: No depression. No anxiety. No mood swings. Endocrine: No abnormal blood sugars. No weight change. PHYSICAL EXAMINATION: General: 69-year-old -French gentleman lying down in bed in no distress. HEENT: Head is atraumatic, normocephalic, pupils were equal round reactive to light and recommendation, extraocular muscle movement were intact, sclera nonicteric, conjunctivae were pale, mucous membranes of the mouth are somewhat dry. Neck: Supple, no JVP, normal carotid upstroke bilaterally, no lymphadenopathy. Chest: Decreased breath sounds at the bases, few rhonchi, no expiratory wheezes, no chest wall tenderness, no intercostal retractions. Heart: First heart sound is normal, second heart sounds normal, there is systolic ejection murmur 2 over systolic in the left sternal border. Abdomen: Soft, nontender, nondistended, positive bowel sounds. Extremities: There is no edema no calf tenderness DP +2 bilaterally. Neurologic examination: Patient is awake alert and oriented x3, cranial nerves II-12 appear grossly intact, muscle power were 2 out of 5 in right upper extremity and 4 out of 5 in left upper extremity and 4 out of 5 in bilateral lower extremities, deep tendon reflexes normal bilaterally. ASSESSMENT AND PLAN: 1. Acute influenza A with SIRS and possible acute bronchitis. continue Tamiflu 75 mg orally twice a day for total of 5 days and we will give Zithromax 500 mg po daily for 3 days, discontinue Rocephin in AM 2. Severe hypokalemia and hypomagnesemia status post replacement. 3. Generalized weakness and inability to ambulate with recurrent falls. Physical therapy and Occupational Therapy evaluation follow-up with the patient very closely. Likely will require home PT. 4. Right shoulder dislocation status post reduction with orthopedic consultation ordered CT scan of the shoulder that was negative for any fracture continue to put the patient arm in the sling orthopedic consultation appreciated 5. Right upper extremity weakness likely due to shoulder dislocation and reduction continue the sling, MRI of the brain did not show evidence of acute abnormalities, stroke workup was previous negative including ultrasound of the carotid echocardiogram MRI and CT scan of the brain neurology consultation appreciated likely right brachial plexopathy he will be sent home on Medrol Dosepak. 6. Hypertension and hypertensive cardiovascular disease . Start the patient back on losartan 25 mg orally once every day. 7. Leukocytosis likely due to sepsis due to influenza A. Possible bronchitis. Continue Tamiflu. 8. Mixed hyperlipidemia continue rosuvastatin 20 mg once every day, monitor patient lipid panel, keep LDL 55-70. 9. Diabetes mellitus type 2. Resume the patient on glipizide 10 mg orally once every day, along with a sliding scale insulin. 10. History of pituitary adenoma continue cabergoline 0.5 mg orally Tuesday and Tuesday. 11. detrusor instability. Stable at this time. Hold off Detrol LA. 12. DVT prophylaxis. Continue patient on heparin 5000 units subcutaneously every 8 hours. 13. GI prophylaxis. Continue Protonix 40 mg orally once every day. 14. Patient is full code. 15. Likely will require home PT hopefully in the next 24 hours. Objective - Vital Signs Vital signs: Vital Signs Temp 98.2 F 07/27/24 02:00 Pulse 75 07/27/24 02:00 Resp 17 07/27/24 02:00 BP 114/72 07/27/24 02:00 Pulse Ox 97 07/27/24 02:00 FiO2 Intake & Output 07/26/24 07/26/24 07/27/24 06:59 18:59 06:59 Intake Total 640 Balance 640 Intake: Intake, IV Titration 50 Amount cefTRIAXone 1 gm In 50 Sodium Chloride 0.9% 50 ml @ 100 mls/hr IVPB Q24HR [facility] Rx#:[id number] Oral 590 Other: Voiding Method Toilet Toilet Urinal Urinal # Voids 2 3 - Labs CBC & Chem 7: 07/26/24 06:30 07/26/24 06:30 Labs: Abnormal Lab Results - Last 24 Hours (Table) 07/26/24 07/26/24 07/26/24 Range/Units 06:12 06:30 06:30 RBC 3.70 L (4.30-5.90) m/uL Hgb 9.8 L (13.0-17.5) gm/dL Hct 32.3 L (39.0-53.0) % MCHC 30.2 L (31.0-37.0) g/dL Chloride 110 H (98-107) mmol/L Carbon Dioxide 19 L (22-30) mmol/L Glucose 164 H (74-99) mg/dL POC Glucose (mg/dL) 167 H (70-110) mg/dL 07/26/24 07/26/24 07/26/24 Range/Units 12:50 17:50 20:28 RBC (4.30-5.90) m/uL Hgb (13.0-17.5) gm/dL Hct (39.0-53.0) % MCHC (31.0-37.0) g/dL Chloride (98-107) mmol/L Carbon Dioxide (22-30) mmol/L Glucose (74-99) mg/dL POC Glucose (mg/dL) 126 H 138 H 171 H (70-110) mg/dL 07/27/24 Range/Units 05:37 RBC (4.30-5.90) m/uL Hgb (13.0-17.5) gm/dL Hct (39.0-53.0) % MCHC (31.0-37.0) g/dL Chloride (98-107) mmol/L Carbon Dioxide (22-30) mmol/L Glucose (74-99) mg/dL POC Glucose (mg/dL) 177 H (70-110) mg/dL
[2024-07-27 06:52] LABS: Basophils # (A) 0.1 k/uL (0-0.2); Basophils % (A) 1 %; Eosinophils # (A) 0.2 k/uL (0-0.7); Eosinophils % (A) 4 %; HCT 31.6 % (39.0-53.0); HGB 9.7 gm/dL (13.0-17.5); Hypochromasia Marked; Lymphocytes # (A) 2.1 k/uL (1.0-4.8); Lymphocytes % (A) 37 %; MCH 27.3 pg (25.0-35.0); MCHC 30.7 g/dL (31.0-37.0); MCV 88.7 fL (80.0-100.0); Mean Platelet Volume 8.2; Monocytes # (A) 0.2 k/uL (0-1.0); Monocytes % (A) 4 %; Neutrophils # (A) 2.9 k/uL (1.3-7.7); Neutrophils % (A) 52 %; Platelet Count 264 k/uL (150-450); RBC 3.56 m/uL (4.30-5.90); WBC 5.6 k/uL (3.8-10.6)
[2024-07-27 07:02] LABS: ALT 41 U/L (4-49); AST 40 U/L (17-59); African American GFR (CKD) >90 (>60 ml/min/1.73 sqM); Albumin 3.9 g/dL (3.5-5.0); Albumin/Globulin Ratio 1.1; Alkaline Phosphatase 57 U/L (38-126); Anion Gap 13 mmol/L; Blood Urea Nitrogen 11 mg/dL (9-20); Calcium 9.2 mg/dL (8.4-10.2); Carbon Dioxide 16 mmol/L (22-30); Chloride 112 mmol/L (98-107); Globulin 3.4 g/dL; Glucose 196 mg/dL (74-99); Non-African American GFR(CKD) >90 (>60 ml/min/1.73 sqM); Sodium 141 mmol/L (137-145); Total Protein 7.3 g/dL (6.3-8.2)
[2024-07-27 07:42] VITALS: BP 118/75; PULSE 63; RESP 16; TEMP 97.9
[2024-07-27] MEDS ORDERED: MEMANTINE 5 MG TAB PO SCH (12:15)
[2024-07-27 12:21] LABS: Glucose,Whole Blood 121 mg/dL (70-110)
--- NOTE | 2024-07-28 05:21 | P.DS ---
Providers Date of admission: 07/23/24 09:09 Expected date of discharge: 07/27/24 Attending physician: Yg Gibson Consults: 07/23/24 10:02 Consult Physician Routine Consulting Provider: Dwayne Oshea Consult Reason/Comments: CVA Do you want consulting provider notified?: Yes 07/23/24 10:10 Consult Physician Routine Consulting Provider: Ofelia Alatorre Consult Reason/Comments: dislocated shoulder reduced in ER Do you want consulting provider notified?: Yes Primary care physician: Yg Gibson Hospital Course: HISTORY OF PRESENT ILLNESS: This is a 69-year-old -[place] gentleman with a previous medical history significant for hypertension and hypertensive cardiovascular disease, hyperlipidemia, diabetes mellitus type 2, history of pituitary adenoma currently on cabergoline 0.5 mg Tuesday and Tuesday, detrusor instability, enlarged prostate, allergic rhinitis, diabetic neuropathy, glaucoma, patient presented to the emergency department at [facility] yesterday with generalized weakness and not able to get out of the bed, apparently he rolled out of the bed and landed on the floor, he dislocated his shoulder, status post duction under sedation in the ER patient was found to have influenza A, he has a chest x-ray did not show evidence of acute abnormalities, patient was extremely weak was not able to get up and move around, therefore the patient was admitted to the hospital for evaluation by physical therapy and Occupational Therapy, he was started IV antibiotic empirically, and I started the patient on oseltamavir 75 mg orally twice every day for the next 5 days. 07/23: Patient is laying down in bed in no apparent distress, he continues to be generally weak, he denies any chest pain, or shortness of breath, he has no abdominal pain, nausea vomiting or diarrhea, patient will be seen in consultation by physical therapy occupational therapy and will likely require some sort of subacute rehabilitation, patient does appear to have significant we akness in the right upper extremity, CT scan of the right shoulder was obtained by orthopedic surgery, I will obtain CT scan of the brain without contrast and MRI of the brain with and without sheryl, ultrasound of the carotid echocardiogram for evaluation aspirin statin neurology consultation rule out any CVA. 07/24: Patient is sitting up in the recliner chair he is doing a bit better, he is working with physical therapy and Occupational Therapy, he is using a walker for ambulation, he denies any chest pain at this time, he has no shortness of breath at this point, he did have a CT scan of the brain did not show evidence of acute abnormalities, MRI of the brain did not show evidence of small vessel disease without acute abnormalities, ultrasound the carotid was with no significant stenosis and echocardiogram was okay as well, patient will continue to work with physical therapy occupational therapy continue IV antibiotic with ceftriaxone and Zithromax, continue Tamiflu as well, will continue to follow with the patient very closely 07/25: Was not able to sleep at night in his bed yesterday he slept the night on the recliner chair, because of possible underlying sleep apnea that the patient has not gone for sleep study for as an outpatient yet, continue to monitor the patient very closely, continue patient on current treatment plan with Tamiflu, continue IV antibiotic, continue to work with physical therapy and Occupational Therapy, patient at this point in time would likely be discharged home in the next 24 hours with home PT. Restart the patient on small dose of losartan 25 mg orally once every day 07/26: Patient is sitting up in the recliner chair, he denies any chest pain, or any shortness of breath, occasional cough, no phlegm production, he continues to be on ceftriaxone, will discontinue that tomorrow morning, patient was seen by neurology who recommended for the patient to go on prednisone for possible right brachial plexopathy due to recent fall and dislocation of the right shoulder, patient will be discharged home tomorrow morning with home physical therapy and Occupational Therapy he will have a walker, I will finish a course of Tamiflu for the patient to finish up 5-day course of that and we will switch the patient to oral antibiotic in the form of Zithromax 500 mg orally once every day for 3 days 07/27: Is doing a lot better yesterday he was ready to get out of the hospital however he was kept on aspirin because did not get his walker yet, will try to plan for PT OT tomorrow morning, along with his walker, he can be discharged home and follow-up with me as an outpatient in 1 week. Patient is to continue Tamiflu to complete 5-day course, I will start the patient on Zithromax 500 mg once every day for 3 days, I will start the patient on Medrol Dosepak as well, follow-up with the patient very closely. Patient may have right brachial plexopathy according to neurology he may need to go for nerve conduction study/EMG as an outpatient for further evaluation recommendation, I will let him follow-up with neurologist as an outpatient. Discharge diagnoses: 1. Acute influenza A with SIRS and possible acute bronchitis. 2. Severe hypokalemia and hypomagnesemia status post replacement. 3. Generalized weakness and inability to ambulate with recurrent falls. 4. Right shoulder dislocation status post reduction with orthopedic consu ltation ordered CT scan of the shoulder that was negative for any fracture 5. Right upper extremity weakness likely due to shoulder dislocation and reduction continue the sling post right brachial plexopathy. 6. Hypertension and hypertensive cardiovascular disease . 7. Leukocytosis likely due to sepsis due to influenza A. 8. Mixed hyperlipidemia 9. Diabetes mellitus type 2. 10. History of pituitary adenoma 11. detrusor instability. 12. Low B12 and folic acid post replacement Patient Condition at Discharge: Fair Plan - Discharge Summary Discharge Rx Participant: No New Discharge Prescriptions: New Aspirin 81 mg PO DAILY #90 tab Losartan [Cozaar] 25 mg PO DAILY #90 tab Oseltamivir [Tamiflu] 75 mg PO Q12HR #2 cap Azithromycin [Zithromax Tri-Rishi (3 tabs)] 500 mg PO DAILY 3 Days #3 tab Folic Acid 1 mg PO DAILY #90 tab Cyanocobalamin [Vitamin B-12] 1,000 mcg PO DAILY #90 tab Latanoprost Ophth [Xalatan 0.005%] 1 drops LEFT EYE HS ml methylPREDNISolone Dose Pack [Medrol Dose Pack] 4 mg PO DIRECTED #1 packet Continue metFORMIN HCL [Glucophage] 1,000 mg PO BID Rosuvastatin Calcium 20 mg PO DAILY Potassium Chloride [Potassium Chloride ER (K-Dur GEQ)] 10 meq PO BID Cabergoline 0.5 mg PO MOFR acetaZOLAMIDE [Diamox Sequels] 500 mg PO BID Gabapentin [Neurontin] 300 mg PO BID glipiZIDE XL [Glucotrol XL] 10 mg PO DAILY Discontinued Losartan/Hydrochlorothiazide [Losartan-Hctz 100-25 mg Tab] 1 tab PO [id number]-[id number] Discharge Medication List metFORMIN HCL [Glucophage] 1,000 mg PO BID 03/01/17 [History] Gabapentin [Neurontin] 300 mg PO BID 04/06/24 [History] Potassium Chloride [Potassium Chloride ER (K-Dur GEQ)] 10 meq PO BID 04/06/24 [History] Rosuvastatin Calcium 20 mg PO DAILY 04/06/24 [History] acetaZOLAMIDE [Diamox Sequels] 500 mg PO BID 04/06/24 [History] Cabergoline 0.5 mg PO MOFR 07/22/24 [History] glipiZIDE XL [Glucotrol XL] 10 mg PO DAILY 07/22/24 [History] Aspirin 81 mg PO DAILY #90 tab 07/27/24 [Rx] Azithromycin [Zithromax Tri-Rishi (3 tabs)] 500 mg PO DAILY 3 Days #3 tab 07/27/24 [Rx] Cyanocobalamin [Vitamin B-12] 1,000 mcg PO DAILY #90 tab 07/27/24 [Rx] Folic Acid 1 mg PO DAILY #90 tab 07/27/24 [Rx] Latanoprost Ophth [Xalatan 0.005%] 1 drops LEFT EYE HS ml 07/27/24 [Rx] Losartan [Cozaar] 25 mg PO DAILY #90 tab 07/27/24 [Rx] Oseltamivir [Tamiflu] 75 mg PO Q12HR #2 cap 07/27/24 [Rx] methylPREDNISolone Dose Pack [Medrol Dose Pack] 4 mg PO DIRECTED #1 packet 07/27/24 [Rx] Follow up Appointment(s)/Referral(s): [facility], [NON-STAFF] - As Needed Yg Gibson MD [Primary Care Provider] - 1-2 days Ofelia Alatorre [Doctor of Osteopathic Medicine] - 08/10/24 9:00 am [facility] [NON-STAFF] - As Needed (WALKER) Patient Instructions/Handouts: Influenza (DC) Activity/Diet/Wound Care/Special Instructions: Keep arm in sling May move elbow, wrist, and hand. Follow up with Dr. Alatorre in 2 weeks. Discharge Disposition: HOME WITH HOME HEALTH SERVICES
--- NOTE | 2024-07-29 15:56 | P.PN ---
Subjective Progress Note Date: 07/27/24 Patient was seen for a follow-up. Patient is sitting comfortably in the recliner. Patient's is also present. Both of them believe that patient is getting better. No new concerns. Patient denies any neck pain. Denies any pain. Objective - Vital Signs Vital signs: Vital Signs Temp 97.9 F 07/27/24 07:00 Pulse 63 07/27/24 07:00 Resp 16 07/27/24 07:00 BP 118/75 07/27/24 07:00 Pulse Ox 97 07/27/24 07:00 FiO2 Intake & Output 07/26/24 07/27/24 07/27/24 18:59 06:59 18:59 Intake Total 640 Balance 640 Intake: Intake, IV Titration 50 Amount cefTRIAXone 1 gm In 50 Sodium Chloride 0.9% 50 ml @ 100 mls/hr IVPB Q24HR [facility] Rx#:[id number] Oral 590 Other: Voiding Method Toilet Urinal # Voids 3 - Exam Examination reveals normal mental status, cranial nerves. On muscle strength testing, the strength is normal in the left arm and left leg. In the right upper limb, his right wrist extension is 4+, finger extension 4+, triceps 5, biceps 5, deltoid 2+3-, shoulder external rotators are weak. Patient has significant weakness of the flexor digitorum profundus of the right fourth and fifth digits, but appears better than yesterday. Ankle dorsiflexion normal. Deep tendon reflexes (right/left) biceps 0/2, brachioradialis 0/2, knees 0/2, ankles 1/trace. Patient has history of right knee surgery. Sensations are equal. - Labs CBC & Chem 7: 07/27/24 06:30 07/27/24 06:30 Labs: Abnormal Lab Results - Last 24 Hours (Table) 07/26/24 07/26/24 07/26/24 Range/Units 12:50 17:50 20:28 RBC (4.30-5.90) m/uL Hgb (13.0-17.5) gm/dL Hct (39.0-53.0) % MCHC (31.0-37.0) g/dL Chloride (98-107) mmol/L Carbon Dioxide (22-30) mmol/L Glucose (74-99) mg/dL POC Glucose (mg/dL) 126 H 138 H 171 H (70-110) mg/dL 07/27/24 07/27/24 07/27/24 Range/Units 05:37 06:30 06:30 RBC 3.56 L (4.30-5.90) m/uL Hgb 9.7 L (13.0-17.5) gm/dL Hct 31.6 L (39.0-53.0) % MCHC 30.7 L (31.0-37.0) g/dL Chloride 112 H (98-107) mmol/L Carbon Dioxide 16 L (22-30) mmol/L Glucose 196 H (74-99) mg/dL POC Glucose (mg/dL) 177 H (70-110) mg/dL Assessment and Plan Assessment: * 69-year-old male, otherwise healthy, developed some difficulty with walking, imbalance in the last 2 weeks, right arm weakness, and then fell off the bed to the right side between the dresser in the wall, and not able to get up. EMS pulled him from that position. Patient had right shoulder dislocation. Examination reveals weakness in the right hand as well as right wrist drop. Acute CVA ruled out. Probable brachial plexopathy. * Acute influenza A infection with SIRS. * Right shoulder dislocation, status post-reduction * Diabetes * Hypertension * Hyperlipidemia * History of pituitary adenoma, on cabergoline * Chronic low back pain * Osteoarthritis * Obstructive sleep apnea * History of right knee surgery Plan: * MRI of the brain with and without contrast revealed multiple subtle tiny punctate areas of hyperintensity within the deep white matter are nonspecific but can be related to microvascular ischemic change. No acute ischemic areas identified. I personally reviewed MRI, agree with the findings. No evidence of acute ischemic stroke. * Patient probably has developed right brachial plexopathy, which uncertain his related to diabetes, or traumatic from falling and getting entrapped between the dresser and the wall, that led to shoulder dislocation. Patient's strength is improving in the right upper extremity on its own. Patient placed on Medrol Dosepak. Watch for blood sugars closely. Discussed with primary physician. * I had discussed with patient about an MRI of the brachial plexus, but he declined. He believes his right upper extremity is getting better. * Carotid Doppler revealed no evidence for hemodynamically significant stenosis. Antegrade flow in both vertebral arteries. * 2D echo revealed normal biventricular systolic function with LVEF 55 to 60%. Moderate concentric LVH. Normal left and right atrial size. No thrombus. No significant valvular abnormalities. * Hemoglobin A1c 6.4. Diabetes is well-controlled. * Lipid panel with cholesterol 109, LDL 47, HDL 37 and triglycerides 124 on 06/27/2024. No need to repeat. Patient on Crestor 20 mg at home. Currently started on Lipitor 40 mg. * B12 305, folate 8.5 on 11/11/2023. Needs B12 and folate replacement. TSH normal 1.020. * Orthopedic surgery on board for right shoulder dislocation * Patient started on aspirin 81 mg daily. * Patient completed course of ceftriaxone and Tamiflu. Patient being discharged on Zithromax. * DVT prophylaxis: Heparin 5000 units subcu every 8 hours * PT OT * Recommend patient undergo EMG and nerve conduction studies of right upper extremities as an outpatient. Recommend follow-up with neurologist. * Neurologically clear for discharge.
== END 2024-07-27 12:54 | disposition home health service (06) | DRG 872 ==
LOC: EC 05:54 → 6NMEDSUR 13:12 → OBSVTOIN 07-23 09:09
PROVIDERS: ADMIT Internal Medicine; ATTEND Internal Medicine
DX: A41.89 Other specified sepsis (principal); G54.0 Brachial plexus disorders; E11.42 Type 2 diabetes mellitus with diabetic polyneuropathy; E66.9 Obesity, unspecified; I10 Essential (primary) hypertension; Z68.41 Body mass index [BMI] 40.0-44.9, adult; Z11.52 Encounter for screening for COVID-19; S43.014A Anterior dislocation of right humerus, initial encounter; J20.9 Acute bronchitis, unspecified; E86.0 Dehydration; J10.1 Influenza due to other identified influenza virus with other respiratory manifestations; E78.2 Mixed hyperlipidemia; M19.90 Unspecified osteoarthritis, unspecified site; G47.33 Obstructive sleep apnea (adult) (pediatric); G89.29 Other chronic pain; M54.50 Low back pain, unspecified; M21.331 Wrist drop, right wrist; E87.6 Hypokalemia; E83.42 Hypomagnesemia; R29.6 Repeated falls; H40.9 Unspecified glaucoma; J30.9 Allergic rhinitis, unspecified; N40.0 Benign prostatic hyperplasia without lower urinary tract symptoms; R32 Unspecified urinary incontinence; W06.XXXA Fall from bed, initial encounter; Z79.84 Long term (current) use of oral hypoglycemic drugs; Z79.899 Other long term (current) drug therapy; Z82.49 Family history of ischemic heart disease and other diseases of the circulatory system; Z98.42 Cataract extraction status, left eye; Z98.41 Cataract extraction status, right eye
CPT/HCPCS: 23650; 36415; 70450; 70553; 71045; 80048; 80053; 81001; 82533; 82607; 82746; 83036; 83605; 83735; 83921; 84145; 84146; 84443; 84484; 85025; 85610; 85730; 87636; 93005; 93306; 93880; 96361; 96365; 96375; 99152; 99153; 99285

== ENCOUNTER → 2024-08-09 | Outpatient (CLI) | payer MEDICARE ==
[2024-08-09 15:01] LABS: Basophils # (A) 0.09 X 10*3/uL (0.00-0.10); Basophils % (A) 1.5 %; Eosinophils # (A) 0.28 X 10*3/uL (0.04-0.35); Eosinophils % (A) 4.7 %; HCT 34.6 % (39.6-50.0); HGB 10.4 g/dL (13.0-17.0); Lymphocytes # (A) 1.93 X 10*3/uL (0.90-5.00); Lymphocytes % (A) 32.6 %; MCH 26.2 pg (27.0-32.0); MCHC 30.1 g/dL (32.0-37.0); MCV 87.2 FL (80.0-97.0); Mean Platelet Volume 12.1 FL (9.5-12.2); Monocytes # (A) 0.38 X 10*3/uL (0.20-1.00); Monocytes % (A) 6.4 %; NRBC Per 100 WBC 0 X 10*3/uL (0.00-0.01); Neutrophils # (A) 3.22 X 10*3/uL (1.80-7.70); Neutrophils % (A) 54.5 %; Platelet Count 242 X 10*3/uL (140-440); RBC 3.97 X 10*6/uL (4.40-5.60); RDW 15.3 % (11.5-14.5); WBC 5.92 X 10*3/uL (4.50-10.00)
[2024-08-09 15:23] LABS: % Iron Saturation 19.48 (15.00-50.00); ALT 20 U/L (10-49); AST 17 U/L (14-35); Albumin 4.2 g/dL (3.8-4.9); Albumin/Globulin Ratio 1.27 Ratio (1.60-3.17); Alkaline Phosphatase 67 U/L (41-126); Blood Urea Nitrogen 12.6 mg/dL (9.0-27.0); Calcium 9.5 mg/dL (8.7-10.3); Carbon Dioxide 20.1 mmol/L (21.6-31.8); Chloride 106 mmol/L (96-109); Globulin 3.3 g/dL (1.6-3.3); Glucose 155 mg/dL (70-110); Iron 52 UG/DL (65-175); LDH 142 U/L (120-246); Magnesium 1.6 mg/dL (1.5-2.4); Potassium 3.6 mmol/L (3.5-5.5); Sodium 140 mmol/L (135-145); Total Bilirubin 0.8 mg/dL (0.3-1.2); Total Iron Binding Capacity 267 UG/DL (228-460); Total Protein 7.5 g/dL (6.2-8.2)
[2024-08-10 10:06] LABS: Protein, Total 7.4 g/dL (6.2-8.2)
[2024-08-10 13:35] LABS: Free Kappa Lt Chain Qnt, Serum 3.39 mg/dL (0.33-1.94); Free Lambda Lt Chain Qnt, Seru 2.45 mg/dL (0.57-2.63)
== END | disposition home or self-care (01) ==
LOC: LABWHC1 10:13
PROVIDERS: ATTEND Internal Medicine
DX: I10 Essential (primary) hypertension (principal); D64.9 Anemia, unspecified
CPT/HCPCS: 36415; 80053; 82525; 82607; 82728; 82746; 83010; 83540; 83550; 83615; 83735; 83883; 84165; 85025; 85045; 86334; 86335